=== PATIENT | female | born 2000 | race African-American/Black ===

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

== ENCOUNTER 2019-05-14 11:47 | Inpatient (IN) | payer MEDICAID ==
[2019-05-14] MEDS ORDERED: ONDANSETRON 4 MG TAB.RAPDIS PO ONE (12:46)
[2019-05-14] MEDS ORDERED: FENTANYL CITRATE INJ/PF 100 MCG/2 ML AMPUL IM ONE (12:47)
[2019-05-14] MEDS ORDERED: NORMAL SALINE 1000 ML 1,000 ML IV ONE ×2 (12:47→20:12)
--- NOTE | 2019-05-14 12:54 | ER Document Report ---
ED Medical Screen (RME) - General Chief Complaint: General Weakness Stated Complaint: WEAKNESS Time Seen by Provider: 05/14/19 12:39 Primary Care Provider: RUTH MCBRIDE MD [Primary Care Provider] - Follow up as needed Notes: Patient is a 18-year-old female who presents to the emergency department with abdominal pain. Patient is autistic and parents are at bedside to provide additional history. Parents state that she had abdominal pain starting yesterday and she had a couple of large bowel movements, but still has pain. States that she has been moaning and groaning since then. Parents state that 1 of the new caregivers was placing raw eggs in her Ramen noodles and letting them cook that way. Patient has a past medical history of an E. coli infection and was transferred to [place]. Exam: Patient holding abdomen, mildly tender mid abdomen. I have greeted and performed a rapid initial assessment of this patient. A comprehensive ED assessment and evaluation of the patient, analysis of test re sults and completion of medical decision making process will be conducted by an additional ED providers. TRAVEL OUTSIDE OF THE [place] IN LAST 30 DAYS: No - Related Data Allergies/Adverse Reactions: No Known Allergies Allergy (Verified 05/14/19 11:48) Past Medical History - Past Medical History Cardiac Medical History: Denies: Hx Congestive Heart Failure, Hx Coronary Artery Disease, Hx Hypertension, Hx Heart Murmur Renal/ Medical History: Denies: Hx Peritoneal Dialysis Past Surgical History: Reports: Hx Orthopedic Surgery - ankles and feet. Denies: Hx Cardiac Catheterization, Hx Pacemaker, Hx Valve Replacement, Hx Vascular Surgery - Immunizations Immunizations up to date: Yes Hx Diphtheria, Pertussis, Tetanus Vaccination: Yes History of Influenza Vaccine for 07/2017 - 12/2017 Season: No Physical Exam - Vital signs Vitals: Pulse Resp BP Pulse Ox 101 H 17 119/67 94 05/14/19 11:53 05/14/19 11:53 05/14/19 11:53 05/14/19 11:53 Course - Vital Signs Vital signs: Temp Pulse Resp BP Pulse Ox 101 H 17 119/67 94 05/14/19 11:53 05/14/19 11:53 05/14/19 11:53 05/14/19 11:53 Doctor's Discharge - Discharge Referrals: RUTH MCBRIDE MD [Primary Care Provider] - Follow up as needed
[2019-05-14] MEDS ORDERED: LORAZEPAM INJ 2 MG/1 ML VIAL IV ONE ×2 (14:41→16:20)
[2019-05-14] MEDS ORDERED: KETAMINE HCL INJ 500 MG/10 ML VIAL IV ONE ×2 (14:41→16:35)
--- NOTE | 2019-05-14 14:48 | ER Document Report ---
ED General - General Chief Complaint: General Weakness Stated Complaint: WEAKNESS Time Seen by Provider: 05/14/19 12:39 Primary Care Provider: RUTH MCBRIDE MD [ACTIVE STAFF] - Follow up as needed Information source: Parent Notes: 18-year-old autistic female brought in by parents for fevers over possible E. coli infection. Mother states that the patient has been having several large maliha wel movements as well as some diarrhea since last evening. Also states that the patient is having vomiting 1-2 times yesterday. Patient has been bending over complaining of abdominal pain and not sleeping since last evening. Mother checked the forehead temperature and it was normal. Mother states that the child was exposed to raw eggs when 1 of her caregivers felt her a raw egg cracked into a bowl of Ramen fresh from the microwave. Mother is very concerned because when she had similar symptoms to this last year the patient "had a E. coli and had to be life flighted and almost ." Mother states that they were never able to do any work-up without using ketamine. States that she would like the child to receive ketamine for sedation prior to doing any work-up. Has thus far refused any work-up. TRAVEL OUTSIDE OF THE [place] IN LAST 30 DAYS: No - Related Data Allergies/Adverse Reactions: No Known Allergies Allergy (Verified 05/14/19 11:48) Past Medical History - General Information source: Parent - Social History Smoking Status: Never Smoker Frequency of alcohol use: None Drug Abuse: None Family History: Reviewed & Not Pertinent Patient has suicidal ideation: No Patient has homicidal ideation: No - Past Medical History Cardiac Medical History: Denies: Hx Congestive Heart Failure, Hx Coronary Artery Disease, Hx Hypertension, Hx Heart Murmur Renal/ Medical History: Denies: Hx Peritoneal Dialysis Past Surgical History: Reports: Hx Orthopedic Surgery - ankles and feet. Denies: Hx Cardiac Catheterization, Hx Pacemaker, Hx Valve Replacement, Hx Vascular Surgery - Immunizations Immunizations up to date: Yes Hx Diphtheria, Pertussis, Tetanus Vaccination: Yes Review of Systems - Review of Systems -: Yes ROS unobtainable due to patient's medical condition - Patient is autistic and nonverbal. Physical Exam - Vital signs Vitals: Pulse Resp BP Pulse Ox 101 H 17 119/67 94 05/14/19 11:53 05/14/19 11:53 05/14/19 11:53 05/14/19 11:53 Interpretation: Tachycardic - Notes Notes: GENERAL: Laying in bed, covered by blanket, not interacting. Occasionally moans. HEAD: Normocephalic, atraumatic EYES: Eyes are closed, will not open them. ENT: Oral mucosa moist, tongue midline. NECK: Full range of motion, supple, trachea midline. LUNGS: Clear to auscultation bilaterally, no wheezes, rales or rhonchi, no respiratory distress. HEART: Regular rate and rhythm, no murmurs, gallops, rubs. ABDOMEN: Laying in her right hand side, flexed into a ball, will not roll onto her back, parents refused to help me roll onto her back. Abdomen is generally soft, some mild tenderness in the right lower quadrant, bowel sounds are present in all 4 quadrants. Abdominal exam is very difficult in her current position. EXTREMITIES: Moves all 4 extremities spontaneously, no edema, radial and dorsalis pedis pulses 2/4 bilaterally. No cyanosis. NEUROLOGICAL: Laying on the bed on her side, does not follow commands, screams when father attempts to hold her left hand so I can examine her abdomen, relativ melinda close to her baseline per mother. SKIN: Warm, Dry, normal turgor, no rashes or lesions noted. Course - Re-evaluation Re-evalutation: 05/14/19 20:10 CBC shows low platelets of 108 otherwise unremarkable, CMP shows slightly elevat ed AST at 93 otherwise unremarkable, lipase elevated 1882. Urinalysis does not show any signs of infection. CT scan of the abdomen and pelvis shows moderate inflammatory changes around the pancreas. Patient's work-up is concerning for pancreatitis. The patient did require a large amount of medication order sedate her enough to get her work-up completed. Patient was initially given 200 mg of ketamine IM with 2 mg of Ativan IM. Patient was still not able to cooperate with the blood draw, CAT scan and cath urine so we gave her another 2 mg of ketamine IM, this enabled us to get an IV and we gave her then 1 mg of Ativan through the IV and then after the mother told us that Ativan actually tends to make her more agitated rather than less agitated we stopped using Ativan and started giving ketamine through the IV. Of note I did tell the mother before we gave the Ativan that we are going to use Ativan like they did last time to sedate her and mother agreed with that plan. Did not make is aware of the fact that Ativan tends to agitate her daughter. Discussed with the parents that they would need to keep her on a clear liquid diet for the next 2 days and return if she worsens and they are very uncomfortable with this plan, patient is not neuro typical, they are concerned that they would not be able to appropriately care for her at home. I do agree with this potential concern, patient was discussed with Dr. Breaux who will admit the patient to his service for first-time pancreatitis. - Vital Signs Vital signs: Temp Pulse Resp BP Pulse Ox 99 H 15 133/91 H 98 05/14/19 19:30 05/14/19 19:30 05/14/19 19:30 05/14/19 19:30 - Laboratory Result Diagrams: 05/14/19 16:19 05/14/19 16:19 Laboratory results interpreted by me: 05/14/19 05/14/19 05/14/19 16:19 16:19 16:47 Hct 35.8 L RDW 14.1 H Plt Count 108 L Direct Bilirubin 0.6 H AST 93 H Lipase Urine Protein 100 H Urine Ketones 20 H Urine Bilirubin SMALL H Urine Urobilinogen 4.0 H 05/14/19 18:40 Hct RDW Plt Count Direct Bilirubin AST Lipase 1882.2 H Urine Protein Urine Ketones Urine Bilirubin Urine Urobilinogen Discharge - Discharge Clinical Impression: Pancreatitis, acute Condition: Stable Disposition: ADMITTED INPATIENT Admitting Provider: Saeid (Hospitalist) Unit Admitted: Medical Floor Referrals: RUTH MCBRIDE MD [ACTIVE STAFF] - Follow up as needed
[2019-05-14] MEDS ORDERED: KETAMINE HCL INJ 500 MG/10 ML VIAL IM ONE ×3 (15:01→16:04)
[2019-05-14] MEDS ORDERED: LORAZEPAM INJ 2 MG/1 ML VIAL IM ONE (15:02)
[2019-05-14] MEDS ORDERED: KETAMINE HCL INJ 500 MG/10 ML VIAL ONE (15:39)
[2019-05-14] MEDS ORDERED: LORAZEPAM INJ 2 MG/1 ML VIAL ONE (16:24)
[2019-05-14 16:39] LABS: ABSOLUTE LYMPHOCYTES (AUTO) 1.4 10^3/uL (0.5-4.7); ABSOLUTE MONOCYTES (AUTO) 0.9 10^3/uL (0.1-1.4); ABSOLUTE NEUT (AUTO) 6.4 10^3/uL (1.7-8.2); BASOPHILS % (AUTO) 0.5 % (0-2); EOSINOPHILS % (AUTO) 0.2 % (0-6); HEMATOCRIT 35.8 % (36.0-47.0); HEMOGLOBIN 12.1 g/dL (12.0-15.5); LYMPHOCYTES % (AUTO) 16.1 % (13-45); MEAN CORPUSCULAR HEMOGLOBIN 32.3 pg (27.0-33.4); MEAN CORPUSCULAR HGB CONC 33.9 g/dL (32.0-36.0); MEAN CORPUSCULAR VOLUME 95 fl (80-97); MONOCYTES % (AUTO) 10.6 % (3-13); RED BLOOD COUNT 3.75 10^6/uL (3.72-5.28); RED CELL DISTRIBUTION WIDTH 14.1 % (11.5-14.0); SEGMENTED NEUTROPHILS % (AUTO) 72.6 % (42-78); TOTAL CELLS COUNTED % (AUTO) 100 %; WHITE BLOOD COUNT 8.8 10^3/uL (4.0-10.5)
[2019-05-14 16:58] LABS: PLATELET COUNT 108 10^3/uL (150-450)
[2019-05-14 17:13] LABS: ALBUMIN 3.7 g/dL (3.7-5.6); ALKALINE PHOSPHATASE 50 U/L (50-135); ANION GAP 13 (5-19); ASPARTATE AMINO TRANSFERASE 93 U/L (5-30); BILIRUBIN,DIRECT 0.6 mg/dL (0.0-0.4); BILIRUBIN,TOTAL 0.8 mg/dL (0.2-1.3); BLOOD UREA NITROGEN 14 mg/dL (7-20); CALCIUM 8.6 mg/dL (8.4-10.2); CARBON DIOXIDE 23 mmol/L (22-30); CHLORIDE 103 mmol/L (98-107); GLUCOSE 98 mg/dL (75-110); POTASSIUM 4.4 mmol/L (3.6-5.0); TOTAL PROTEIN 7.7 g/dL (6.3-8.2)
[2019-05-14 17:18] LABS: APPEARANCE,URINE CLEAR; BILIRUBIN,URINE SMALL (NEGATIVE); COLOR,URINE AMBER; GLUCOSE, URINE NEGATIVE (NEGATIVE); KETONES,URINE 20 mg/dL (NEGATIVE); LEUKOCYTE ESTERASE,URINE NEGATIVE (NEGATIVE); NITRITE,URINE NEGATIVE (NEGATIVE); PROTEIN,URINE 100 mg/dL (NEGATIVE); URINE SPECIFIC GRAVITY 1.025
--- NOTE | 2019-05-14 18:29 | RADIOLOGY REPORT (SQ) ---
EXAM DESCRIPTION: CT ABD/PELVIS WITH IV ONLY COMPLETED DATE/TIME: 05/14/2019 5:53 pm REASON FOR STUDY: vomiting, diarrhea, abdominal pain COMPARISON: None. TECHNIQUE: CT scan of the abdomen and pelvis performed using helical scanning technique with dynamic intravenous contrast injection. No oral contrast. Images reviewed with lung, soft tissue, and bone w indows. Reconstructed coronal and sagittal MPR images reviewed. Delayed images for evaluation of the urinary system also acquired. All images stored on PACS. All CT scanners at this facility use dose modulation, iterative reconstruction, and/or weight based d osing when appropriate to reduce radiation dose to as low as reasonably achievable (ALARA). [facility]: Dose Right [facility]: CareDose [facility]: Dose Right [facility]: Teradose 4D [facility]: [place]-8 CONTRAST TYPE AND DOSE: contrast/concentration: Isovue 350.00 mg/ml; Total Contrast Delivered: 97.0 ml; Total Saline Delivered: 72.0 ml RENAL FUNCTION: None required. The patient is less than 50 years old. RADIATION DOSE: CT Rad equipment meets quality standard of care and radiation dose reduction techniq ues were employed. CTDIvol: 18.4 - 20.3 mGy. DLP: 2345 mGy-cm.. LIMITATIONS: None. FINDINGS: LOWER CHEST: Minimal subsegmental atelectasis. LIVER: Normal size. No enhancing masses. No dilated ducts. SPLEEN: Normal size. No focal lesions. PANCREAS: Moderate inflammation adjacent to the pancreas. Pancreatic duct not dilated. GALLBLADDER: No calcified stones. No inflammatory changes to suggest cholecystitis. ADRENAL GLANDS: No significant masses. RIGHT KIDNEY AND URETER: No cysts identified. No solid masses identified. No calcified stones. No hyd ronephrosis or hydroureter. LEFT KIDNEY AND URETER: No cysts identified. No solid masses identified. No calcified stones. No hydr onephrosis or hydroureter. AORTA AND VESSELS: No aneurysm. No dissection. Renal arteries, SMA, celiac without significant stenos is. RETROPERITONEUM: No bulky retroperitoneal adenopathy. BOWEL AND PERITONEAL CAVITY: No obstruction or inflammatory changes. No free fluid. APPENDIX: Normal. PELVIS: Moderate free fluid. Unremarkable bladder. ABDOMINAL WALL: No masses. No hernias. BONES: No acute findings. OTHER: No other significant finding. IMPRESSION: Moderate inflammation adjacent to the pancreas. TECHNICAL DOCUMENTATION: JOB ID: [id number] Quality ID # [id number]: Final reports with documentation of one or more dose reduction techniques (e.g., Au tomated exposure control, adjustment of the mA and/or kV according to patient size, use of iterative reconstruction technique) 2010 [employer]- All Rights Reserved Reading location - IP/workstation name: [email or web address]
[2019-05-14] MEDS ORDERED: ACETAMINOPHEN 325 MG TABLET PO PRN (20:07)
[2019-05-14] MEDS ORDERED: MAG HYDROX/AL HYDROX/SIMETH SUSP 30 ML UDCUP PO PRN (20:07)
[2019-05-14] MEDS ORDERED: LACTULOSE SYRUP 20 GM/30 ML UDCUP PO ONE (20:17)
[2019-05-14] MEDS ORDERED: ARIPIPRAZOLE 5 MG TABLET PO ONE (21:00)
[2019-05-14] MEDS ORDERED: KETOROLAC TROMETHAMINE INJ/PF 30 MG/1 ML SDV IV PRN (21:24)
[2019-05-14] MEDS: HEPARIN SOD (PORCINE) 5,000 UNIT/ML 1 ML VIAL SUBCUT SCH (21:40)
[2019-05-14] MEDS: KETOROLAC TROMETHAMINE INJ/PF 30 MG/1 ML SDV IV PRN (21:40)
--- NOTE | 2019-05-15 03:10 | PDOC H&P ---
History of Present Illness Admission Date/PCP: 05/14/19 20:24 GERBER REDDY Patient complains of: Vomiting History of Present Illness: AARTI WOODALL is a 18 year old female with a past medical history of autism, obesity and nonverbal state at baseline. She presents with 2 episodes of vomiting and constipation prompting evaluation that required Ativan and ketamine sedation she is found to have acute pancreatitis and constipation with a lipase of 1800, CT with inflammatory changes about the pancreas and moderate stool retention. She is referred to the hospitalist for admission. She is in a drowsy state and uncooperative. Patient's family at bedside denies recent change in medications. Denies previous episode. Past Medical History Cardiac Medical History: Denies: Congestive Heart Failure, Coronary Artery Disease, Hypertension, Heart Murmur Neurological Medical History: Reports: Other - Autism and nonverbal at baseline Endocrine Medical History: Reports: Obesity Psychiatric Medical History: Denies: Depression Past Surgical History Past Surgical History: Reports: Orthopedic Surgery - ankles and feet Denies: Cardiac Catheterization, Pacemaker, Valve Replacement, Vascular Surge ry Social History Information Source: Relative, [facility] Records Lives with: Family Smoking Status: Never Smoker Frequency of Alcohol Use: None Hx Recreational Drug Use: No Drugs: None Hx Prescription Drug Abuse: No - Advance Directive Resuscitation Status: Full Code Family History Family History: DM, Other - End-stage renal failure mother Parental Family History Reviewed: Yes Children Family History Reviewed: Yes Sibling(s) Family History Reviewed.: Yes Medication/Allergy Home Medications: Chlorpromazine HCl [Chlorpromazine HCL 200 mg Tablet] 200 mg PO Q12 03/14/18 Divalproex Sodium [Depakote ER 500 mg Tab.sr] 1,000 mg PO QPM 03/14/18 Divalproex Sodium [Depakote ER 500 mg Tab.sr] 500 mg PO QAM 03/14/18 Guanfacine HCl 1 mg PO QAM 03/14/18 Guanfacine HCl 2 mg PO QHS 03/14/18 Naltrexone 50 mg PO BID 03/14/18 Norethindrone-E.estradiol-Iron [Loestrin Fe 1-20 Tablet] 1 each PO DAILY 03/14/18 Propranolol HCl [Inderal 10 mg Tablet] 10 mg PO Q12 03/14/18 Quetiapine Fumarate [Seroquel] 50 mg PO QAM 03/14/18 Quetiapine Fumarate [Seroquel] 150 mg PO QHS 03/14/18 Trazodone HCl [Desyrel] 300 mg PO QHS 03/14/18 Trihexyphenidyl HCl 5 mg PO Q12 03/14/18 Allergies/Adverse Reactions: No Known Allergies Allergy (Verified 05/14/19 11:48) Review of Systems ROS unobtainable: Due to mental status Physical Exam Vital Signs: Temp Pulse Resp BP Pulse Ox 98.6 F 100 H 16 111/71 98 05/15/19 00:00 05/15/19 00:00 05/15/19 00:00 05/15/19 00:00 05/15/19 00:00 Intake & Output 05/13/19 05/14/19 05/15/19 11:59 11:59 11:59 Intake Total 1999 Balance 1999 Weight 95.1 kg 99.4 kg General appearance: PRESENT: mild distress, morbidly obese, well-developed, well-nourished. ABSENT: cooperative Head exam: PRESENT: atraumatic, normocephalic Eye exam: PRESENT: conjunctiva pink, EOMI, PERRLA. ABSENT: scleral icterus Ear exam: PRESENT: normal external ear exam Mouth exam: PRESENT: moist, tongue midline Neck exam: ABSENT: carotid bruit, JVD, lymphadenopathy, thyromegaly Respiratory exam: PRESENT: clear to auscultation marisela. ABSENT: rales, rhonchi, wheezes Cardiovascular exam: PRESENT: RRR. ABSENT: diastolic murmur, rubs, systolic murmur Pulses: PRESENT: normal dorsalis pedis pul Vascular exam: PRESENT: normal capillary refill GI/Abdominal exam: PRESENT: distended, hypoactive bowel sounds, normal bowel sounds, soft, tenderness. ABSENT: guarding, mass, organolmegaly, rebound Rectal exam: PRESENT: deferred Extremities exam: PRESENT: full ROM. ABSENT: calf tenderness, clubbing, pedal edema Neurological exam: PRESENT: alert, awake, oriented to person, oriented to place, oriented to time, oriented to situation, CN II-XII grossly intact. ABSENT: motor sensory deficit Psychiatric exam: PRESENT: appropriate affect, normal mood. ABSENT: homicidal i deation, suicidal ideation Skin exam: PRESENT: dry, intact, warm. ABSENT: cyanosis, rash Results Laboratory Results: 05/14/19 16:19 05/14/19 16:19 05/14/19 05/14/19 05/14/19 16:19 16:19 16:19 WBC 8.8 RBC 3.75 Hgb 12.1 Hct 35.8 L MCV 95 MCH 32.3 MCHC 33.9 RDW 14.1 H Plt Count 108 L Seg Neutrophils % 72.6 Lymphocytes % 16.1 Monocytes % 10.6 Eosinophils % 0.2 Basophils % 0.5 Absolute Neutrophils 6.4 Absolute Lymphocytes 1.4 Absolute Monocytes 0.9 Absolute Eosinophils 0.0 Absolute Basophils 0.0 Sodium 138.6 Potassium 4.4 Chloride 103 Carbon Dioxide 23 Anion Gap 13 BUN 14 Creatinine 0.96 Est GFR ( Amer) > 60 Est GFR (Non-Af Amer) > 60 Glucose 98 Lactic Acid 1.6 Calcium 8.6 Total Bilirubin 0.8 AST 93 H Alkaline Phosphatase 50 Ammonia Total Protein 7.7 Albumin 3.7 Lipase Urine Color Urine Appearance Urine pH Ur Specific [place] Urine Protein Urine Glucose (UA) Urine Ketones Urine Blood Urine Nitrite Ur Leukocyte Esterase Urine WBC (Auto) Urine RBC (Auto) 05/14/19 05/14/19 05/14/19 16:47 18:40 22:55 WBC RBC Hgb Hct MCV MCH MCHC RDW Plt Count Seg Neutrophils % Lymphocytes % Monocytes % Eosinophils % Basophils % Absolute Neutrophils Absolute Lymphocytes Absolute Monocytes Absolute Eosinophils Absolute Basophils Sodium Potassium Chloride Carbon Dioxide Anion Gap BUN Creatinine Est GFR ( Amer) Est GFR (Non-Af Amer) Glucose Lactic Acid Calcium Total Bilirubin AST Alkaline Phosphatase Ammonia 12.3 Total Protein Albumin Lipase 1882.2 H Urine Color SIMONA Urine Appearance CLEAR Urine pH 6.0 Ur Specific [place] 1.025 Urine Protein 100 H Urine Glucose (UA) NEGATIVE Urine Ketones 20 H Urine Blood NEGATIVE Urine Nitrite NEGATIVE Ur Leukocyte Esterase NEGATIVE Urine WBC (Auto) 6 Urine RBC (Auto) 7 Impressions: Abdomen/Pelvis CT 05/14/19 14:41 IMPRESSION: Moderate inflammation adjacent to the pancreas. Assessment and Plan - Diagnosis (1) Pancreatitis, acute Is this a current diagnosis for this admission?: Yes Plan: Bowel rest, hydration, symptomatic management, follow-up chemistry and triglycerides. Trial p.o. clear liquid diet with no longer requesting narcotic analgesia. Advance diet as tolerated. (2) Abdominal pain Is this a current diagnosis for this admission?: Yes Plan: Secondary to #1, symptom medic management avoid narcotics (3) Encephalopathy Is this a current diagnosis for this admission?: Yes Plan: Complicated by severe autism, follow-up valproic acid level, Abilify and Haldol as needed - Time Time Spent with patient: 35 or more minutes - Inpatient Certification Medical Necessity: Need Close Monitoring Due to Risk of Patient Decompensation
[2019-05-15] MEDS: HEPARIN SOD (PORCINE) 5,000 UNIT/ML 1 ML VIAL SUBCUT SCH ×3 (05:17→22:00)
[2019-05-15] MEDS: KETOROLAC TROMETHAMINE INJ/PF 30 MG/1 ML SDV IV PRN (06:24)
[2019-05-15 06:36] LABS: ABSOLUTE MONOCYTES (AUTO) 0.8 10^3/uL (0.1-1.4); ABSOLUTE NEUT (AUTO) 4.7 10^3/uL (1.7-8.2); BASOPHILS % (AUTO) 0.2 % (0-2); EOSINOPHILS % (AUTO) 0.1 % (0-6); HEMOGLOBIN 10.8 g/dL (12.0-15.5); LYMPHOCYTES % (AUTO) 26.7 % (13-45); MEAN CORPUSCULAR HEMOGLOBIN 32.7 pg (27.0-33.4); MEAN CORPUSCULAR HGB CONC 33.8 g/dL (32.0-36.0); MEAN CORPUSCULAR VOLUME 97 fl (80-97); MONOCYTES % (AUTO) 10.7 % (3-13); PLATELET COUNT 122 10^3/uL (150-450); RED BLOOD COUNT 3.31 10^6/uL (3.72-5.28); RED CELL DISTRIBUTION WIDTH 14.4 % (11.5-14.0); SEGMENTED NEUTROPHILS % (AUTO) 62.3 % (42-78); TOTAL CELLS COUNTED % (AUTO) 100 %; WHITE BLOOD COUNT 7.5 10^3/uL (4.0-10.5)
[2019-05-15 06:59] LABS: ALBUMIN 2.9 g/dL (3.7-5.6); ALKALINE PHOSPHATASE 51 U/L (50-135); ANION GAP 9 (5-19); ASPARTATE AMINO TRANSFERASE 46 U/L (5-30); BILIRUBIN,DIRECT 0.3 mg/dL (0.0-0.4); BILIRUBIN,TOTAL 0.4 mg/dL (0.2-1.3); BLOOD UREA NITROGEN 11 mg/dL (7-20); CARBON DIOXIDE 22 mmol/L (22-30); CHLORIDE 109 mmol/L (98-107); GLUCOSE 76 mg/dL (75-110); POTASSIUM 3.7 mmol/L (3.6-5.0); TOTAL PROTEIN 6.1 g/dL (6.3-8.2); TRIGLYCERIDES 75 mg/dL (<150)
[2019-05-15] MEDS ORDERED: LORAZEPAM INJ 2 MG/1 ML VIAL IV PRN (07:46)
[2019-05-15] MEDS ORDERED: MORPHINE SULFATE 10 MG/ML INJ IV PRN (07:46)
[2019-05-15] MEDS: DOCUSATE SODIUM 100 MG CAPSULE PO SCH ×2 (09:07→17:00)
[2019-05-15] MEDS ORDERED: NORMAL SALINE 1000 ML 1,000 ML IV PRN (09:38)
[2019-05-15] MEDS: LORAZEPAM INJ 2 MG/1 ML VIAL IV PRN ×4 (13:31→22:04)
[2019-05-15] MEDS: MORPHINE SULFATE 10 MG/ML INJ IV PRN ×4 (13:34→19:53)
[2019-05-15] MEDS ORDERED: NORMAL SALINE 1000 ML 1,000 ML IV ONE (14:39)
[2019-05-15] MEDS ORDERED: CHLORPROMAZINE HCL INJ 25 MG/1 ML AMPULE IV PRN (15:44)
--- NOTE | 2019-05-15 17:50 | PDOC PROGRESS REPORT ---
Subjective Progress Note for:: 05/15/19 Subjective:: AARTI WOODALL is a 18 year old female with a past medical history of autism, obesity and nonverbal state at baseline admitted 05/14/2019 for acute pancreatitis. The patient was seen on morning rounds and again this afternoon when her brother was present. During both visits, the patient was sleeping comfortably in prone position. Exam was limited secondary to positioning, and desire not to cause the patient undue anxiety/agitation. Per the patient's brother, she is nonverbal at baseline and has extreme difficulty with new situations and tasks. He advises that even during m minor doctor's visits and hospital stays she requires sedation. ROS is limited secondary to her baseline mental status and current medications on board. She does appear to be comfortable and not in any acute distress at this time. Discussed plan of care with nursing on multiple occasions today. Reason For Visit: ACUTE PANCREATITIS Physical Exam Vital Signs: Temp Pulse Resp BP Pulse Ox 98.5 F 93 H 17 128/75 H 96 05/15/19 08:00 05/15/19 16:00 05/15/19 16:00 05/15/19 08:00 05/15/19 16:00 Intake & Output 05/14/19 05/15/19 05/16/19 06:59 06:59 06:59 Intake Total 1999 1183 Balance 1999 1183 Weight 99.4 kg General appearance: PRESENT: no acute distress, morbidly obese, well-developed, well-nourished Head exam: PRESENT: atraumatic, normocephalic Eye exam: PRESENT: conjunctiva pink, EOMI, PERRLA. ABSENT: scleral icterus Mouth exam: PRESENT: moist, tongue midline Neck exam: ABSENT: carotid bruit, JVD, lymphadenopathy, thyromegaly Respiratory exam: PRESENT: clear to auscultation marisela, symmetrical, unlabored. ABSENT: rales, rhonchi, wheezes Pulses: PRESENT: normal dorsalis pedis pul Vascular exam: PRESENT: normal capillary refill GI/Abdominal exam: PRESENT: soft Rectal exam: PRESENT: deferred Extremities exam: PRESENT: full ROM. ABSENT: calf tenderness, clubbing, pedal edema Musculoskeletal exam: PRESENT: ambulatory Neurological exam: PRESENT: CN II-XII grossly intact, other - Arousable, oriented to baseline. ABSENT: motor sensory deficit Psychiatric exam: PRESENT: anxious Skin exam: PRESENT: dry, intact, warm. ABSENT: cyanosis, rash Results Laboratory Results: 05/15/19 05:40 05/15/19 05:40 05/14/19 05/14/19 05/15/19 18:40 22:55 05:40 WBC RBC Hgb Hct MCV MCH MCHC RDW Plt Count Seg Neutrophils % Lymphocytes % Monocytes % Eosinophils % Basophils % Absolute Neutrophils Absolute Lymphocytes Absolute Monocytes Absolute Eosinophils Absolute Basophils Sodium 140.1 Potassium 3.7 Chloride 109 H Carbon Dioxide 22 Anion Gap 9 BUN 11 Creatinine 0.76 Est GFR ( Amer) > 60 Est GFR (Non-Af Amer) > 60 Glucose 76 Calcium 8.0 L Total Bilirubin 0.4 AST 46 H Alkaline Phosphatase 51 Ammonia 12.3 Total Protein 6.1 L Albumin 2.9 L Triglycerides 75 Lipase 1882.2 H 05/15/19 05:40 WBC 7.5 RBC 3.31 L Hgb 10.8 L Hct 32.0 L MCV 97 MCH 32.7 MCHC 33.8 RDW 14.4 H Plt Count 122 L Seg Neutrophils % 62.3 Lymphocytes % 26.7 Monocytes % 10.7 Eosinophils % 0.1 Basophils % 0.2 Absolute Neutrophils 4.7 Absolute Lymphocytes 2.0 Absolute Monocytes 0.8 Absolute Eosinophils 0.0 Absolute Basophils 0.0 Sodium Potassium Chloride Carbon Dioxide Anion Gap BUN Creatinine Est GFR ( Amer) Est GFR (Non-Af Amer) Glucose Calcium Total Bilirubin AST Alkaline Phosphatase Ammonia Total Protein Albumin Triglycerides Lipase Impressions: Abdomen/Pelvis CT 05/14/19 14:41 IMPRESSION: Moderate inflammation adjacent to the pancreas. Assessment and Plan - Diagnosis (1) Pancreatitis, acute Is this a current diagnosis for this admission?: Yes Plan: Patient is admitted to the medical floor. Lipase is elevated to 1882. Check lipid panel with a.m. lab work. Currently in n.p.o. status. Antiemetics and analgesics as needed. Have discussed with nursing, patient to receive 1 L normal saline bolus following her next pain medication administration (administer so as continuous IV fluids have caused the patient to have severe anxiety/agitation; this way her fluid boluses will hopefully be done by the time she wakes following morphine). She did receive 2 L normal saline by the ED provider yesterday. We will need to monitor closely for evidence of dehydration while getting intermittent fluid boluses. Advance to clear liquids as tolerated. (2) Abdominal pain Is this a current diagnosis for this admission?: Yes Plan: Secondary to #1 Analgesics as needed. (3) Encephalopathy Is this a current diagnosis for this admission?: Yes Plan: Complicated by severe autism Valproic acid 67.1 Continue home medication regiment. IV Ativan as needed Spoke with mental health, recommended as needed Thorazine. (4) Autism Is this a current diagnosis for this admission?: Yes Plan: Home medication regimen is continued. Family members are encouraged to stay with patient. Sitter for safety. - Time Time Spent with patient: 35 or more minutes Medications reviewed and adjusted accordingly: Yes Anticipated discharge: Home Within: within 48 hours
[2019-05-15] MEDS ORDERED: NALTREXONE 50 MG PO SCH (18:00)
[2019-05-15] MEDS: DIVALPROEX SODIUM 500 MG TAB.SR.24H PO SCH (18:27)
[2019-05-15] MEDS ORDERED: TRAZODONE HCL 50 MG TABLET PO SCH (22:00)
[2019-05-15] MEDS ORDERED: QUETIAPINE FUMARATE 100 MG TABLET PO SCH (22:00)
[2019-05-15] MEDS ORDERED: (PENDING PHARMACY ID) (Trazodone Hcl [Desyrel] 300 MG) PO SCH (22:00)
[2019-05-15] MEDS ORDERED: QUETIAPINE FUMARATE 150 MG PO SCH (22:00)
[2019-05-15] MEDS ORDERED: ARIPIPRAZOLE 5 MG TABLET PO SCH (22:00)
[2019-05-15] MEDS ORDERED: GUANFACINE HCL 2 MG PO SCH (22:00)
[2019-05-15] MEDS ORDERED: CHLORPROMAZINE HCL PO SCH (22:00)
[2019-05-15] MEDS ORDERED: QUETIAPINE FUMARATE 25 MG TABLET PO SCH (22:00)
[2019-05-15] MEDS: PROPRANOLOL HCL 10 MG TABLET PO SCH (22:07)
[2019-05-15] MEDS: CHLORPROMAZINE HCL 50 MG TABLET PO SCH (22:08)
[2019-05-16] MEDS: MORPHINE SULFATE 10 MG/ML INJ IV PRN ×5 (03:51→12:23)
[2019-05-16] MEDS: LORAZEPAM INJ 2 MG/1 ML VIAL IV PRN ×4 (04:43→12:23)
[2019-05-16] MEDS: HEPARIN SOD (PORCINE) 5,000 UNIT/ML 1 ML VIAL SUBCUT SCH ×3 (05:12→21:22)
[2019-05-16 06:54] LABS: HEMATOCRIT 31.1 % (36.0-47.0); HEMOGLOBIN 10.5 g/dL (12.0-15.5); MEAN CORPUSCULAR HEMOGLOBIN 33.1 pg (27.0-33.4); MEAN CORPUSCULAR HGB CONC 33.7 g/dL (32.0-36.0); MEAN CORPUSCULAR VOLUME 98 fl (80-97); PLATELET COUNT 140 10^3/uL (150-450); RED BLOOD COUNT 3.17 10^6/uL (3.72-5.28); WHITE BLOOD COUNT 6.7 10^3/uL (4.0-10.5)
[2019-05-16 07:09] LABS: ALKALINE PHOSPHATASE 46 U/L (50-135); ANION GAP 10 (5-19); ASPARTATE AMINO TRANSFERASE 53 U/L (5-30); BILIRUBIN,DIRECT 0.4 mg/dL (0.0-0.4); BILIRUBIN,TOTAL 0.4 mg/dL (0.2-1.3); BLOOD UREA NITROGEN 10 mg/dL (7-20); CALCIUM 8.5 mg/dL (8.4-10.2); CARBON DIOXIDE 21 mmol/L (22-30); CHLORIDE 110 mmol/L (98-107); CHOLESTEROL 156.24 mg/dL (0-200); GLUCOSE 76 mg/dL (75-110); POTASSIUM 4.2 mmol/L (3.6-5.0); TOTAL PROTEIN 6.2 g/dL (6.3-8.2); TRIGLYCERIDES 97 mg/dL (<150)
[2019-05-16 07:20] LABS: DIRECT LDL 92 mg/dL (<100)
[2019-05-16] MEDS ORDERED: NORMAL SALINE 1000 ML 1,000 ML IV PRN (07:54)
--- NOTE | 2019-05-16 07:59 | Progress Note Acknowledgement ---
Progress Note Acknowledgement Progess Note Acknowledgement: I, the undersigned member of the medical staff with appropriate privileges and with supervisory authority over [Akash Mendoza], a dependent practice allied health professional, acknowledge that I have reviewed the progress notes entered on this patient, and in my professional judgment believe that the assessment made and/or any care evidenced was appropriate
[2019-05-16] MEDS ORDERED: QUETIAPINE FUMARATE 25 MG TABLET PO SCH (08:00)
[2019-05-16] MEDS ORDERED: (PENDING PHARMACY ID) (Guanfacine Hcl [Guanfacine Hcl] 1 MG) PO SCH (08:00)
[2019-05-16] MEDS ORDERED: (PENDING PHARMACY ID) (Quetiapine Fumarate [Seroquel] 50 MG) PO SCH (08:00)
[2019-05-16] MEDS ORDERED: DIVALPROEX SODIUM 500 MG TAB.SR.24H PO SCH (08:00)
--- NOTE | 2019-05-16 08:03 | PDOC PROGRESS REPORT ---
Subjective Progress Note for:: 05/16/19 Subjective:: May 16, 2019-unable to assess secondary to autism Reason For Visit: ACUTE PANCREATITIS Physical Exam Vital Signs: Temp Pulse Resp BP Pulse Ox 98.4 F 103 H 17 116/69 94 05/16/19 00:00 05/16/19 00:00 05/16/19 00:00 05/16/19 00:00 05/16/19 00:00 Intake & Output 05/15/19 05/16/19 05/17/19 06:59 06:59 06:59 Intake Total 1999 1183 Balance 1999 118 Weight 99.4 kg 35.4 kg General appearance: PRESENT: no acute distress, well-developed, well-nourished Neck exam: ABSENT: carotid bruit, JVD, lymphadenopathy, thyromegaly Respiratory exam: PRESENT: clear to auscultation marisela. ABSENT: rales, rhonchi, wheezes Cardiovascular exam: PRESENT: bradycardia Pulses: PRESENT: normal carotid pulses Vascular exam: PRESENT: normal capillary refill GI/Abdominal exam: PRESENT: normal bowel sounds, soft. ABSENT: distended, guarding, mass, organolmegaly, rebound, tenderness Extremities exam: PRESENT: full ROM. ABSENT: calf tenderness, clubbing, pedal edema Neurological exam: PRESENT: alert, awake, oriented to person, oriented to place, oriented to time, oriented to situation, CN II-XII grossly intact. ABSENT: tom r sensory deficit Psychiatric exam: PRESENT: other - Unable to assess secondary to autism Focused psych exam: PRESENT: other - Unable to assess secondary to autism Skin exam: PRESENT: dry, intact, warm. ABSENT: cyanosis, rash Results Laboratory Results: 05/16/19 06:25 05/16/19 06:25 05/16/19 05/16/19 06:25 06:25 WBC 6.7 RBC 3.17 L Hgb 10.5 L Hct 31.1 L MCV 98 H MCH 33.1 MCHC 33.7 RDW 14.0 Plt Count 140 L Sodium 141.1 Potassium 4.2 Chloride 110 H Carbon Dioxide 21 L Anion Gap 10 BUN 10 Creatinine 0.81 Est GFR ( Amer) > 60 Est GFR (Non-Af Amer) > 60 Glucose 76 Calcium 8.5 Total Bilirubin 0.4 AST 53 H Alkaline Phosphatase 46 L Total Protein 6.2 L Albumin 3.0 L Triglycerides 97 Cholesterol 156.24 LDL Cholesterol Direct 92 VLDL Cholesterol 19.0 HDL Cholesterol 49 Impressions: Abdomen/Pelvis CT 05/14/19 14:41 IMPRESSION: Moderate inflammation adjacent to the pancreas. Assessment and Plan - Diagnosis (1) Pancreatitis, acute Is this a current diagnosis for this admission?: Yes Plan: Patient is admitted to the medical floor. Lipase is elevated to 1882. Check lipid panel with a.m. lab work. Currently in n.p.o. status. Antiemetics and analgesics as needed. Have discussed with nursing, patient to receive 1 L normal saline bolus following her next pain medication administration (administer so as continuous IV fluids have caused the patient to have severe anxiety/agitation; this way her fluid boluses will hopefully be done by the time she wakes following morphine). She did receive 2 L normal saline by the ED provider yesterday. We will need to monitor closely for evidence of dehydration while getting intermittent fluid boluses. Advance to clear liquids as tolerated. May 16, 2019-awaiting repeat lipase. Continue n.p.o. status. Continue normal saline at 100 mL an hour. Once I have a review of her most recent lipase I will make determination on advancing diet at that time. (2) Abdominal pain Is this a current diagnosis for this admission?: Yes Plan: Secondary to #1 Analgesics as needed. May 16, 2019-continue PRN morphine. (3) Encephalopathy Is this a current diagnosis for this admission?: Yes Plan: Complicated by severe autism Valproic acid 67.1 Continue home medication regiment. IV Ativan as needed Spoke with mental health, recommended as needed Thorazine. May 16, 2019-unable to assess secondary to severe autism. Continue home medications as well as as needed Ativan for agitation. We will continue Thor azine as needed as well. (4) Autism Is this a current diagnosis for this admission?: Yes Plan: Home medication regimen is continued. Family members are encouraged to stay with patient. Sitter for safety. May 16, 2019-continue home medications, sitter at bedside. (5) UTI (urinary tract infection) Is this a current diagnosis for this admission?: Yes Plan: May 16, 2019-urine culture showing gram-negative rods. At this time we will start Rocephin 1 g IV daily await cultures returned with sensitivity. - Time Time Spent with patient: 15-24 minutes - Inpatient Certification Based on my medical assessment, after consideration of the patient's comorbidities, presenting symptoms, or acuity I expect that the services needed warrant INPATIENT care.: Yes I certify that my determination is in accordance with my understanding of Medicare's requirements for reasonable and necessary INPATIENT services [42 CFR 412.3e].: Yes Medical Necessity: Other - IV fluids, IV antibiotics, pain control.
[2019-05-16] MEDS ORDERED: CEFTRIAXONE SODIUM 1,000 MG in DEXTROSE 5%-WATER 50 ML IV SCH (10:00)
[2019-05-16] MEDS ORDERED: [UNRECOGNIZED DRUG - OTHER] PO SCH (10:00)
[2019-05-16] MEDS ORDERED: CEFTRIAXONE 1 GM/D5W RTU 1 GM/50 ML RTUPB IV SCH (10:00)
[2019-05-16] MEDS ORDERED: TRIHEXYPHENIDYL HCL 5 MG TABLET PO SCH (10:00)
[2019-05-16] MEDS: DOCUSATE SODIUM 100 MG CAPSULE PO SCH ×2 (11:52→18:00)
[2019-05-16] MEDS: CHLORPROMAZINE HCL 50 MG TABLET PO SCH (11:53)
[2019-05-16] MEDS: PROPRANOLOL HCL 10 MG TABLET PO SCH (11:53)
[2019-05-16] MEDS ORDERED: NALOXONE HCL INJ/PF 0.4 MG/1 ML SDV ONE ×2 (12:50→14:20)
[2019-05-16] MEDS ORDERED: FLUMAZENIL INJ 0.5 MG/5 ML VIAL ONE ×2 (13:02→14:20)
[2019-05-16 13:31] LABS: ARTERIAL BLOOD BASE EXCESS -6.9 mmol/L; ARTERIAL BLOOD H2CO3 1.38 mmol/L (1.05-1.35); ARTERIAL BLOOD PH 7.26 (7.35-7.45); ARTERIAL BLOOD PO2 177.8 mmHg (80-100); ARTERIAL BLOOD TOTAL CO2 21.5 mmol/L (21-25)
[2019-05-16 13:32] LABS: ARTERIAL BLOOD FIO2 100%
[2019-05-16] MEDS ORDERED: PROPOFOL 1,000 MG/100 ML INFUS..BTL IV PRN (13:33)
[2019-05-16] MEDS ORDERED: MIDAZOLAM 2 MG/2 ML INJ ONE (13:40)
[2019-05-16] MEDS: NORMAL SALINE 1000 ML 1,000 ML IV PRN ×2 (14:12→22:12)
[2019-05-16] MEDS: PROPOFOL 1,000 MG/100 ML INFUS..BTL IV PRN ×3 (14:13→22:02)
--- NOTE | 2019-05-16 14:38 | RADIOLOGY REPORT (SQ) ---
EXAM DESCRIPTION: CHEST SINGLE VIEW COMPLETED DATE/TIME: 05/16/2019 2:25 pm REASON FOR STUDY: ET TUBE PLACEMENT COMPARISON: 03/13/2018 NUMBER OF VIEWS: One view. TECHNIQUE: Single frontal radiographic view of the chest acquired. LIMITATIONS: None. FINDINGS: LUNGS AND PLEURA: Endotracheal tube is in satisfactory position. NG tube tip is well belo w the GE junction. Lung herrera are grossly clear. MEDIASTINUM AND HILAR STRUCTURES: No masses. Contour normal. HEART AND VASCULAR STRUCTURES: Heart normal in size. Normal vasculature. BONES: No acute findings. HARDWARE: None in the chest. OTHER: No other significant finding. IMPRESSION: Support lines and tubes are in satisfactory position. TECHNICAL DOCUMENTATION: JOB ID: [id number] [employer]- All Rights Reserved Reading location - IP/workstation name: [email or web address]
[2019-05-16 15:15] LABS: APPEARANCE,URINE CLOUDY; BILIRUBIN,URINE NEGATIVE (NEGATIVE); GLUCOSE, URINE NEGATIVE (NEGATIVE); KETONES,URINE 20 mg/dL (NEGATIVE); LEUKOCYTE ESTERASE,URINE LARGE (NEGATIVE); NITRITE,URINE NEGATIVE (NEGATIVE); PROTEIN,URINE 30 mg/dL (NEGATIVE); URINE SPECIFIC GRAVITY 1.013
[2019-05-16 15:17] LABS: COLOR,URINE YELLOW
[2019-05-16] MEDS ORDERED: FENTANYL CITRATE INJ/PF 100 MCG/2 ML AMPUL ONE (16:10)
[2019-05-16] MEDS: FENTANYL CITRATE INJ/PF 100 MCG/2 ML AMPUL IV PRN ×2 (16:22→20:13)
[2019-05-16] MEDS ORDERED: CEFTRIAXONE 2 GM/D5W RTU 2 GM/50 ML RTUPB IV SCH (16:30)
[2019-05-16 16:47] LABS: ARTERIAL BLOOD BASE EXCESS -4.4 mmol/L; ARTERIAL BLOOD H2CO3 0.92 mmol/L (1.05-1.35); ARTERIAL BLOOD HCO3 19.1 mmol/L (20-24); ARTERIAL BLOOD PCO2 30.7 mmHg (35-45); ARTERIAL BLOOD PH 7.41 (7.35-7.45); ARTERIAL BLOOD PO2 149.2 mmHg (80-100); ARTERIAL BLOOD TOTAL CO2 20.1 mmol/L (21-25)
[2019-05-16 16:49] LABS: ARTERIAL BLOOD FIO2 40%
--- NOTE | 2019-05-16 16:51 | Progress Note ---
Provider Note Provider Note: May 16, 2019-critical care note Called the patient room by nursing staff patient lethargic and having sonorous and guppy breathing. Upon entering room patient unable to be aroused. This need for patient as patient 18-year-old and has severe and profound autism and is typically quite livid yelling, throwing things and screaming. Sternal rub was not able to arouse patient. Upon hooking up pulse ox patient had a O2 sat of 30%. I immediately called a code. Started bagging patient with 100% O2. Gave patient Narcan 0.4 mg IV x1. Patient did perk up some from this as she was getting morphine for acute pancreatitis. Patient subsequently received 0.5 mg of Romazicon IV for reversal of IV Ativan. After this was accomplished patient became extremely irate requiring 5 people to hold her down in the bed and trying to get herself out of the bed at the same time. Patient was unmanageable and decision made after talk to patient's family to place patient in ICU, intubate patient and sedate patient so that treatment could be easier for patient. I discussed this with partners and the medical staff they agree with assessment and plan. Patient was placed in ICU and emergently intubated with a #7.5 ET tube placed 22 at the lip showed 1.5 cm across above the wilda after chest x- ray. Initial ventilator settings IMV 14 tidal volume 450 and PEEP of 5 with 40% FiO2. I am awaiting an ABG at this time. Patient is on propofol IV for sedation, she is getting PRN fentanyl 50 mics every 2 hours for pain. IV hydration with normal saline 125 mL an hour for her acute patient has a repeat lipase in the a.m. Salguero cath was placed, NG tube was placed. At this time patient is stable sedate and able to be treated appropriately for her acute pancreatitis. I spent a total of 45 minutes critical care time continue to monitor patient's heart rate, respiratory rate, O2 sats, and temperature. Time was also spent in titrating medications to appropriate effect for patient.
[2019-05-16] MEDS ORDERED: CEFTRIAXONE SODIUM 2,000 MG in DEXTROSE 5%-WATER 100 ML IV SCH (18:00)
[2019-05-16] MEDS ORDERED: PHARMACY COMMUNICATION ORDER MC NR (18:10)
[2019-05-16] MEDS ORDERED: VALPROATE SODIUM INJ/PF 500 MG/5 ML SDV IV SCH (18:45)
[2019-05-16] MEDS ORDERED: ACETAMINOPHEN 325 MG TABLET NG PRN (19:30)
[2019-05-16] MEDS ORDERED: MAG HYDROX/AL HYDROX/SIMETH SUSP 30 ML UDCUP NG PRN (19:30)
[2019-05-16] MEDS ORDERED: VALPROATE SODIUM 1,000 MG in NORMAL SALINE 100 ML IV ONE (20:00)
[2019-05-16] MEDS: DIVALPROEX SODIUM 500 MG TAB.SR.24H PO SCH (20:05)
[2019-05-16] MEDS ORDERED: ROCURONIUM BROMIDE INJ 50 MG/5 ML VIAL IV ONE (21:07)
[2019-05-16] MEDS: PANTOPRAZOLE SODIUM 40 MG VIAL IV SCH (21:22)
[2019-05-16] MEDS: ARIPIPRAZOLE 5 MG TABLET NG SCH (21:22)
[2019-05-16] MEDS: TRAZODONE HCL 50 MG TABLET NG SCH (21:23)
[2019-05-16] MEDS: PROPRANOLOL HCL 10 MG TABLET NG SCH (21:24)
[2019-05-16] MEDS: QUETIAPINE FUMARATE 100 MG TABLET NG SCH (21:24)
[2019-05-16] MEDS: QUETIAPINE FUMARATE 25 MG TABLET NG SCH (21:28)
[2019-05-16] MEDS: CHLORPROMAZINE HCL 50 MG TABLET NG SCH (22:05)
[2019-05-17] MEDS: PROPOFOL 1,000 MG/100 ML INFUS..BTL IV PRN ×6 (01:39→21:45)
[2019-05-17 03:49] LABS: HEMATOCRIT 36.1 % (36.0-47.0); HEMOGLOBIN 12.1 g/dL (12.0-15.5); MEAN CORPUSCULAR HEMOGLOBIN 31.9 pg (27.0-33.4); MEAN CORPUSCULAR HGB CONC 33.5 g/dL (32.0-36.0); MEAN CORPUSCULAR VOLUME 95 fl (80-97); PLATELET COUNT 166 10^3/uL (150-450); RED BLOOD COUNT 3.79 10^6/uL (3.72-5.28); RED CELL DISTRIBUTION WIDTH 14.4 % (11.5-14.0); WHITE BLOOD COUNT 6.7 10^3/uL (4.0-10.5)
[2019-05-17 03:57] LABS: ALBUMIN 3.3 g/dL (3.7-5.6); ALKALINE PHOSPHATASE 62 U/L (50-135); ANION GAP 11 (5-19); ASPARTATE AMINO TRANSFERASE 64 U/L (5-30); BILIRUBIN,DIRECT 0.5 mg/dL (0.0-0.4); BILIRUBIN,TOTAL 0.5 mg/dL (0.2-1.3); BLOOD UREA NITROGEN 7 mg/dL (7-20); CALCIUM 8.7 mg/dL (8.4-10.2); CARBON DIOXIDE 23 mmol/L (22-30); CHLORIDE 108 mmol/L (98-107); GLUCOSE 91 mg/dL (75-110); POTASSIUM 3.6 mmol/L (3.6-5.0); TOTAL PROTEIN 7.1 g/dL (6.3-8.2)
[2019-05-17] MEDS: NORMAL SALINE 1000 ML 1,000 ML IV PRN ×2 (05:05→15:37)
[2019-05-17] MEDS: HEPARIN SOD (PORCINE) 5,000 UNIT/ML 1 ML VIAL SUBCUT SCH ×3 (05:08→21:45)
[2019-05-17] MEDS: FENTANYL CITRATE INJ/PF 100 MCG/2 ML AMPUL IV PRN ×3 (05:08→09:48)
[2019-05-17 06:14] LABS: ARTERIAL BLOOD BASE EXCESS -2.5 mmol/L; ARTERIAL BLOOD H2CO3 0.95 mmol/L (1.05-1.35); ARTERIAL BLOOD HCO3 20.9 mmol/L (20-24); ARTERIAL BLOOD PCO2 31.5 mmHg (35-45); ARTERIAL BLOOD PH 7.44 (7.35-7.45); ARTERIAL BLOOD PO2 104.2 mmHg (80-100); ARTERIAL BLOOD TOTAL CO2 21.9 mmol/L (21-25)
[2019-05-17 06:17] LABS: ARTERIAL BLOOD FIO2 21%
[2019-05-17] MEDS: QUETIAPINE FUMARATE 25 MG TABLET NG SCH ×2 (07:40→21:47)
[2019-05-17 08:06] LABS: ARTERIAL BLOOD BASE EXCESS -2.4 mmol/L; ARTERIAL BLOOD H2CO3 1.04 mmol/L (1.05-1.35); ARTERIAL BLOOD HCO3 21.6 mmol/L (20-24); ARTERIAL BLOOD O2 SATURATION 95.1 % (94-98); ARTERIAL BLOOD PCO2 34.6 mmHg (35-45); ARTERIAL BLOOD PH 7.41 (7.35-7.45); ARTERIAL BLOOD PO2 73.5 mmHg (80-100); ARTERIAL BLOOD TOTAL CO2 22.7 mmol/L (21-25)
[2019-05-17 08:07] LABS: ARTERIAL BLOOD FIO2 ROOM AIR
[2019-05-17] MEDS ORDERED: ALBUTEROL SULFATE 0.083% NEB 2.5 MG/3 ML AMPUL NEB PRN (08:14)
--- NOTE | 2019-05-17 08:21 | RADIOLOGY REPORT (SQ) ---
EXAM DESCRIPTION: CHEST SINGLE VIEW COMPLETED DATE/TIME: 05/17/2019 8:02 am REASON FOR STUDY: resp. distress COMPARISON: 05/17/2019, 05/16/2019 EXAM PARAMETERS: NUMBER OF VIEWS: One view. TECHNIQUE: Single frontal radiographic view of the chest acquired. RADIATION DOSE: NA LIMITATIONS: None. FINDINGS: LUNGS AND PLEURA: Low lung volumes without focal consolidation, pleural effusion or pneumo thorax. MEDIASTINUM AND HILAR STRUCTURES: No masses. Contour normal. HEART AND VASCULAR STRUCTURES: Heart normal in size. Normal vasculature. BONES: No acute findings. HARDWARE: Endotracheal tube tip overlies midthoracic trachea. Enteric tube tip below diaphragm but e xcluded by collimation. OTHER: No other significant finding. IMPRESSION: Low lung volumes without evidence of new cardiopulmonary process. Satisfactory lines and tubes as above. TECHNICAL DOCUMENTATION: JOB ID: [id number] [employer]- All Rights Reserved Reading location - IP/workstation name: [email or web address]
[2019-05-17] MEDS: IPRATROPIUM/ALBUTEROL 0.5-2.5 MG/3 ML AMPUL NEB SCH ×2 (08:22→20:07)
--- NOTE | 2019-05-17 08:26 | RADIOLOGY REPORT (SQ) ---
EXAM DESCRIPTION: CHEST SINGLE VIEW COMPLETED DATE/TIME: 05/17/2019 6:21 am REASON FOR STUDY: resp failure COMPARISON: 05/16/2019 EXAM PARAMETERS: NUMBER OF VIEWS: One view. TECHNIQUE: Single frontal radiographic view of the chest acquired. RADIATION DOSE: NA LIMITATIONS: None. FINDINGS: LUNGS AND PLEURA: Low lung volumes without new airspace disease, pleural effusion or pneum othorax. MEDIASTINUM AND HILAR STRUCTURES: No masses. Contour normal. HEART AND VASCULAR STRUCTURES: Heart normal in size. Normal vasculature. BONES: No acute findings. HARDWARE: Endotracheal tube tip overlies midthoracic trachea. Enteric tube tip overlies gastric body . OTHER: No other significant finding. IMPRESSION: Low lung volumes without evidence of new cardiopulmonary process. Satisfactory lines and tubes as above. TECHNICAL DOCUMENTATION: JOB ID: [id number] [employer]- All Rights Reserved Reading location - IP/workstation name: [email or web address]
[2019-05-17] MEDS ORDERED: VANCOMYCIN HCL 0 MG in DEXTROSE 5%-WATER 250 ML IV NR (09:30)
--- NOTE | 2019-05-17 09:54 | RADIOLOGY REPORT (SQ) ---
EXAM DESCRIPTION: CT CHEST WITH; CT ABD/PELVIS WITH IV ONLY COMPLETED DATE/TIME: 05/17/2019 9:35 am REASON FOR STUDY: ARDS; [place] Pancreatitis/ABdominal pain COMPARISON: CT abdomen pelvis, 05/14/2019, chest radiographs, 05/17/2019 CONTRAST TYPE AND DOSE: contrast/concentration: Isovue 350.00 mg/ml; Total Contrast Delivered: 100.0 ml; Total Saline Delivered: 45.0 ml RENAL FUNCTION: GFR > 60. TECHNIQUE: CT scan of the chest performed using helical scanning technique with dynamic intravenous contrast injection. Images reviewed with lung, soft tissue and bone windows. Reconstructed coronal a nd sagittal MPR images reviewed. All images stored on PACS. CT scan of the abdomen and pelvis performed with intravenous and without oral contrastusing helical s loreta technique with dynamic intravenous contrast injection. Images reviewed with lung, soft tissu e and bone windows. Reconstructed coronal and sagittal MPR images reviewed. Delayed images for eval uation of the urinary system also acquired and evaluated. All images stored on PACS. All CT scanners at this facility use dose modulation, iterative reconstruction, and/or weight based d osing when appropriate to reduce radiation dose to as low as reasonably achievable (ALARA). [facility]: Dose Right [facility]: CareDose [facility]: Dose Right [facility]: Teradose 4D [facility]: [employer] Technologies RADIATION DOSE: CT Rad equipment meets quality standard of care and radiation dose reduction techniq ues were employed. CTDIvol: 13.6 - 14.2 mGy. DLP: 2205 mGy-cm. . LIMITATIONS: None. FINDINGS: CHEST: LUNGS AND PLEURA: There is dense bibasilar consolidation and/or atelectasis of the bilateral lower lo bes, with scattered clustered pulmonary nodules elsewhere, for example the lingula. HILAR AND MEDIASTINAL STRUCTURES: No identified masses or abnormal nodes. HEART AND VASCULAR STRUCTURES: No aneurysm or dissection. No central pulmonary emboli. No pericardi al effusion. HARDWARE: None. THYROID AND OTHER SOFT TISSUES: No masses. No adenopathy. BONES: No significant finding. OTHER: Endotracheal tube is present with tip within the mid esophagus. ABDOMEN AND PELVIS: LIVER: Normal size. No masses. No dilated ducts. SPLEEN: Normal size. No focal lesions. PANCREAS: There is redemonstrated inflammatory fat stranding about the pancreas, not significantly ch anged compared to prior examination dated 05/14/2019 GALLBLADDER: No identified stones by CT criteria. No inflammatory changes to suggest cholecystitis. ADRENAL GLANDS: No significant masses or asymmetry. RIGHT KIDNEY AND URETER: No solid masses. No significant calcification. No hydronephrosis or hydroure ter. LEFT KIDNEY AND URETER: No solid masses. No significant calcification. No hydronephrosis or hydrouret er. AORTA AND VESSELS: No aneurysm. No dissection. Renal arteries, SMA, celiac without stenosis. RETROPERITONEUM: No retroperitoneal adenopathy, hemorrhage or masses. BOWEL AND PERITONEAL CAVITY: No masses or inflammatory changes. Minimal peritoneal free fluid. APPENDIX: Normal. ABDOMINAL WALL: No masses. No hernias. PELVIS: Small volume free fluid in the low pelvis. The bladder is decompressed by a Salguero catheter. BONES: No significant or acute findings. OTHER: No other significant finding. IMPRESSION: 1. There is dense bibasilar consolidation and/or atelectasis of the bilateral lower lob es, with scattered clustered pulmonary nodules elsewhere, for example in the lingula. Findings are m ost consistent with multifocal infection or aspiration, however there is no appearance characteristic for ARDS, particularly no evidence of pulmonary edema or alveolar pattern airspace disease. 2. Redemonstrated inflammatory fat stranding about the pancreas, not significant change compared to prior examination. Findings are again consistent with pancreatitis and there is no evidence of focal fluid collection or other complication. 3. Small volume fluid in the abdomen and pelvis, likely reactive. TECHNICAL DOCUMENTATION: JOB ID: [id number] Quality ID # [id number]: Final reports with documentation of one or more dose reduction techniques (e.g., Au tomated exposure control, adjustment of the mA and/or kV according to patient size, use of iterative reconstruction technique) 2010 [employer]- All Rights Reserved Reading location - IP/workstation name: [email or web address]
[2019-05-17] MEDS ORDERED: VALPROATE SODIUM INJ/PF 500 MG/5 ML SDV IV SCH (10:00)
[2019-05-17] MEDS ORDERED: ROCURONIUM BROMIDE INJ 50 MG/5 ML VIAL IV ONE (10:05)
[2019-05-17] MEDS: PANTOPRAZOLE SODIUM 40 MG VIAL IV SCH ×2 (10:29→21:46)
[2019-05-17] MEDS: DOCUSATE SODIUM 100 MG/10 ML UDC NG SCH ×2 (10:29→17:18)
[2019-05-17] MEDS: PROPRANOLOL HCL 10 MG TABLET NG SCH ×2 (10:30→21:47)
[2019-05-17] MEDS: CHLORPROMAZINE HCL 50 MG TABLET NG SCH ×2 (10:30→21:48)
[2019-05-17] MEDS: TRIHEXYPHENIDYL HCL 5 MG TABLET NG SCH (10:30)
[2019-05-17] MEDS: MIDAZOLAM HCL 50 MG/100 ML RTUINJ IV PRN ×3 (10:30→20:05)
[2019-05-17] MEDS: VALPROATE SODIUM 500 MG in NORMAL SALINE 100 ML IV SCH (10:31)
[2019-05-17] MEDS ORDERED: HYDRALAZINE HCL INJ/PF 20 MG/1 ML SDV ONE (10:53)
[2019-05-17 11:16] LABS: ARTERIAL BLOOD BASE EXCESS -2.3 mmol/L; ARTERIAL BLOOD H2CO3 0.62 mmol/L (1.05-1.35); ARTERIAL BLOOD O2 SATURATION 98.5 % (94-98); ARTERIAL BLOOD PH 7.56 (7.35-7.45); ARTERIAL BLOOD PO2 104.9 mmHg (80-100); ARTERIAL BLOOD TOTAL CO2 18.6 mmol/L (21-25)
[2019-05-17 11:19] LABS: ARTERIAL BLOOD FIO2 45%
[2019-05-17 11:20] LABS: ARTERIAL BLOOD PCO2 20.7 mmHg (35-45)
[2019-05-17] MEDS: PIPERACILLIN SODIUM/TAZOBACTAM 3.375 GM in NORMAL SALINE 100 ML IV SCH ×2 (11:42→17:18)
[2019-05-17] MEDS: VANCOMYCIN HCL 1,500 MG in DEXTROSE 5%-WATER 250 ML IV SCH ×2 (12:14→18:00)
[2019-05-17 14:21] LABS: ARTERIAL BLOOD BASE EXCESS -4.1 mmol/L; ARTERIAL BLOOD FIO2 45%; ARTERIAL BLOOD H2CO3 0.82 mmol/L (1.05-1.35); ARTERIAL BLOOD HCO3 18.8 mmol/L (20-24); ARTERIAL BLOOD O2 SATURATION 99.1 % (94-98); ARTERIAL BLOOD PCO2 27.3 mmHg (35-45); ARTERIAL BLOOD PH 7.46 (7.35-7.45); ARTERIAL BLOOD PO2 149.6 mmHg (80-100); ARTERIAL BLOOD TOTAL CO2 19.6 mmol/L (21-25)
--- NOTE | 2019-05-17 15:15 | PDOC PROGRESS REPORT ---
Subjective Progress Note for:: 05/17/19 - Critical care note Subjective:: May 16, 2019-unable to assess secondary to autism May 17, 2019-intubated sedated Reason For Visit: ACUTE PANCREATITIS Physical Exam Vital Signs: Temp Pulse Resp BP Pulse Ox 95.7 F L 95 H 16 120/73 98 05/17/19 14:00 05/17/19 14:00 05/17/19 14:00 05/17/19 14:00 05/17/19 14:00 Intake & Output 05/16/19 05/17/19 05/18/19 06:59 06:59 06:59 Intake Total 1183 2507 280 Output Total 985 925 Balance 1183 1522 -645 Weight 35.4 kg 99.1 kg 99.1 kg General appearance: PRESENT: no acute distress, well-developed, well-nourished Head exam: PRESENT: atraumatic, normocephalic Eye exam: PRESENT: conjunctiva pink, EOMI, PERRLA. ABSENT: scleral icterus Neck exam: ABSENT: carotid bruit, JVD, lymphadenopathy, thyromegaly Respiratory exam: PRESENT: clear to auscultation marisela, other - On ventilator. ABSENT: rales, rhonchi, wheezes Cardiovascular exam: PRESENT: RRR. ABSENT: diastolic murmur, rubs, systolic murmur Pulses: PRESENT: normal dorsalis pedis pul Vascular exam: PRESENT: normal capillary refill GI/Abdominal exam: PRESENT: normal bowel sounds, soft. ABSENT: distended, guarding, mass, organolmegaly, rebound, tenderness Extremities exam: PRESENT: full ROM. ABSENT: calf tenderness, clubbing, pedal edema Neurological exam: PRESENT: other - Unable to assess secondary to sedated and intubated Psychiatric exam: PRESENT: other - Unable to assess secondary to sedated and intubated Skin exam: PRESENT: dry, intact, warm. ABSENT: cyanosis, rash Results Laboratory Results: 05/17/19 03:35 05/17/19 03:35 05/16/19 05/16/19 05/17/19 14:45 16:32 03:35 WBC 6.7 RBC 3.79 Hgb 12.1 Hct 36.1 MCV 95 MCH 31.9 MCHC 33.5 RDW 14.4 H Plt Count 166 Carbonic Acid 0.92 L HCO3/H2CO3 Ratio 20:1 ABG pH 7.41 ABG pCO2 30.7 L ABG pO2 149.2 H ABG HCO3 19.1 L ABG O2 Saturation 99.0 H ABG Base Excess -4.4 FiO2 40% Sodium Potassium Chloride Carbon Dioxide Anion Gap BUN Creatinine Est GFR ( Amer) Est GFR (Non-Af Amer) Glucose Calcium Magnesium Total Bilirubin AST Alkaline Phosphatase Total Protein Albumin Lipase Urine Color YELLOW Urine Appearance CLOUDY Urine pH 5.0 Ur Specific [place] 1.013 Urine Protein 30 H Urine Glucose (UA) NEGATIVE Urine Ketones 20 H Urine Blood SMALL H Urine Nitrite NEGATIVE Ur Leukocyte Esterase LARGE H Urine WBC (Auto) >182 Urine RBC (Auto) 6 05/17/19 05/17/19 05/17/19 03:35 06:07 07:45 WBC RBC Hgb Hct MCV MCH MCHC RDW Plt Count Carbonic Acid 0.95 L 1.04 L HCO3/H2CO3 Ratio 22:1 20:1 ABG pH 7.44 7.41 ABG pCO2 31.5 L 34.6 L ABG pO2 104.2 H 73.5 L ABG HCO3 20.9 21.6 ABG O2 Saturation 98.0 95.1 ABG Base Excess -2.5 -2.4 FiO2 21% ROOM AIR Sodium 142.2 Potassium 3.6 Chloride 108 H Carbon Dioxide 23 Anion Gap 11 BUN 7 Creatinine 0.70 Est GFR ( Amer) > 60 Est GFR (Non-Af Amer) > 60 Glucose 91 Calcium 8.7 Magnesium 1.9 Total Bilirubin 0.5 AST 64 H Alkaline Phosphatase 62 Total Protein 7.1 Albumin 3.3 L Lipase 908.7 H Urine Color Urine Appearance Urine pH Ur Specific [place] Urine Protein Urine Glucose (UA) Urine Ketones Urine Blood Urine Nitrite Ur Leukocyte Esterase Urine WBC (Auto) Urine RBC (Auto) 05/17/19 05/17/19 05/17/19 11:07 13:28 13:41 WBC RBC Hgb Hct MCV MCH MCHC RDW Plt Count Carbonic Acid 0.62 L Cancelled 0.82 L HCO3/H2CO3 Ratio 29:1 Cancelled 22:1 ABG pH 7.56 H Cancelled 7.46 H ABG pCO2 20.7 L* Cancelled 27.3 L ABG pO2 104.9 H Cancelled 149.6 H ABG HCO3 18.0 L Cancelled 18.8 L ABG O2 Saturation 98.5 H Cancelled 99.1 H ABG Base Excess -2.3 Cancelled -4.1 FiO2 45% Cancelled 45% Sodium Potassium Chloride Carbon Dioxide Anion Gap BUN Creatinine Est GFR ( Amer) Est GFR (Non-Af Amer) Glucose Calcium Magnesium Total Bilirubin AST Alkaline Phosphatase Total Protein Albumin Lipase Urine Color Urine Appearance Urine pH Ur Specific [place] Urine Protein Urine Glucose (UA) Urine Ketones Urine Blood Urine Nitrite Ur Leukocyte Esterase Urine WBC (Auto) Urine RBC (Auto) Impressions: Abdomen/Pelvis CT 05/17/19 00:00 IMPRESSION: 1. There is dense bibasilar consolidation and/or atelectasis of t he bilateral lower lobes, with scattered clustered pulmonary nodules elsewhere, for example in the lingula. Findings are most consistent with multifocal infection or aspiration, however there is no appearance characteristic for ARDS, particularly no evidence of pulmonary edema or alveolar pattern airspace disease. 2. Redemonstrated inflammatory fat stranding about the pancreas, not significant change compared to prior examination. Findings are again consistent with pancreatitis and there is no evidence of focal fluid collection or other complication. 3. Small volume fluid in the abdomen and pelvis, likely reactive. Chest CT 05/17/19 00:00 IMPRESSION: 1. There is dense bibasilar consolidation and/or atelectasis of the bilateral lower lobes, with scattered clustered pulmonary nodules elsewhere, for example in the lingula. Findings are most consistent with multifocal infection or aspiration, however there is no appearance characteristic for ARDS, particularly no evidence of pulmonary edema or alveolar pattern airspace disease. 2. Redemonstrated inflammatory fat stranding about the pancreas, not significant change compared to prior examination. Findings are again consistent with pancreatitis and there is no evidence of focal fluid collection or other complication. 3. Small volume fluid in the abdomen and pelvis, likely reactive. Chest X-Ray 05/17/19 07:43 IMPRESSION: Low lung volumes without evidence of new cardiopulmonary process. Satisfactory lines and tubes as above. Assessment and Plan - Diagnosis (1) Pancreatitis, acute Is this a current diagnosis for this admission?: Yes Plan: Patient is admitted to the medical floor. Lipase is elevated to 1882. Check lipid panel with a.m. lab work. Currently in n.p.o. status. Antiemetics and analgesics as needed. Have discussed with nursing, patient to receive 1 L normal saline bolus following her next pain medication administration (administer so as continuous IV fluids have caused the patient to have severe anxiety/agitation; this way her fluid boluses will hopefully be done by the time she wakes following morphine). She did receive 2 L normal saline by the ED provider yesterday. We will need to monitor closely for evidence of dehydration while getting intermittent fluid boluses. Advance to clear liquids as tolerated. May 16, 2019-awaiting repeat lipase. Continue n.p.o. status. Continue normal saline at 100 mL an hour. Once I have a review of her most recent lipase I will make determination on advancing diet at that time. May 17, 2019-repeat lipase done at 900 today. Continue n.p.o. status continue IV hydration. Patient remains on fentanyl 50 mcg every 2 hours as needed pain. (2) Abdominal pain Is this a current diagnosis for this admission?: Yes Plan: Secondary to #1 Analgesics as needed. May 16, 2019-continue PRN morphine. May 17, 2019-morphine was DC'd. Patient placed on fentanyl 50 mcg every 2 hours as needed continue to give as needed (3) Encephalopathy Is this a current diagnosis for this admission?: Yes Plan: Complicated by severe autism Valproic acid 67.1 Continue home medication regiment. IV Ativan as needed Spoke with mental health, recommended as needed Thorazine. May 16, 2019-unable to assess secondary to severe autism. Continue home medications as well as as needed Ativan for agitation. We will continue Thorazine as needed as well. May 17, 2019-unable to assess as patient remains intubated and sedated (4) Autism Is this a current diagnosis for this admission?: Yes Plan: Home medication regimen is continued. Family members are encouraged to stay with patient. Sitter for safety. May 16, 2019-continue home medications, sitter at bedside. May 17, 2019-continue home meds once patient is extubated. At this time will continue Depakote but change to IV form for behavior for when patient is extubated. (5) UTI (urinary tract infection) Is this a current diagnosis for this admission?: Yes Plan: May 16, 2019-urine culture showing gram-negative rods. At this time we will start Rocephin 1 g IV daily await cultures returned with sensitivity. May 17, 2019-Rocephin was DC'd when patient removed ICU I placed her on Zosyn per pharmacy dosing await cultures for offending organism. (6) Acute respiratory failure Qualifiers: Respiratory failure complication: hypoxia and hypercapnia Qualified Code(s): J96.01 - Acute respiratory failure with hypoxia; J96.02 - Acute respiratory failure with hypercapnia Is this a current diagnosis for this admission?: Yes Plan: May 17, 2019-patient moved emergently to the ICU yesterday after experiencing respiratory failure secondary to narcotics and benzodiazepines for her acute pancreatitis. Patient was given Narcan and flumazenil on the floor which caused her to wake and upset her autism. Patient became very violent and uncontrollable at that time. Was taking 5 staff members to keep patient in bed and from crawling over the rails of the bed. Patient was moved to ICU and placed on the ventilator. She was stabilized yesterday. This morning when walking into the ICU patient was found to be showing desaturation on current ventilator settings with SIMV of 14, tidal volume 400, FiO2 21% and 5 of PEEP. Stat portable chest was obtained showed no acute findings although did look suspicious for an aspiration, stat ABG showed that patient was having hypoxia with a low PCO2, and patient continued to be agitated thrashing about in the bed. At that time I gave patient 100 mg of rocuronium to increase compliance with ventilator. This did not help initially we had to make various adjustments to ventilator. Overall patient required pressor rate of 24, tidal volume of 450, PEEP of 12, FiO2 100% and finally showed the ability to hold her saturation of 96-97%. Patient was also started on Versed drip to help with sedation. Patient remains on dipper Van at this time but was maxed out at 50 m[address] per [address]. Stat CT of the chest, abdomen and pelvis was obtained. CT showed aspiration possible bilateral infiltrate suggestive of pneumonia no new findings on abdomen pelvis other than continued inflammation of the pancreas. Patient was placed on IV vancomycin for this aspiration pneumonia as well as Zosyn. Patient much more couple this time we have been titrating down her FiO2, rate and PEEP support and have it almost to baseline at this point. I spent a total of 1 hour today in critical care time initially monitoring may change plan of care. On monitor heart rate, blood pressure, respiratory rate, laboratory database, chest x-ray, CT of abdomen pelvis. - Time Time Spent with patient: 35 or more minutes Total Critical Time (Minutes): 60 - Inpatient Certification Based on my medical assessment, after consideration of the patient's comorbidities, presenting symptoms, or acuity I expect that the services needed warrant INPATIENT care.: Yes I certify that my determination is in accordance with my understanding of Medicare's requirements for reasonable and necessary INPATIENT services [42 CFR 412.3e].: Yes Medical Necessity: Other - On ventilator, IV sedation, IV fluids, IV antibiotics
[2019-05-17] MEDS: NORETHINDRONE E ESTRADIOL IRON PO SCH (17:13)
[2019-05-17] MEDS: HYDRALAZINE HCL INJ/PF 20 MG/1 ML SDV IV PRN (19:06)
[2019-05-17] MEDS: TRAZODONE HCL 50 MG TABLET NG SCH (21:46)
[2019-05-17] MEDS: QUETIAPINE FUMARATE 100 MG TABLET NG SCH (21:46)
[2019-05-17] MEDS: ARIPIPRAZOLE 5 MG TABLET NG SCH (21:46)
[2019-05-18] MEDS: PIPERACILLIN SODIUM/TAZOBACTAM 3.375 GM in NORMAL SALINE 100 ML IV SCH ×4 (01:00→17:38)
[2019-05-18] MEDS: NORMAL SALINE 1000 ML 1,000 ML IV PRN (01:00)
[2019-05-18] MEDS: PROPOFOL 1,000 MG/100 ML INFUS..BTL IV PRN ×4 (01:01→11:15)
[2019-05-18] MEDS: MIDAZOLAM HCL 50 MG/100 ML RTUINJ IV PRN ×4 (01:02→18:51)
[2019-05-18] MEDS: VANCOMYCIN HCL 1,500 MG in DEXTROSE 5%-WATER 250 ML IV SCH ×2 (03:08→12:15)
[2019-05-18 04:29] LABS: HEMATOCRIT 30.8 % (36.0-47.0); HEMOGLOBIN 10.5 g/dL (12.0-15.5); MEAN CORPUSCULAR HEMOGLOBIN 32.5 pg (27.0-33.4); MEAN CORPUSCULAR VOLUME 96 fl (80-97); PLATELET COUNT 153 10^3/uL (150-450); RED BLOOD COUNT 3.23 10^6/uL (3.72-5.28); RED CELL DISTRIBUTION WIDTH 14.9 % (11.5-14.0); WHITE BLOOD COUNT 11.1 10^3/uL (4.0-10.5)
[2019-05-18 04:43] LABS: ALBUMIN 2.5 g/dL (3.7-5.6); ALKALINE PHOSPHATASE 50 U/L (50-135); ANION GAP 10 (5-19); ASPARTATE AMINO TRANSFERASE 24 U/L (5-30); BILIRUBIN,DIRECT 0.5 mg/dL (0.0-0.4); BILIRUBIN,TOTAL 0.6 mg/dL (0.2-1.3); BLOOD UREA NITROGEN 4 mg/dL (7-20); CALCIUM 7.5 mg/dL (8.4-10.2); CARBON DIOXIDE 19 mmol/L (22-30); CHLORIDE 109 mmol/L (98-107); GLUCOSE 139 mg/dL (75-110); PHOSPHORUS 5.4 mg/dL (2.5-4.5); POTASSIUM 3.7 mmol/L (3.6-5.0); TOTAL PROTEIN 5.7 g/dL (6.3-8.2)
[2019-05-18 06:13] LABS: ARTERIAL BLOOD BASE EXCESS -2.6 mmol/L; ARTERIAL BLOOD FIO2 35%; ARTERIAL BLOOD H2CO3 0.98 mmol/L (1.05-1.35); ARTERIAL BLOOD HCO3 21.1 mmol/L (20-24); ARTERIAL BLOOD PCO2 32.4 mmHg (35-45); ARTERIAL BLOOD PH 7.43 (7.35-7.45); ARTERIAL BLOOD PO2 150.9 mmHg (80-100); ARTERIAL BLOOD TOTAL CO2 22.1 mmol/L (21-25)
[2019-05-18] MEDS: HEPARIN SOD (PORCINE) 5,000 UNIT/ML 1 ML VIAL SUBCUT SCH ×3 (06:30→21:46)
[2019-05-18] MEDS: IPRATROPIUM/ALBUTEROL 0.5-2.5 MG/3 ML AMPUL NEB SCH ×2 (07:48→19:42)
[2019-05-18] MEDS ORDERED: DEXTROSE 50%-WATER 25 GM/50 ML DISP.SYRIN IV PRN ×2 (07:48)
[2019-05-18] MEDS ORDERED: DEXTROSE 40% GEL 15 GM TUBE PO PRN ×2 (07:48)
[2019-05-18] MEDS ORDERED: GLUCAGON,HUMAN RECOMB 1 MG INJ IM PRN (07:48)
[2019-05-18] MEDS ORDERED: NORMAL SALINE 1000 ML 1,000 ML IV PRN (07:49)
[2019-05-18] MEDS: QUETIAPINE FUMARATE 25 MG TABLET NG SCH ×2 (08:14→22:14)
[2019-05-18] MEDS ORDERED: NORMAL SALINE 1000 ML 1,000 ML IV ONE (08:30)
--- NOTE | 2019-05-18 08:54 | RADIOLOGY REPORT (SQ) ---
EXAM DESCRIPTION: CHEST SINGLE VIEW COMPLETED DATE/TIME: 05/18/2019 6:34 am REASON FOR STUDY: intubation COMPARISON: Chest films 05/16/2019, 05/17/2019, 05/18/2019 CT chest 05/17/2019 EXAM PARAMETERS: NUMBER OF VIEWS: One view. TECHNIQUE: Single frontal radiographic view of the chest acquired. RADIATION DOSE: NA LIMITATIONS: None. FINDINGS: LUNGS AND PLEURA: Persistent patchy consolidation in the medial right and left lung bases, atelectasis versus pneumonia. No pleural effusions. No pneumothorax. MEDIASTINUM AND HILAR STRUCTURES: No masses. Contour normal. HEART AND VASCULAR STRUCTURES: Heart normal in size. Normal vasculature. BONES: No acute findings. HARDWARE: Endotracheal tube tip 4 cm above the wilda. Nasogastric tube tip and side port in the sto mach OTHER: No other significant finding. IMPRESSION: Endotracheal and nasogastric tubes in good positioning. Patchy consolidation persists in the medial right and left lung bases. TECHNICAL DOCUMENTATION: JOB ID: [id number] [employer]- All Rights Reserved Reading location - IP/workstation name: [email or web address]
[2019-05-18] MEDS: INSULIN REG, HUMAN 100 UNIT/ML 3 ML VIAL (PYX) SUBCUT SCH ×3 (09:10→17:29)
[2019-05-18] MEDS: TRIHEXYPHENIDYL HCL 5 MG TABLET NG SCH (10:06)
[2019-05-18] MEDS: DOCUSATE SODIUM 100 MG/10 ML UDC NG SCH ×2 (10:06→17:36)
[2019-05-18] MEDS: CHLORPROMAZINE HCL 50 MG TABLET NG SCH ×2 (10:07→21:45)
[2019-05-18] MEDS: NORETHINDRONE E ESTRADIOL IRON PO SCH (10:07)
[2019-05-18] MEDS: PROPRANOLOL HCL 10 MG TABLET NG SCH ×2 (10:07→21:47)
[2019-05-18] MEDS: VALPROATE SODIUM 500 MG in NORMAL SALINE 100 ML IV SCH (11:08)
[2019-05-18] MEDS: PANTOPRAZOLE SODIUM 40 MG VIAL IV SCH ×2 (11:13→21:46)
[2019-05-18 12:10] LABS: VANCOMYCIN,TROUGH 41.6 ug/mL (5.0-20.0)
[2019-05-18] MEDS: HYDRALAZINE HCL INJ/PF 20 MG/1 ML SDV IV PRN ×2 (12:21→17:37)
--- NOTE | 2019-05-18 15:27 | RADIOLOGY REPORT (SQ) ---
EXAM DESCRIPTION: INTRO/GI TUBE W/FLUORO; INTRO LONG GI TUBE (MILLAB) COMPLETED DATE/TIME: 05/18/2019 2:43 pm REASON FOR STUDY: tube feeding, DOBHOFF INSERTION; DOBHOFF INSERTION FOR TUBE FEEDINGS COMPARISON: AP chest 05/18/2019 TECHNIQUE: Live fluoroscopic guidance. RADIATION DOSE: 35 seconds Two images saved to PACS. LIMITATIONS: None. FINDINGS: Study was performed portably in the ICU with C-arm. A NJ-tube was advanced through the left nostril through the stomach and ending in the 3rd portion of the duodenum. Approximately 12 mL of non ionic contrast was injected through the catheter to confirm placement. A fluoroscopic spot film was saved to PACs demonstrating catheter tip within the 3rd to 4 th portion of the duodenum. Tube was taped to the patient's left nostril. IMPRESSION: Successful fluoroscopic guided placement of a NJ tube. COMMENT: Quality ID 145: Final reports for procedures using fluoroscopy that document radiation exp osure indices, or exposure time and number of fluorographic images (if radiation exposure indices are not available) TECHNICAL DOCUMENTATION: JOBD ID: [id number] [employer]- All Rights Reserved Reading location - IP/workstation name: [email or web address]
--- NOTE | 2019-05-18 15:27 | RADIOLOGY REPORT (SQ) ---
EXAM DESCRIPTION: INTRO/GI TUBE W/FLUORO; INTRO LONG GI TUBE (MILLAB) COMPLETED DATE/TIME: 05/18/2019 2:43 pm REASON FOR STUDY: tube feeding, DOBHOFF INSERTION; DOBHOFF INSERTION FOR TUBE FEEDINGS COMPARISON: AP chest 05/18/2019 TECHNIQUE: Live fluoroscopic guidance. RADIATION DOSE: 35 seconds Two images saved to PACS. LIMITATIONS: None. FINDINGS: Study was performed portably in the ICU with C-arm. A NJ-tube was advanced through the left nostril through the stomach and ending in the 3rd portion of the duodenum. Approximately 12 mL of non ionic contrast was injected through the catheter to confirm placement. A fluoroscopic spot film was saved to PACs demonstrating catheter tip within the 3rd to 4 th portion of the duodenum. Tube was taped to the patient's left nostril. IMPRESSION: Successful fluoroscopic guided placement of a NJ tube. COMMENT: Quality ID 145: Final reports for procedures using fluoroscopy that document radiation exp osure indices, or exposure time and number of fluorographic images (if radiation exposure indices are not available) TECHNICAL DOCUMENTATION: JOBD ID: [id number] [employer] All Rights Reserved Reading location - IP/workstation name: [email or web address]
[2019-05-18] MEDS: POLYMYXIN B SULFATE/TMP OPH SOLN 10 ML OD SCH ×3 (16:59→21:46)
[2019-05-18] MEDS: FENTANYL CITRATE INJ/PF 100 MCG/2 ML AMPUL IV PRN (17:37)
[2019-05-18] MEDS: TRAZODONE HCL 50 MG TABLET NG SCH (21:46)
[2019-05-18] MEDS: ARIPIPRAZOLE 5 MG TABLET NG SCH (21:47)
[2019-05-18] MEDS: QUETIAPINE FUMARATE 100 MG TABLET NG SCH (21:47)
[2019-05-19] MEDS: PIPERACILLIN SODIUM/TAZOBACTAM 3.375 GM in NORMAL SALINE 100 ML IV SCH ×2 (00:13→05:25)
[2019-05-19] MEDS: POLYMYXIN B SULFATE/TMP OPH SOLN 10 ML OD SCH ×8 (00:13→21:24)
[2019-05-19] MEDS: INSULIN REG, HUMAN 100 UNIT/ML 3 ML VIAL (PYX) SUBCUT SCH ×4 (00:14→17:12)
[2019-05-19] MEDS ORDERED: LEVALBUTEROL HCL NEB 0.63 MG/3 ML AMPUL NEB PRN (04:50)
[2019-05-19] MEDS ORDERED: PROPRANOLOL HCL INJ/PF 1 MG/1 ML SDV IV ONE (05:00)
[2019-05-19] MEDS: HEPARIN SOD (PORCINE) 5,000 UNIT/ML 1 ML VIAL SUBCUT SCH ×3 (05:27→21:23)
[2019-05-19] MEDS: MIDAZOLAM HCL 50 MG/100 ML RTUINJ IV PRN ×4 (05:27→21:25)
[2019-05-19 05:40] LABS: HEMATOCRIT 31.5 % (36.0-47.0); HEMOGLOBIN 10.7 g/dL (12.0-15.5); MEAN CORPUSCULAR HEMOGLOBIN 32.6 pg (27.0-33.4); MEAN CORPUSCULAR HGB CONC 33.8 g/dL (32.0-36.0); MEAN CORPUSCULAR VOLUME 97 fl (80-97); PLATELET COUNT 165 10^3/uL (150-450); RED BLOOD COUNT 3.27 10^6/uL (3.72-5.28); RED CELL DISTRIBUTION WIDTH 15.3 % (11.5-14.0); WHITE BLOOD COUNT 10.8 10^3/uL (4.0-10.5)
[2019-05-19 05:50] LABS: ANION GAP 9 (5-19); BLOOD UREA NITROGEN 10 mg/dL (7-20); CALCIUM 7.6 mg/dL (8.4-10.2); CARBON DIOXIDE 19 mmol/L (22-30); CHLORIDE 115 mmol/L (98-107); GLUCOSE 133 mg/dL (75-110)
[2019-05-19 06:30] LABS: ARTERIAL BLOOD BASE EXCESS -5.3 mmol/L; ARTERIAL BLOOD FIO2 25%; ARTERIAL BLOOD H2CO3 1.09 mmol/L (1.05-1.35); ARTERIAL BLOOD HCO3 19.7 mmol/L (20-24); ARTERIAL BLOOD O2 SATURATION 97.9 % (94-98); ARTERIAL BLOOD PCO2 36.3 mmHg (35-45); ARTERIAL BLOOD PH 7.35 (7.35-7.45); ARTERIAL BLOOD PO2 110.7 mmHg (80-100); ARTERIAL BLOOD TOTAL CO2 20.8 mmol/L (21-25)
[2019-05-19] MEDS ORDERED: PROPRANOLOL HCL 40 MG TABLET PO ONE (06:45)
[2019-05-19] MEDS ORDERED: METOPROLOL TARTRATE PF/INJ 5 MG/5 ML SDV IV PRN (06:49)
[2019-05-19 06:51] LABS: ABSOLUTE LYMPHOCYTES# (MANUAL) 2.4 10^3/uL (0.5-4.7); ABSOLUTE MONOCYTES # (MANUAL) 0.4 10^3/uL (0.1-1.4); ANISOCYTOSIS SLIGHT; BAND NEUTROPHILS % (MANUAL) 7 % (3-5); BASOPHILS % (MANUAL) 0 % (0-2); EOSINOPHILS % (MANUAL) 0 % (0-6); LYMPHOCYTES % (MANUAL) 22 % (13-45); MONOCYTES % (MANUAL) 4 % (3-13); SEGMENTED NEUTROPHILS % (MAN) 67 % (42-78); TOTAL CELLS COUNTED 100
[2019-05-19 06:52] LABS: PLATELET COMMENT ADEQUATE
[2019-05-19 08:10] LABS: ALBUMIN 2.5 g/dL (3.7-5.6); ALKALINE PHOSPHATASE 68 U/L (50-135); ASPARTATE AMINO TRANSFERASE 24 U/L (5-30); BILIRUBIN,DIRECT 0.6 mg/dL (0.0-0.4); BILIRUBIN,TOTAL 0.6 mg/dL (0.2-1.3); TOTAL PROTEIN 5.6 g/dL (6.3-8.2)
--- NOTE | 2019-05-19 08:17 | RADIOLOGY REPORT (SQ) ---
EXAM DESCRIPTION: CHEST SINGLE VIEW COMPLETED DATE/TIME: 05/19/2019 7:18 am REASON FOR STUDY: intubation COMPARISON: 05/18/2019 EXAM PARAMETERS: NUMBER OF VIEWS: One view. TECHNIQUE: Single frontal radiographic view of the chest acquired. RADIATION DOSE: NA LIMITATIONS: None. FINDINGS: LUNGS AND PLEURA: Low lung volumes with mild patchy opacities in the perihilar and left ba silar region, stable. No pneumothorax. Possible small right effusion. MEDIASTINUM AND HILAR STRUCTURES: No masses. Contour normal. HEART AND VASCULAR STRUCTURES: Heart normal in size. Normal vasculature. BONES: No acute findings. HARDWARE: Endotracheal tube tip overlies midthoracic trachea. Enteric tube tip below diaphragm but e xcluded by collimation. OTHER: No other significant finding. IMPRESSION: Low lung volumes with patchy opacities in the perihilar and left basilar region. Trace right effusion. Satisfactory position of the lines and tubes as above. TECHNICAL DOCUMENTATION: JOB ID: [id number] [employer]- All Rights Reserved Reading location - IP/workstation name: [email or web address]
--- NOTE | 2019-05-19 08:18 | RADIOLOGY REPORT (SQ) ---
EXAM DESCRIPTION: KUB/ABDOMEN (SINGLE VIEW) COMPLETED DATE/TIME: 05/19/2019 7:18 am REASON FOR STUDY: [place]hoff verification COMPARISON: None. NUMBER OF VIEWS: One view. TECHNIQUE: Supine radiographic image of the abdomen acquired. LIMITATIONS: None. FINDINGS: BOWEL GAS PATTERN: Normal bowel gas pattern. No dilated loops. Residual contrast througho ut the colon. CALCIFICATIONS: No suspicious calcifications. SOFT TISSUES: No gross mass or suggestion of organomegaly. HARDWARE: Weighted tip enteric tube distal tip overlies left abdomen, likely proximal jejunum BONES: No acute fracture. No worrisome bone lesions. OTHER: No other significant finding. IMPRESSION: Enteric tube tip overlies left abdomen, likely proximal jejunum. TECHNICAL DOCUMENTATION: JOB ID: [id number] [employer]- All Rights Reserved Reading location - IP/workstation name: [email or web address]
[2019-05-19] MEDS: LEVALBUTEROL HCL NEB 1.25 MG/3 ML AMPUL NEB SCH ×3 (08:40→23:52)
[2019-05-19] MEDS: IPRATROPIUM BROMIDE 0.02% NEB 0.5 MG/2.5 ML AMPUL NEB SCH ×3 (08:40→23:52)
[2019-05-19] MEDS: MAGNESIUM SULFATE/D5W 1 GM/100 ML RTUPB IV SCH ×2 (08:57→10:15)
[2019-05-19] MEDS: ALBUMIN HUMAN 12.5 GM/50 ML RTUINJ IV SCH ×2 (08:58→17:08)
[2019-05-19] MEDS: NORMAL SALINE 1000 ML 1,000 ML IV PRN ×3 (09:01→21:25)
[2019-05-19] MEDS: PANTOPRAZOLE SODIUM 40 MG VIAL IV SCH ×2 (09:01→21:23)
[2019-05-19] MEDS: DOCUSATE SODIUM 100 MG/10 ML UDC NG SCH ×2 (09:01→17:08)
[2019-05-19 09:05] LABS: URINE CREATININE 41.5 mg/dL (16-327)
[2019-05-19] MEDS ORDERED: FENTANYL CITRATE INJ/PF 250 MCG/5 ML AMPULE IV ONE (09:53)
[2019-05-19] MEDS: NORETHINDRONE E ESTRADIOL IRON PO SCH (10:15)
[2019-05-19] MEDS: METOPROLOL TARTRATE 25 MG TABLET GT SCH ×2 (10:32→21:23)
--- NOTE | 2019-05-19 10:47 | PDOC PROGRESS REPORT ---
Subjective Progress Note for:: 05/18/19 Subjective:: May 16, 2019-unable to assess secondary to autism May 17, 2019-intubated sedated May 18, 2019-remains intubated sedated Reason For Visit: ACUTE PANCREATITIS Physical Exam Vital Signs: Temp Pulse Resp BP Pulse Ox 98.1 F 109 H 8 L 148/101 H 99 05/19/19 07:59 05/19/19 08:41 05/19/19 10:12 05/19/19 10:12 05/19/19 10:12 Intake & Output 05/18/19 05/19/19 05/20/19 06:59 06:59 06:59 Intake Total 402 2582 901 Output Total 2009 2049 350 Balance 2015 412 551 Weight 102.8 kg 105.7 kg Results Laboratory Results: 05/19/19 05:20 05/19/19 05:20 05/19/19 05/19/19 05/19/19 05:20 05:20 05:20 WBC 10.8 H RBC 3.27 L Hgb 10.7 L Hct 31.5 L MCV 97 MCH 32.6 MCHC 33.8 RDW 15.3 H Plt Count 165 Seg Neutrophils % Not Reportable Lymphocytes % Not Reportable Monocytes % Not Reportable Eosinophils % Not Reportable Basophils % Not Reportable Absolute Neutrophils Not Reportable Absolute Lymphocytes Not Reportable Absolute Monocytes Not Reportable Absolute Eosinophils Not Reportable Absolute Basophils Not Reportable Carbonic Acid HCO3/H2CO3 Ratio ABG pH ABG pCO2 ABG pO2 ABG HCO3 ABG O2 Saturation ABG Base Excess FiO2 Sodium 143.0 Potassium 4.0 Chloride 115 H Carbon Dioxide 19 L Anion Gap 9 BUN 10 Creatinine 2.65 H Est GFR ( Amer) 28 L Est GFR (Non-Af Amer) 23 L Glucose 133 H Calcium 7.6 L Magnesium 1.5 L Total Bilirubin AST Alkaline Phosphatase Total Protein Albumin Amylase 79 Lipase 1071.0 H 05/19/19 05/19/19 05/19/19 05:20 05:20 06:20 WBC RBC Hgb Hct MCV MCH MCHC RDW Plt Count Seg Neutrophils % Lymphocytes % Monocytes % Eosinophils % Basophils % Absolute Neutrophils Absolute Lymphocytes Absolute Monocytes Absolute Eosinophils Absolute Basophils Carbonic Acid Cancelled 1.09 HCO3/H2CO3 Ratio Cancelled 18:1 ABG pH Cancelled 7.35 ABG pCO2 Cancelled 36.3 ABG pO2 Cancelled 110.7 H ABG HCO3 Cancelled 19.7 L ABG O2 Saturation Cancelled 97.9 ABG Base Excess Cancelled -5.3 FiO2 Cancelled 25% Sodium Potassium Chloride Carbon Dioxide Anion Gap BUN Creatinine Est GFR ( Amer) Est GFR (Non-Af Amer) Glucose Calcium Magnesium Total Bilirubin 0.6 AST 24 Alkaline Phosphatase 68 Total Protein 5.6 L Albumin 2.5 L Amylase Lipase 05/16/19 14:45 Catheterized Urine Urine Culture - Final Escherichia Coli 05/19/19 09:07 Troponin I < 0.012 Impressions: Abdomen/Pelvis CT 05/17/19 00:00 IMPRESSION: 1. There is dense bibasilar consolidation and/or atelectasis of the bilateral lower lobes, with scattered clustered pulmonary nodules elsewhere, for example in the lingula. Findings are most consistent with multifocal infection or aspiration, however there is no appearance characteristic for ARDS, particularly no evidence of pulmonary edema or alveolar pattern airspace disease. 2. Redemonstrated inflammatory fat stranding about the pancreas, not significant change compared to prior examination. Findings are again consistent with pancreatitis and there is no evidence of focal fluid collection or other complication. 3. Small volume fluid in the abdomen and pelvis, likely reactive. Chest CT 05/17/19 00:00 IMPRESSION: 1. There is dense bibasilar consolidation and/or atelectasis of the bilateral lower lobes, with scattered clustered pulmonary nodules elsewhere, for example in the lingula. Findings are most consistent with multifocal infection or aspiration, however there is no appearance characteristic for ARDS, particularly no evidence of pulmonary edema or alveolar pattern airspace disease. 2. Redemonstrated inflammatory fat stranding about the pancreas, not significant change compared to prior examination. Findings are again consistent with pancreatitis and there is no evidence of focal fluid collection or other complication. 3. Small volume fluid in the abdomen and pelvis, likely reactive. Gastrostomy Tube Placement 05/18/19 00:00 IMPRESSION: Successful fluoroscopic guided placement of a NJ tube. Guidance Fluoroscopy 05/18/19 00:00 IMPRESSION: Successful fluoroscopic guided placement of a NJ tube. Chest X-Ray 05/19/19 06:00 IMPRESSION: Low lung volumes with patchy opacities in the perihilar and left basilar region. Trace right effusion. Satisfactory position of the lines and tubes as above. KUB X-Ray 05/19/19 06:00 IMPRESSION: Enteric tube tip overlies left abdomen, likely proximal jejunum. Assessment and Plan - Diagnosis (1) Pancreatitis, acute Is this a current diagnosis for this admission?: Yes Plan: Patient is admitted to the medical floor. Lipase is elevated to 1882. Check lipid panel with a.m. lab work. Currently in n.p.o. status. Antiemetics and analgesics as needed. Have discussed with nursing, patient to receive 1 L normal saline bolus following her next pain medication administration (administer so as continuous IV fluids have caused the patient to have severe anxiety/agitation; this way her fluid boluses will hopefully be done by the time she wakes following morphine). She did receive 2 L normal saline by the ED provider yesterday. We will need to monitor closely for evidence of dehydration while getting intermittent fluid boluses. Advance to clear liquids as tolerated. May 16, 2019-awaiting repeat lipase. Continue n.p.o. status. Continue normal saline at 100 mL an hour. Once I have a review of her most recent lipase I will make determination on advancing diet at that time. May 17, 2019-repeat lipase done at 900 today. Continue n.p.o. status continue IV hydration. Patient remains on fentanyl 50 mcg every 2 hours as needed pain. May 18, 2019-slight elevation in lipase today. Keep patient completely n.p.o. Will have Dobbhoff placed postpyloric for tube feeds. (2) Abdominal pain Is this a current diagnosis for this admission?: Yes Plan: Secondary to #1 Analgesics as needed. May 16, 2019-continue PRN morphine. May 17, 2019-morphine was DC'd. Patient placed on fentanyl 50 mcg every 2 hours as needed continue to give as needed May 18, 2019-continue fentanyl. Unable to gauge patient's pain secondary sedation (3) Encephalopathy Is this a current diagnosis for this admission?: Yes (4) Autism Is this a current diagnosis for this admission?: Yes (5) UTI (urinary tract infection) Is this a current diagnosis for this admission?: Yes Plan: May 16, 2019-urine culture showing gram-negative rods. At this time we will start Rocephin 1 g IV daily await cultures returned with sensitivity. May 17, 2019-Rocephin was DC'd when patient removed ICU I placed her on Zosyn per pharmacy dosing await cultures for offending organism. May 18, 2019-patient continues on Zosyn per pharmacy dosing. Cultures retu rned showing UTI is E. coli with sensitivity to Zosyn. (6) Acute respiratory failure Qualifiers: Respiratory failure complication: hypoxia and hypercapnia Qualified Code(s): J96.01 - Acute respiratory failure with hypoxia; J96.02 - Acute respiratory failure with hypercapnia Is this a current diagnosis for this admission?: Yes Plan: May 17, 2019-patient moved emergently to the ICU yesterday after experiencing respiratory failure secondary to narcotics and benzodiazepines for her acute pancreatitis. Patient was given Narcan and flumazenil on the floor which caused her to wake and upset her autism. Patient became very violent and uncontrollable at that time. Was taking 5 staff members to keep patient in bed and from crawling over the rails of the bed. Patient was moved to ICU and placed on the ventilator. She was stabilized yesterday. This morning when wa lking into the ICU patient was found to be showing desaturation on current ventilator settings with SIMV of 14, tidal volume 400, FiO2 21% and 5 of PEEP. Stat portable chest was obtained showed no acute findings although did look suspicious for an aspiration, stat ABG showed that patient was having hypoxia with a low PCO2, and patient continued to be agitated thrashing about in the bed. At that time I gave patient 100 mg of rocuronium to increase compliance with ventilator. This did not help initially we had to make various adjustments to ventilator. Overall patient required pressor rate of 24, tidal volume of 450, PEEP of 12, FiO2 100% and finally showed the ability to hold her saturation of 96-97%. Patient was also started on Versed drip to help with sedation. Patient remains on dipper Van at this time but was maxed out at 50 mics per minute. Stat CT of the chest, abdomen and pelvis was obtained. CT showed aspiration possible bilateral infiltrate suggestive of pneumonia no new findings on abdomen pelvis other than continued inflammation of the pancreas. Patient was placed on IV vancomycin for this aspiration pneumonia as well as Zosyn. Patient much more couple this time we have been titrating down her FiO2, rate and PEEP support and have it almost to baseline at this point. I spent a total of 1 hour today in critical care time initially monitoring may change plan of care. On monitor heart rate, blood pressure, respiratory rate, laboratory database, chest x-ray, CT of abdomen pelvis. May 18, 2019-patient remains intubated and sedated. Ventilator stable at this time SIMV 16, tidal volume 400, PEEP of 5 and 25% FiO2. (7) LAISHA (acute kidney injury) Is this a current diagnosis for this admission?: Yes Plan: May 18, 2019-patient's creatinine up to 1.26 today. I will continue hydration repeat BMP in a.m. - Time Time Spent with patient: 25-34 minutes - Inpatient Certification Based on my medical assessment, after consideration of the patient's comorbidities, presenting symptoms, or acuity I expect that the services needed warrant INPATIENT care.: Yes I certify that my determination is in accordance with my understanding of Medicare's requirements for reasonable and necessary INPATIENT services [42 CFR 412.3e].: Yes Medical Necessity: Other - Intubated, sedated, IV fluids, IV antibiotics
[2019-05-19] MEDS ORDERED: FENTANYL CITRATE INJ/PF 100 MCG/2 ML AMPUL IV ONE (11:00)
[2019-05-19] MEDS: FENTANYL CITRATE/PF 600 MCG/60 ML BAG IV PRN ×2 (11:06→18:23)
--- NOTE | 2019-05-19 11:12 | PDOC PROGRESS REPORT ---
Subjective Progress Note for:: 05/19/19 Subjective:: May 16, 2019-unable to assess secondary to autism May 17, 2019-intubated sedated May 18, 2019-remains intubated sedated May 19, 2019- intubated and sedated. Reason For Visit: ACUTE PANCREATITIS Physical Exam Vital Signs: Temp Pulse Resp BP Pulse Ox 98.1 F 109 H 8 L 148/101 H 99 05/19/19 07:59 05/19/19 08:41 05/19/19 10:12 05/19/19 10:12 05/19/19 10:12 Intake & Output 05/18/19 05/19/19 05/20/19 06:59 06:59 06:59 Intake Total 402 2432 901 Output Total 2009 2049 350 Balance 2015 412 551 Weight 102.8 kg 105.7 kg General appearance: PRESENT: no acute distress, well-developed, well-nourished Neck exam: ABSENT: carotid bruit, JVD, lymphadenopathy, thyromegaly Respiratory exam: PRESENT: decreased breath sounds, other Cardiovascular exam: PRESENT: RRR. ABSENT: diastolic murmur, rubs, systolic murmur Pulses: PRESENT: normal dorsalis pedis pul Vascular exam: PRESENT: normal capillary refill GI/Abdominal exam: PRESENT: normal bowel sounds, soft. ABSENT: distended, guarding, mass, organolmegaly, rebound, tenderness Extremities exam: PRESENT: full ROM. ABSENT: calf tenderness, clubbing, pedal edema Neurological exam: PRESENT: alert, awake, oriented to person, oriented to place, oriented to time, oriented to situation, CN II-XII grossly intact. ABSENT: motor sensory deficit Psychiatric exam: PRESENT: appropriate affect, normal mood. ABSENT: homicidal ideation, suicidal ideation Skin exam: PRESENT: dry, intact, warm. ABSENT: cyanosis, rash Results Laboratory Results: 05/19/19 05:20 05/19/19 05:20 05/19/19 05/19/19 05/19/19 05:20 05:20 05:20 WBC 10.8 H RBC 3.27 L Hgb 10.7 L Hct 31.5 L MCV 97 MCH 32.6 MCHC 33.8 RDW 15.3 H Plt Count 165 Seg Neutrophils % Not Reportable Lymphocytes % Not Reportable Monocytes % Not Reportable Eosinophils % Not Reportable Basophils % Not Reportable Absolute Neutrophils Not Reportable Absolute Lymphocytes Not Reportable Absolute Monocytes Not Reportable Absolute Eosinophils Not Reportable Absolute Basophils Not Reportable Carbonic Acid HCO3/H2CO3 Ratio ABG pH ABG pCO2 ABG pO2 ABG HCO3 ABG O2 Saturation ABG Base Excess FiO2 Sodium 143.0 Potassium 4.0 Chloride 115 H Carbon Dioxide 19 L Anion Gap 9 BUN 10 Creatinine 2.65 H Est GFR ( Amer) 28 L Est GFR (Non-Af Amer) 23 L Glucose 133 H Calcium 7.6 L Magnesium 1.5 L Total Bilirubin AST Alkaline Phosphatase Total Protein Albumin Amylase 79 Lipase 1071.0 H 05/19/19 05/19/19 05/19/19 05:20 05:20 06:20 WBC RBC Hgb Hct MCV MCH MCHC RDW Plt Count Seg Neutrophils % Lymphocytes % Monocytes % Eosinophils % Basophils % Absolute Neutrophils Absolute Lymphocytes Absolute Monocytes Absolute Eosinophils Absolute Basophils Carbonic Acid Cancelled 1.09 HCO3/H2CO3 Ratio Cancelled 18:1 ABG pH Cancelled 7.35 ABG pCO2 Cancelled 36.3 ABG pO2 Cancelled 110.7 H ABG HCO3 Cancelled 19.7 L ABG O2 Saturation Cancelled 97.9 ABG Base Excess Cancelled -5.3 FiO2 Cancelled 25% Sodium Potassium Chloride Carbon Dioxide Anion Gap BUN Creatinine Est GFR ( Amer) Est GFR (Non-Af Amer) Glucose Calcium Magnesium Total Bilirubin 0.6 AST 24 Alkaline Phosphatase 68 Total Protein 5.6 L Albumin 2.5 L Amylase Lipase 05/16/19 14:45 Catheterized Urine Urine Culture - Final Escherichia Coli 05/19/19 09:07 Troponin I < 0.012 Impressions: Abdomen/Pelvis CT 05/17/19 00:00 IMPRESSION: 1. There is dense bibasilar consolidation and/or atelectasis of the bilateral lower lobes, with scattered clustered pulmonary nodules elsewhere, for example in the lingula. Findings are most consistent with multifocal infection or aspiration, however there is no appearance characteristic for ARDS, particularly no evidence of pulmonary edema or alveolar pattern airspace disease. 2. Redemonstrated inflammatory fat stranding about the pancreas, not significant change compared to prior examination. Findings are again consistent with pancreatitis and there is no evidence of focal fluid collection or other complication. 3. Small volume fluid in the abdomen and pelvis, likely reactive. Chest CT 05/17/19 00:00 IMPRESSION: 1. There is dense bibasilar consolidation and/or atelectasis of the bilateral lower lobes, with scattered clustered pulmonary nodules elsewhere, for example in the lingula. Findings are most consistent with multifocal infection or aspiration, however there is no appearance characteristic for ARDS, particularly no evidence of pulmonary edema or alveolar pattern airspace disease. 2. Redemonstrated inflammatory fat stranding about the pancreas, not significant change compared to prior examination. Findings are again consistent with pancreatitis and there is no evidence of focal fluid collection or other complication. 3. Small volume fluid in the abdomen and pelvis, likely reactive. Gastrostomy Tube Placement 05/18/19 00:00 IMPRESSION: Successful fluoroscopic guided placement of a NJ tube. Guidance Fluoroscopy 05/18/19 00:00 IMPRESSION: Successful fluoroscopic guided placement of a NJ tube. Chest X-Ray 05/19/19 06:00 IMPRESSION: Low lung volumes with patchy opacities in the perihilar and left basilar region. Trace right effusion. Satisfactory position of the lines and tubes as above. KUB X-Ray 05/19/19 06:00 IMPRESSION: Enteric tube tip overlies left abdomen, likely proximal jejunum. Assessment and Plan - Diagnosis (1) Pancreatitis, acute Is this a current diagnosis for this admission?: Yes Plan: Patient is admitted to the medical floor. Lipase is elevated to 1882. Check lipid panel with a.m. lab work. Currently in n.p.o. status. Antiemetics and analgesics as needed. Have discussed with nursing, patient to receive 1 L normal saline bolus following her next pain medication administration (administer so as continuous IV fluids have caused the patient to have severe anxiety/agitation; this way her fluid boluses will hopefully be done by the time she wakes following morphine). She did receive 2 L normal saline by the ED provider yesterday. We will need to monitor closely for evidence of dehydration while getting inter mittent fluid boluses. Advance to clear liquids as tolerated. May 16, 2019-awaiting repeat lipase. Continue n.p.o. status. Continue normal saline at 100 mL an hour. Once I have a review of her most recent lipase I will make determination on advancing diet at that time. May 17, 2019-repeat lipase done at 900 today. Continue n.p.o. status continue IV hydration. Patient remains on fentanyl 50 mcg every 2 hours as needed pain. May 18, 2019-slight elevation in lipase today. Keep patient completely n.p.o. Will have Dobbhoff placed postpyloric for tube feeds. May 19, 2019-lipase remains elevated at this time. Keep patient currently n.p.o. at this time. Continue to increase to Dobbhoff place all oral medications through Dobbhoff as well. Continue IV hydration normal saline 100 mL an hour. Will give patient albumin as well 12.5 g IV every 8 as patient's showing third spacing as well as low albumin at this time. (2) Abdominal pain Is this a current diagnosis for this admission?: Yes Plan: Secondary to #1 Analgesics as needed. May 16, 2019-continue PRN morphine. May 17, 2019-morphine was DC'd. Patient placed on fentanyl 50 mcg every 2 hours as needed continue to give as needed May 18, 2019-continue fentanyl. Unable to gauge patient's pain secondary sedation May 19, 2019-Place patient on fentanyl drip at this time 75 mcg/min (3) Encephalopathy Is this a current diagnosis for this admission?: Yes (4) Autism Is this a current diagnosis for this admission?: Yes (5) UTI (urinary tract infection) Is this a current diagnosis for this admission?: Yes Plan: May 16, 2019-urine culture showing gram-negative rods. At this time we will start Rocephin 1 g IV daily await cultures returned with sensitivity. May 17, 2019-Rocephin was DC'd when patient removed ICU I placed her on Zosyn per pharmacy dosing await cultures for offending organism. May 18, 2019-patient continues on Zosyn per pharmacy dosing. Cultures returned showing UTI is E. coli with sensitivity to Zosyn. May 19, 2019-continue Zosyn (6) Acute respiratory failure Qualifiers: Respiratory failure complication: hypoxia and hypercapnia Qualified Code(s): J96.01 - Acute respiratory failure with hypoxia; J96.02 - Acute respiratory failure with hypercapnia Is this a current diagnosis for this admission?: Yes Plan: May 17, 2019-patient moved emergently to the ICU yesterday after experiencing respiratory failure secondary to narcotics and benzodiazepines for her acute pancreatitis. Patient was given Narcan and flumazenil on the floor which caused her to wake and upset her autism. Patient became very violent and uncontrollab le at that time. Was taking 5 staff members to keep patient in bed and from crawling over the rails of the bed. Patient was moved to ICU and placed on the ventilator. She was stabilized yesterday. This morning when walking into the ICU patient was found to be showing desaturation on current ventilator settings with SIMV of 14, tidal volume 400, FiO2 21% and 5 of PEEP. Stat portable chest was obtained showed no acute findings although did look suspicious for an aspiration, stat ABG showed that patient was having hypoxia with a low PCO2, and patient continued to be agitated thrashing about in the bed. At that time I gave patient 100 mg of rocuronium to increase compliance with ventilator. This did not help initially we had to make various adjustments to ventilator. Overall patient required pressor rate of 24, tidal volume of 450, PEEP of 12, FiO2 100% and finally showed the ability to hold her saturation of 96-97%. Patient was also started on Versed drip to help with sedation. Patient remains on dipper Van at this time but was maxed out at 50 m[address] per minute. Stat CT of the chest, abdomen and pelvis was obtained. CT showed aspiration possible bilateral infiltrate suggestive of pneumonia no new findings on abdomen pelvis other than continued inflammation of the pancreas. Patient was placed on IV vancomycin for this aspiration pneumonia as well as Zosyn. Patient much more couple this time we have been titrating down her FiO2, rate and PEEP support and have it almost to baseline at this point. I spent a total of 1 hour today in critical care time initially monitoring may change plan of care. On monitor heart rate, blood pressure, respiratory rate, laboratory database, chest x-ray, CT of abdomen pelvis. May 18, 2019-patient remains intubated and sedated. Ventilator stable at this time SIMV 16, tidal volume 400, PEEP of 5 and 25% FiO2. May 19, 2019-patient remains intubated sedated. Patient was intubated for medical management of her medical conditions not for her rest yusra failure per se. Patient with severe autism unable to communicate and extremely livid when not sedated. Patient remains on ventilator at current settings. (7) LAISHA (acute kidney injury) Is this a current diagnosis for this admission?: Yes Plan: May 18, 2019-patient's creatinine up to 1.26 today. I will continue hydration repeat BMP in a.m. May 19, 2019-creatinine bumped up to over 2.[address] Abernathy was consulted. I did a fractional secretion sodium showed a 4.26 which shows a postobstructive uropathy. I discussed this with Dr. Abernathy she thinks it may be a contrast associated uropathy as patient did get contrast 2 days ago. Patient remains on normal saline 150 mL an hour she is making good urine per Salguero. I did have nurses do a bladder scan which showed 130 cc. At that time F bebetoy was flushed at 188 cc returned. Will await further recognitions per nephrology - Time Time Spent with patient: 25-34 minutes - Inpatient Certification Based on my medical assessment, after consideration of the patient's comorbi dities, presenting symptoms, or acuity I expect that the services needed warrant INPATIENT care.: Yes I certify that my determination is in accordance with my understanding of Medicare's requirements for reasonable and necessary INPATIENT services [42 CFR 412.3e].: Yes Medical Necessity: Other - IV fluids, IV antibiotics, ventilator
[2019-05-19] MEDS ORDERED: PROPRANOLOL HCL 40 MG TABLET PO SCH (12:00)
[2019-05-19] MEDS: PIPERACILLIN SODIUM/TAZOBACTAM 2.25 GM in NORMAL SALINE 50 ML IV SCH ×2 (12:19→17:07)
--- NOTE | 2019-05-19 12:39 | PDOC CONSULTATION ---
Consultation Consult Date: 05/19/19 Provider Consulted: KYARA SOSA History of Present Illness Admission Date/PCP: 05/14/19 20:24 [address] History of Present Illness: AARTI WOODALL is a 18 year old female with history of autism, nonverbal, and obesity who was admitted on 05/14/2019 because of vomiting and was found to have acute pancreatitis with inflamed pancreas and CT of the abdomen. She is being treated for acute pancreatitis with IV fluids and pain medications. From records it appears that patient could be agitated at times prior to her being intubated. About 3 days ago on May 16 the patient was found to be unresponsive after receiving morphine doses for pain plus Ativan and she required IV Narcan and IV flumazenil. When she woke up she became very agitated and difficult to manage requiring at least 5 people to hold her down so decision was made to intubate her for better management. Currently she is now here in ICU on mechanical ventilator and being sedated. She also has urinary tract infection secondary to E. coli. In May [address] showed new dense bibasilar consolidation and bilateral lower lobes suggestive of possible aspiration. Patient was then started on IV antibiotics including vancomycin. The patient's kidney function was within acceptable limits on admission with admission BUN of 14 and creatinine of 0.96. On May 17 she had a BUN of 7, and creatinine of 0.7. Starting yesterday her creatinine started to go up. Yesterday she had a BUN of 4 with creatinine of 1.26 and today she had a BUN of 10 with creatinine of 2.65. Patient is nonoliguric and is making at least 2 L of urine for the last few days. Her intake and output balance is at least +7 L since admission. On May 17 the patient had a second CT scan of the chest with IV contrast. She also received IV contrast on admission on 05/14/[address] scan of the abdomen. Yesterday she had a vancomycin trough level of 41.6 which is in the toxic range. She had received 1 dose of Toradol on May 15. Past Medical History Neurological Medical History: Reports: Other - Autism and nonverbal at baseline Endocrine Medical History: Reports: Obesity Psychiatric Medical History: Denies: Depression Past Surgical History Past Surgical History: Reports: Orthopedic Surgery - ankles and feet Social History Information Source: [facility] Records Lives with: Family Smoking Status: Never Smoker Frequency of Alcohol Use: None Hx Recreational Drug Use: No Drugs: None Hx Prescription Drug Abuse: No - Advance Directive Resuscitation Status: Full Code Family History Family History: DM, End Stage Renal Disease - Mother Parental Family History Reviewed: Yes Children Family History Reviewed: NA Sibling(s) Family History Reviewed.: Yes Medication/Allergy Home Medications: Chlorpromazine HCl [Chlorpromazine HCL 200 mg Tablet] 1 tab PO Q12 05/15/19 Divalproex Sodium [Depakote ER 500 mg Tab.sr] 1,000 mg PO QPM 05/15/19 Divalproex Sodium [Depakote ER 500 mg Tab.sr] 500 mg PO QAM 05/15/19 Guanfacine HCl 1 mg PO QAM 05/15/19 Guanfacine HCl 2 mg PO QHS 05/15/19 Natrexone 50 mg PO BID 05/15/19 Norethindrone-E.estradiol-Iron [Wwgojjus-Vvzngn-Waoe 1-0.02 mg] 1 each PO DAILY 05/15/19 Propranolol HCl [Inderal 10 mg Tablet] 10 mg PO Q12 05/15/19 Quetiapine Fumarate [Seroquel] 50 mg PO QAM 05/15/19 Quetiapine Fumarate [Seroquel] 150 mg PO QHS 05/15/19 Trazodone HCl [Desyrel] 300 mg PO QHS 05/15/19 Trihexyphenidyl HCl [Artane 5 mg Tablet] 5 mg PO DAILY 05/15/19 Allergies/Adverse Reactions: No Known Allergies Allergy (Verified 05/14/19 11:48) Review of Systems ROS unobtainable: Due to endotracheal tube, Due to mental status Physical Exam Vital Signs: Temp Pulse Resp BP Pulse Ox 96.8 F L 105 H 16 148/101 H 98 05/19/19 10:00 05/19/19 10:00 05/19/19 12:06 05/19/19 10:12 05/19/19 12:06 Intake & Output 05/18/19 05/19/19 05/20/19 06:59 06:59 06:59 Intake Total 7451 9360 906 Output Total 2009 2049 892 Balance 2015 412 271 Weight 102.8 kg 105.7 kg Exam: General appearance: Patient is intubated and sedated Head exam: PRESENT: atraumatic, normocephalic Eye exam: PRESENT: Eyes are closed Mouth exam: PRESENT: moist, neck supple, tongue midline Neck exam: PRESENT: full ROM. ABSENT: carotid bruit, JVD, lymphadenopathy, thyromegaly Respiratory exam: PRESENT: Slightly diminished to auscultation bilaterally. ABSENT: rales, rhonchi, stridor, wheezes Cardiovascular exam: PRESENT: RRR, +S1, +S2. ABSENT: systolic murmur Pulses: PRESENT: normal radial pulses, normal dorsalis pedis pulses GI/Abdominal exam: PRESENT: normal bowel sounds, soft. ABSENT: guarding, mass, tenderness Rectal exam: Deferred Extremities exam: PRESENT: full ROM. She has mild bilateral upper extremity edema and grade 1 bilateral lower extremity edema ABSENT: calf tenderness Musculoskeletal: PRESENT: full ROM. ABSENT: deformity Neurological exam: PRESENT: Patient is sedated Psychiatric exam: Cannot be assessed while on sedation Skin exam: PRESENT: intact, dry, warm. ABSENT: rash Results Laboratory Results: 05/19/19 05:20 05/19/19 05:20 05/19/19 05/19/19 05/19/19 05:20 05:20 05:20 WBC 10.8 H RBC 3.27 L Hgb 10.7 L Hct 31.5 L MCV 97 MCH 32.6 MCHC 33.8 RDW 15.3 H Plt Count 165 Seg Neutrophils % Not Reportable Lymphocytes % Not Reportable Monocytes % Not Reportable Eosinophils % Not Reportable Basophils % Not Reportable Absolute Neutrophils Not Reportable Absolute Lymphocytes Not Reportable Absolute Monocytes Not Reportable Absolute Eosinophils Not Reportable Absolute Basophils Not Reportable Carbonic Acid HCO3/H2CO3 Ratio ABG pH ABG pCO2 ABG pO2 ABG HCO3 ABG O2 Saturation ABG Base Excess FiO2 Sodium 143.0 Potassium 4.0 Chloride 115 H Carbon Dioxide 19 L Anion Gap 9 BUN 10 Creatinine 2.65 H Est GFR ( Amer) 28 L Est GFR (Non-Af Amer) 23 L Glucose 133 H Calcium 7.6 L Magnesium 1.5 L Total Bilirubin AST Alkaline Phosphatase Total Protein Albumin Amylase 79 Lipase 1071.0 H 05/19/19 05/19/19 05/19/19 05:20 05:20 06:20 WBC RBC Hgb Hct MCV MCH MCHC RDW Plt Count Seg Neutrophils % Lymphocytes % Monocytes % Eosinophils % Basophils % Absolute Neutrophils Absolute Lymphocytes Absolute Monocytes Absolute Eosinophils Absolute Basophils Carbonic Acid Cancelled 1.09 HCO3/H2CO3 Ratio Cancelled 18:1 ABG pH Cancelled 7.35 ABG pCO2 Cancelled 36.3 ABG pO2 Cancelled 110.7 H ABG HCO3 Cancelled 19.7 L ABG O2 Saturation Cancelled 97.9 ABG Base Excess Cancelled -5.3 FiO2 Cancelled 25% Sodium Potassium Chloride Carbon Dioxide Anion Gap BUN Creatinine Est GFR ( Amer) Est GFR (Non-Af Amer) Glucose Calcium Magnesium Total Bilirubin 0.6 AST 24 Alkaline Phosphatase 68 Total Protein 5.6 L Albumin 2.5 L Amylase Lipase 05/17/19 13:30 Tracheal Aspirate Sputum Culture - Final Staphylococcus Aureus Normal Viri Absent 05/19/19 09:07 Troponin I < 0.012 Impressions: Abdomen/Pelvis CT 05/17/19 00:00 IMPRESSION: 1. There is dense bibasilar consolidation and/or atelectasis of the bilateral lower lobes, with scattered clustered pulmonary nodules elsewhere, for example in the lingula. Findings are most consistent with multifocal infection or aspiration, however there is no appearance characteristic for ARDS, particularly no evidence of pulmonary edema or alveolar pattern airspace disease. 2. Redemonstrated inflammatory fat stranding about the pancreas, not significant change compared to prior examination. Findings are again consistent with pancreatitis and there is no evidence of focal fluid collection or other complication. 3. Small volume fluid in the abdomen and pelvis, likely reactive. Chest CT 05/17/19 00:00 IMPRESSION: 1. There is dense bibasilar consolidation and/or atelectasis of the bilateral lower lobes, with scattered clustered pulmonary nodules elsewhere, for example in the lingula. Findings are most consistent with multifocal infection or aspiration, however there is no appearance characteristic for ARDS, particularly no evidence of pulmonary edema or alveolar pattern airspace disease. 2. Redemonstrated inflammatory fat stranding about the pancreas, not significant change compared to prior examination. Findings are again consistent with pancreatitis and there is no evidence of focal fluid collection or other complication. 3. Small volume fluid in the abdomen and pelvis, likely reactive. Gastrostomy Tube Placement 05/18/19 00:00 IMPRESSION: Successful fluoroscopic guided placement of a NJ tube. Guidance Fluoroscopy 05/18/19 00:00 IMPRESSION: Successful fluoroscopic guided placement of a NJ tube. Chest X-Ray 05/19/19 06:00 IMPRESSION: Low lung volumes with patchy opacities in the perihilar and left basilar region. Trace right effusion. Satisfactory position of the lines and tubes as above. KUB X-Ray 05/19/19 06:00 IMPRESSION: Enteric tube tip overlies left abdomen, likely proximal jejunum. Assessment & Plan - Diagnosis (1) LAISHA (acute kidney injury) Is this a current diagnosis for this admission?: Yes Plan: Patient is currently nonoliguric. This is most likely secondary to acute tubular necrosis secondary to multifactorial causes including administration of contrast and vancomycin toxicity which were both administered starting 05/17. Agree with discontinuation of vancomycin. I would also discontinue Toradol and avoid any other NSAIDs. I would not give this patient any more contrast as she had 2 doses of contrast during this admission already. Maintain euvolemia. The patient does not need any renal replacement therapy at this time. Continue to monitor kidney function and electrolytes. Avoid further nephrotoxic medications. Adjust doses of antibiotics according to kidney function. Ideally we do not allow the patient to have any PICC line due to her kidney function. However because of her history of autism and severe agitation while awake the surgeon is concerned that if she has a central line she will be prone to bleeding and exsanguination so they declined to put a central line. I discussed this with Akash Mendoza, FRANCHESKA. So considering the risks and benefits I will allow a PICC line for now. (2) Pancreatitis, acute Is this a current diagnosis for this admission?: Yes Plan: Managed by hospitalist service. (3) UTI (urinary tract infection) Is this a current diagnosis for this admission?: Yes Plan: Due to E. coli. Continue IV antibiotics. (4) Metabolic acidosis Is this a current diagnosis for this admission?: Yes Plan: Mild due to LAISHA. (5) Aspiration pneumonia Is this a current diagnosis for this admission?: Yes Plan: On IV Zosyn. (6) Hypoalbuminemia Is this a current diagnosis for this admission?: Yes (7) Hypomagnesemia Is this a current diagnosis for this admission?: Yes Plan: Replace as necessary. (8) Acute respiratory failure Qualifiers: Respiratory failure complication: hypoxia and hypercapnia Qualified Code(s): J96.01 - Acute respiratory failure with hypoxia; J96.02 - Acute respiratory failure with hypercapnia Is this a current diagnosis for this admission?: Yes (9) Autism Is this a current diagnosis for this admission?: Yes (10) Agitation Is this a current diagnosis for this admission?: Yes - Notes Notes: Thank you very much for this consultation. Discussed the case with Akash Mendoza NP. - Time Time Spent: Greater than 70 Minutes
[2019-05-19 15:21] LABS: ANION GAP 7 (5-19); BLOOD UREA NITROGEN 13 mg/dL (7-20); CALCIUM 7.4 mg/dL (8.4-10.2); CARBON DIOXIDE 21 mmol/L (22-30); CHLORIDE 115 mmol/L (98-107); GLUCOSE 127 mg/dL (75-110); POTASSIUM 3.8 mmol/L (3.6-5.0)
[2019-05-19] MEDS ORDERED: NORMAL SALINE 10 ML SDV (AFTER EACH USE) IV PRN (15:30)
--- NOTE | 2019-05-19 15:34 | RADIOLOGY REPORT (SQ) ---
EXAM DESCRIPTION: PICC INSERTION; U/S GUIDE FOR VASCULAR ACCESS COMPLETED DATE/TIME: 05/19/2019 2:59 pm REASON FOR STUDY: poor venous access; IV ACCESS COMPARISON: None. FLUOROSCOPY TIME: 2 images saved to PACS. TECHNIQUE: Fluoroscopic and ultrasound guided PICC placement. LIMITATIONS: None. PROCEDURE: After written consent and assessment were obtained, the portal x-ray machine was take the patient bedside. Ultrasound evaluation of potential access sites were performed. After successfully identifying a patent right basilic vein, the right arm was prepped and draped in a sterile fashion al dontae with the ultrasound probe. The entry site was anesthetized with 1% lidocaine. A 21 gauge 7 cm nee dle was advanced through the skin and into the basilic vein under live ultrasound guidance. A .018 g uide wire was then inserted through the needle and into the venous system. The needle was then remove d and an 11 blade scalpel was used to make a 1cm skin incision. A 5 fr peel-away sheath was advanced over the wire and into the venous system. A measurement was then made using the existing wire utiliz ing x-ray guidance. The wire was then removed and trimmed. The PICC was advanced through the peel-eduar y sheath and into the venous system. The peel-away sheath was removed and the catheter was adhered to the patients arm with a stat lock. The catheter was then aspirated and flushed and a sterile bandage was placed over the access site. A completion radiograph was saved to PACS confirming the catheter tip within the cavoatrial junction. IMPRESSION: SUCCESSFUL PLACEMENT OF A 5 FR DUAL LUMEN 39 CM PICC IN THE RIGHT BASILIC VEIN. COMMENT: Patient medication list reviewed: Yes- Quality ID# 130:Eligible professional attests to doc umenting in the medical record they obtained, updated, or reviewed the patient's current medications. . Quality ID 145: Final reports for procedures using fluoroscopy that document radiation exposure trixie sb, or exposure time and number of fluorographic images (if radiation exposure indices are not avail able) Quality ID #76: The patient was prepped and draped using maximum sterile barrier technique including cap, mask, sterile gown, sterile gloves, a large sterile sheet, hand hygiene, and 2% Chlorhexidine fo r cutaneous antisepsis. When ultrasound is used, sterile ultrasound techniques are followed requiring sterile gel and sterile probes. TECHNICAL DOCUMENTATION: JOB ID: [id number] [employer]- All Rights Reserved rev-02/25 Reading location - IP/workstation name: [email or web address]
--- NOTE | 2019-05-19 16:35 | RADIOLOGY REPORT (SQ) ---
EXAM DESCRIPTION: U/S RETROPERITON (RENAL/AORTA) COMPLETED DATE/TIME: 05/19/2019 4:20 pm REASON FOR STUDY: LAISHA COMPARISON: None. TECHNIQUE: Dynamic and static grayscale images acquired of the kidneys and bladder and recorded on P ACS. Additional selected color Doppler and spectral images recorded. LIMITATIONS: None. FINDINGS: RIGHT KIDNEY: The right kidney measures 10.8 x 5.1 x 4.9 cm, normal size. Normal echogeni city. No solid or suspicious masses. No hydronephrosis. No calcifications. LEFT KIDNEY: Left kidney measures 9.0 x 4.8 x 5.7 cm, normal size. Normal echogenicity. No solid or suspicious masses. No hydronephrosis. No calcifications. BLADDER: The patient has a Salguero catheter. OTHER FINDINGS: Incidentally, gallstones. IMPRESSION: 1. NORMAL RENAL ULTRASOUND. 2. The patient has a Salguero catheter. 3. Incidentally, gallstones. TECHNICAL DOCUMENTATION: JOB ID: [id number] [employer]- All Rights Reserved Reading location - IP/workstation name: [email or web address]
[2019-05-19] MEDS: NORMAL SALINE 10 ML SDV (SCHEDULED) IV SCH (21:24)
[2019-05-19] MEDS ORDERED: VANCOMYCIN HCL 1,250 MG in DEXTROSE 5%-WATER 250 ML IV SCH (22:00)
[2019-05-20] MEDS: PIPERACILLIN SODIUM/TAZOBACTAM 2.25 GM in NORMAL SALINE 50 ML IV SCH ×4 (00:19→17:07)
[2019-05-20] MEDS: INSULIN REG, HUMAN 100 UNIT/ML 3 ML VIAL (PYX) SUBCUT SCH ×4 (00:19→17:08)
[2019-05-20] MEDS: POLYMYXIN B SULFATE/TMP OPH SOLN 10 ML OD SCH ×8 (00:20→21:13)
[2019-05-20] MEDS: FENTANYL CITRATE/PF 600 MCG/60 ML BAG IV PRN ×2 (02:28→10:43)
[2019-05-20] MEDS: ALBUMIN HUMAN 12.5 GM/50 ML RTUINJ IV SCH ×3 (03:05→17:07)
[2019-05-20 03:43] LABS: HEMATOCRIT 28.1 % (36.0-47.0); HEMOGLOBIN 9.4 g/dL (12.0-15.5); MEAN CORPUSCULAR HEMOGLOBIN 32.5 pg (27.0-33.4); MEAN CORPUSCULAR HGB CONC 33.5 g/dL (32.0-36.0); MEAN CORPUSCULAR VOLUME 97 fl (80-97); PLATELET COUNT 152 10^3/uL (150-450); RED CELL DISTRIBUTION WIDTH 15.6 % (11.5-14.0); WHITE BLOOD COUNT 9.3 10^3/uL (4.0-10.5)
[2019-05-20 04:12] LABS: ALBUMIN 2.6 g/dL (3.7-5.6); ALKALINE PHOSPHATASE 53 U/L (50-135); ANION GAP 10 (5-19); ASPARTATE AMINO TRANSFERASE 19 U/L (5-30); BILIRUBIN,DIRECT 0.5 mg/dL (0.0-0.4); BILIRUBIN,TOTAL 0.5 mg/dL (0.2-1.3); BLOOD UREA NITROGEN 15 mg/dL (7-20); CARBON DIOXIDE 18 mmol/L (22-30); CHLORIDE 118 mmol/L (98-107); GLUCOSE 89 mg/dL (75-110); POTASSIUM 3.8 mmol/L (3.6-5.0); TOTAL PROTEIN 5.7 g/dL (6.3-8.2)
[2019-05-20] MEDS: NORMAL SALINE 1000 ML 1,000 ML IV PRN ×3 (04:30→19:00)
[2019-05-20 04:48] LABS: ARTERIAL BLOOD BASE EXCESS -6.5 mmol/L; ARTERIAL BLOOD H2CO3 1.11 mmol/L (1.05-1.35); ARTERIAL BLOOD HCO3 18.9 mmol/L (20-24); ARTERIAL BLOOD O2 SATURATION 97.9 % (94-98); ARTERIAL BLOOD PH 7.33 (7.35-7.45); ARTERIAL BLOOD PO2 114.4 mmHg (80-100)
[2019-05-20 04:49] LABS: ARTERIAL BLOOD FIO2 28%
[2019-05-20] MEDS: HEPARIN SOD (PORCINE) 5,000 UNIT/ML 1 ML VIAL SUBCUT SCH ×3 (06:46→21:15)
[2019-05-20] MEDS: LEVALBUTEROL HCL NEB 1.25 MG/3 ML AMPUL NEB SCH ×2 (08:39→16:19)
[2019-05-20] MEDS: IPRATROPIUM BROMIDE 0.02% NEB 0.5 MG/2.5 ML AMPUL NEB SCH ×2 (08:39→16:19)
--- NOTE | 2019-05-20 08:54 | RADIOLOGY REPORT (SQ) ---
EXAM DESCRIPTION: CHEST SINGLE VIEW COMPLETED DATE/TIME: 05/20/2019 6:16 am REASON FOR STUDY: intubation COMPARISON: 05/19/2019 TECHNIQUE: Single frontal radiographic view of the chest acquired. NUMBER OF VIEWS: One view. LIMITATIONS: None. FINDINGS: LUNGS AND PLEURA: No pneumothorax. There are small bibasilar airspace opacities, likely u nchanged given differences in technique. No significant pleural effusion. MEDIASTINUM AND HILAR STRUCTURES: Stable. HEART AND VASCULAR STRUCTURES: Stable. BONES: No acute findings. HARDWARE: Endotracheal tube tip overlies the lower 3rd of the trachea, stable. Right-sided PICC line catheter tip overlies the RA -SVC junction, stable. Orogastric catheter tip is beyond the inferior margin the image overlying the body of the stomach. OTHER: No other significant finding. IMPRESSION: There are small bibasilar airspace opacities, likely unchanged given differences in tech nique. No significant pleural effusion. Tubes and lines stable. TECHNICAL DOCUMENTATION: JOB ID: [id number] 2010 [employer]- All Rights Reserved Reading location - IP/workstation name: [email or web address]
[2019-05-20] MEDS: MIDAZOLAM HCL 50 MG/100 ML RTUINJ IV PRN (10:42)
[2019-05-20] MEDS: PANTOPRAZOLE SODIUM 40 MG VIAL IV SCH ×2 (10:43→21:14)
[2019-05-20] MEDS: DOCUSATE SODIUM 100 MG/10 ML UDC NG SCH ×2 (10:44→17:08)
[2019-05-20] MEDS: NORMAL SALINE 10 ML SDV (SCHEDULED) IV SCH ×2 (10:45→21:15)
[2019-05-20] MEDS: NORETHINDRONE E ESTRADIOL IRON PO SCH (10:46)
[2019-05-20] MEDS: METOPROLOL TARTRATE 25 MG TABLET GT SCH ×2 (10:46→21:15)
[2019-05-20] MEDS: DEXMEDETOMIDINE IN NS 400 MCG/100 ML RTUPB IV PRN ×2 (15:30→22:51)
[2019-05-20] MEDS ORDERED: ZIPRASIDONE MESYLATE INJ/PF 20 MG SDV IM ONE (15:30)
--- NOTE | 2019-05-20 18:25 | PDOC PROGRESS REPORT ---
Subjective Progress Note for:: 05/20/19 Subjective:: May 16, 2019-unable to assess secondary to autism May 17, 2019-intubated sedated May 18, 2019-remains intubated sedated May 19, 2019- intubated and sedated. Reason For Visit: ACUTE PANCREATITIS Physical Exam Vital Signs: Temp Pulse Resp BP Pulse Ox 98.1 F 93 H 26 H 127/88 H 92 05/20/19 16:00 05/20/19 16:19 05/20/19 18:00 05/20/19 17:48 05/20/19 18:00 Intake & Output 05/19/19 05/20/19 05/21/19 06:59 06:59 06:59 Intake Total 2562 5165 1485 Output Total 2050 2115 1050 Balance 512 3050 435 Weight 105.7 kg 107.8 kg General appearance: PRESENT: no acute distress, well-developed, well-nourished Head exam: PRESENT: atraumatic, normocephalic Neck exam: ABSENT: carotid bruit, JVD, lymphadenopathy, thyromegaly Adult Head Front/Back Image: 1 - ET tube 2 - Dobbhoff tube Respiratory exam: PRESENT: clear to auscultation marisela, other - On ventilator. ABSENT: rales, rhonchi, wheezes Cardiovascular exam: PRESENT: RRR. ABSENT: diastolic murmur, rubs, systolic murmur Pulses: PRESENT: normal dorsalis pedis pul Vascular exam: PRESENT: normal capillary refill GI/Abdominal exam: PRESENT: normal bowel sounds, soft, tenderness - Patient remains intubated cannot determine her level of pain. ABSENT: distended, guarding, mass, organolmegaly, rebound Extremities exam: PRESENT: full ROM. ABSENT: calf tenderness, clubbing, pedal edema Neurological exam: PRESENT: other - Intubated and sedated Psychiatric exam: PRESENT: other - Intubated and sedated Skin exam: PRESENT: dry, intact, warm. ABSENT: cyanosis, rash Results Laboratory Results: 05/20/19 03:28 05/20/19 03:28 05/20/19 05/20/19 05/20/19 03:28 03:28 03:28 WBC 9.3 RBC 2.90 L Hgb 9.4 L Hct 28.1 L MCV 97 MCH 32.5 MCHC 33.5 RDW 15.6 H Plt Count 152 Carbonic Acid HCO3/H2CO3 Ratio ABG pH ABG pCO2 ABG pO2 ABG HCO3 ABG O2 Saturation ABG Base Excess FiO2 Sodium 146.2 H Potassium 3.8 Chloride 118 H Carbon Dioxide 18 L Anion Gap 10 BUN 15 Creatinine 3.09 H Est GFR ( Amer) 24 L Est GFR (Non-Af Amer) 19 L Glucose 89 Calcium 8.0 L Magnesium 2.2 Total Bilirubin 0.5 AST 19 Alkaline Phosphatase 53 Total Protein 5.7 L Albumin 2.6 L Lipase 992.5 H 05/20/19 04:40 WBC RBC Hgb Hct MCV MCH MCHC RDW Plt Count Carbonic Acid 1.11 HCO3/H2CO3 Ratio 17:1 ABG pH 7.33 L ABG pCO2 37.0 ABG pO2 114.4 H ABG HCO3 18.9 L ABG O2 Saturation 97.9 ABG Base Excess -6.5 FiO2 28% Sodium Potassium Chloride Carbon Dioxide Anion Gap BUN Creatinine Est GFR ( Amer) Est GFR (Non-Af Amer) Glucose Calcium Magnesium Total Bilirubin AST Alkaline Phosphatase Total Protein Albumin Lipase 05/14/19 18:40 Blood Blood Culture - Final NO GROWTH IN 5 DAYS 05/14/19 16:19 Blood Blood Culture - Final NO GROWTH IN 5 DAYS 05/19/19 09:07 Troponin I < 0.012 Impressions: Abdomen/Pelvis CT 05/17/19 00:00 IMPRESSION: 1. There is dense bibasilar consolidation and/or atelectasis of the bilateral lower lobes, with scattered clustered pulmonary nodules elsewhere, for example in the lingula. Findings are most consistent with multifocal infection or aspiration, however there is no appearance characteristic for ARDS, particularly no evidence of pulmonary edema or alveolar pattern airspace disease. 2. Redemonstrated inflammatory fat stranding about the pancreas, not significan t change compared to prior examination. Findings are again consistent with pancreatitis and there is no evidence of focal fluid collection or other complication. 3. Small volume fluid in the abdomen and pelvis, likely reactive. Chest CT 05/17/19 00:00 IMPRESSION: 1. There is dense bibasilar consolidation and/or atelectasis of the bilateral lower lobes, with scattered clustered pulmonary nodules elsewhere, for example in the lingula. Findings are most consistent with multifocal infection or aspiration, however there is no appearance characteristic for ARDS, particularly no evidence of pulmonary edema or alveolar pattern airspace disease. 2. Redemonstrated inflammatory fat stranding about the pancreas, not significant change compared to prior examination. Findings are again consistent with pancreatitis and there is no evidence of focal fluid collection or other complication. 3. Small volume fluid in the abdomen and pelvis, likely reactive. Gastrostomy Tube Placement 05/18/19 00:00 IMPRESSION: Successful fluoroscopic guided placement of a NJ tube. Guidance Fluoroscopy 05/18/19 00:00 IMPRESSION: Successful fluoroscopic guided placement of a NJ tube. Interventional Vascular Procedure 05/19/19 00:00 IMPRESSION: SUCCESSFUL PLACEMENT OF A 5 FR DUAL LUMEN 39 CM PICC IN THE RIGHT BASILIC VEIN. PICC Line Insertion 05/19/19 00:00 IMPRESSION: SUCCESSFUL PLACEMENT OF A 5 FR DUAL LUMEN 39 CM PICC IN THE RIGHT BASILIC VEIN. Renal Ultrasound 05/19/19 00:00 IMPRESSION: 1. NORMAL RENAL ULTRASOUND. 2. The patient has a Salguero catheter. 3. Incidentally, gallstones. KUB X-Ray 05/19/19 06:00 IMPRESSION: Enteric tube tip overlies left abdomen, likely proximal jejunum. Chest X-Ray 05/20/19 06:00 IMPRESSION: There are small bibasilar airspace opacities, likely unchanged given differences in technique. No significant pleural effusion. Tubes and lines stable. Assessment and Plan - Diagnosis (1) Pancreatitis, acute Is this a current diagnosis for this admission?: Yes Plan: Patient is admitted to the medical floor. Lipase is elevated to 1882. Check lipid panel with a.m. lab work. Currently in n.p.o. status. Antiemetics and analgesics as needed. Have discussed with nursing, patient to receive 1 L normal saline bolus fol lowing her next pain medication administration (administer so as continuous IV fluids have caused the patient to have severe anxiety/agitation; this way her fluid boluses will hopefully be done by the time she wakes following morphine). She did receive 2 L normal saline by the ED provider yesterday. We will need to monitor closely for evidence of dehydration while getting intermittent fluid boluses. Advance to clear liquids as tolerated. May 16, 2019-awaiting repeat lipase. Continue n.p.o. status. Continue normal saline at 100 mL an hour. Once I have a review of her most recent lipase I will make determination on advancing diet at that time. May 17, 2019-repeat lipase done at 900 today. Continue n.p.o. status continue IV hydration. Patient remains on fentanyl 50 mcg every 2 hours as needed pain. May 18, 2019-slight elevation in lipase today. Keep patient completely n.p.o. Will have Dobbhoff placed postpyloric for tube feeds. May 19, 2019-lipase remains elevated at this time. Keep patient currently n.p.o. at this time. Continue to increase to Dobbhoff place all oral medications through Dobbhoff as well. Continue IV hydration normal saline 100 mL an hour. Will give patient albumin as well 12.5 g IV every 8 as patient's showing third spacing as well as low albumin at this time. May 20, 2019-slightly improved this morning. Keep patient n.p.o. Continue feeding through Dobbhoff at this time. Hydration continues as I turned up her normal saline 125 Reagan's hour yesterday given her albumin 12.5 g IV every 8 hours. (2) Abdominal pain Is this a current diagnosis for this admission?: Yes Plan: Secondary to #1 Analgesics as needed. May 16, 2019-continue PRN morphine. May 17, 2019-morphine was DC'd. Patient placed on fentanyl 50 mcg every 2 hours as needed continue to give as needed May 18, 2019-continue fentanyl. Unable to gauge patient's pain secondary sedation May 19, 2019-Place patient on fentanyl drip at this time 75 mcg/hr May 20, 2019-patient remains on fentanyl drip decreased to 25 MCG/hr as were trying to extubate patient (3) Encephalopathy Is this a current diagnosis for this admission?: Yes (4) Autism Is this a current diagnosis for this admission?: Yes (5) UTI (urinary tract infection) Is this a current diagnosis for this admission?: Yes Plan: May 16, 2019-urine culture showing gram-negative rods. At this time we will start Rocephin 1 g IV daily await cultures returned with sensitivity. May 17, 2019-Rocephin was DC'd when patient removed ICU I placed her on Zosyn per pharmacy dosing await cultures for offending organism. May 18, 2019-patient continues on Zosyn per pharmacy dosing. Cultures returned showing UTI is E. coli with sensitivity to Zosyn. May 19, 2019-continue Zosyn May 20, 2019-patient remains on Zosyn at this time. (6) Acute respiratory failure Qualifiers: Respiratory failure complication: hypoxia and hypercapnia Qualified Code(s): J96.01 - Acute respiratory failure with hypoxia; J96.02 - Acute respiratory failure with hypercapnia Is this a current diagnosis for this admission?: Yes Plan: May 17, 2019-patient moved emergently to the ICU yesterday after experiencing respiratory failure secondary to narcotics and benzodiazepines for her acute pancreatitis. Patient was given Narcan and flumazenil on the floor which caused her to wake and upset her autism. Patient became very violent and uncontrollable at that time. Was taking 5 staff members to keep patient in bed and from crawling over the rails of the bed. Patient was moved to ICU and placed on the ventilator. She was stabilized yesterday. This morning when walking into the ICU patient was found to be showing desaturation on current ventilator settings with SIMV of 14, tidal volume 400, FiO2 21% and 5 of PEEP. Stat portable chest was obtained showed no acute findings although did look suspicious for an aspiration, stat ABG showed that patient was having hypoxia with a low PCO2, and patient continued to be agitated thrashing about in the bed. At that time I gave patient 100 mg of rocuronium to increase compliance with ventilator. This did not help initially we had to make various adjustments to ventilator. Overall patient required pressor rate of 24, tidal volume of 450, PEEP of 12, FiO2 100% and finally showed the ability to hold her saturation of 96-97%. Patient was also started on Versed drip to help with sedation. Patient remains on dipper Van at this time but was maxed out at 50 mics per minute. Stat CT of the chest, abdomen and pelvis was obtained. CT showed aspiration possible bilateral infiltrate suggestive of pneumonia no new findings on abdomen pelvis other than continued inflammation of the pancreas. Patient wa s placed on IV vancomycin for this aspiration pneumonia as well as Zosyn. Patient much more couple this time we have been titrating down her FiO2, rate and PEEP support and have it almost to baseline at this point. I spent a total of 1 hour today in critical care time initially monitoring may change plan of care. On monitor heart rate, blood pressure, respiratory rate, laboratory database, chest x-ray, CT of abdomen pelvis. May 18, 2019-patient remains intubated and sedated. Ventilator stable at this time SIMV 16, tidal volume 400, PEEP of 5 and 25% FiO2. May 19, 2019-patient remains intubated sedated. Patient was intubated for medical management of her medical conditions not for her rest yusra failure per se. Patient with severe autism unable to communicate and extremely livid when not sedated. Patient remains on ventilator at current settings. May 20, 2019-patient remains intubated and sedated at this time. I got her ventilator settings as SIMV of 4 she is overbreathing to 24. I decreased her PEEP to 0 and she has no need for PEEP at this time as her blood gas remained stable. Patient was placed on Precedex in order to keep her calm so that we could easily extubate her by Wednesday. (7) LAISHA (acute kidney injury) Is this a current diagnosis for this admission?: Yes Plan: May 18, 2019-patient's creatinine up to 1.26 today. I will continue hydration repeat BMP in a.m. May 19, 2019-creatinine bumped up to over 2.[address] Abernathy was consulted. I did a fractional secretion sodium showed a 4.26 which shows a postobstructive uropathy. I discussed this with Dr. Abernathy she thinks it may be a contrast associated uropathy as patient did get contrast 2 days ago. Patient remains on normal saline 150 mL an hour she is making good urine per Salguero. I did have nurses do a bladder scan which showed 130 cc. At that time Salguero was flushed at 188 cc returned. Will await further recognitions per nephrology May 20, 2019-creatinine at 3.06 this a.m. I suspect that this to be plat eauing at this time. Patient will remain hydrated with normal saline at 175 an hour. Patient making good urine at this time. Patient was followed by Dr. Abernathy nephrology and she concurs with current assessment. (8) Nutrition impaired due to imbalance of nutrients Is this a current diagnosis for this admission?: Yes Plan: May 20, 2019-patient remains with Dobbhoff in place. Patient remains on vital 1.5 at 30 mL an hour. Tolerating well - Time Time Spent with patient: 25-34 minutes - Inpatient Certification Based on my medical assessment, after consideration of the patient's comorbidities, presenting symptoms, or acuity I expect that the services needed warrant INPATIENT care.: Yes I certify that my determination is in accordance with my understanding of Medicare's requirements for reasonable and necessary INPATIENT services [42 CFR 412.3e].: Yes Medical Necessity: Other - Intubated, IV antibiotics, IV fluids, IV pain management and sedation.
--- NOTE | 2019-05-20 18:33 | ADVANCED CARE ---
- Diagnosis (1) Pancreatitis, acute Diagnosis Current: Yes (2) Abdominal pain Diagnosis Current: Yes (3) Encephalopathy Diagnosis Current: Yes (4) Autism Diagnosis Current: Yes (5) UTI (urinary tract infection) Diagnosis Current: Yes (6) Acute respiratory failure Diagnosis Current: Yes (7) LAISHA (acute kidney injury) Diagnosis Current: Yes (8) Nutrition impaired due to imbalance of nutrients Diagnosis Current: Yes Attendance: Myself patient and her mother and father Resuscitation Status: Full Code Discussion: Long discussion about plan of care for patient. At this time we DC Versed drip will place patient on Precedex to make her easier to extubate. I will leave fentanyl drip at 25 mics. I have DC'd her vent to SIMV of 4 she is overbreathing to 24 at this time I told nurses to watch that if she started having fatigue to turn her back on a rate of 14. I did decrease her PEEP to 0 and she does not need this PEEP at this time she was not intubated for any respiratory issues. We will shoot for extubation on Wednesday earlier if possible. Patient continues with a lipase of 900 this morning continue n.p.o. continue IV hydration continue tube feedings. Patient's family in agreement with plan of care Care Planning Goals: 1-DC Versed drip 2-Precedex drip for sedation 3-decrease fentanyl drip to 25 mcg/h 4-continue tube feeds 5-continue hydration normal saline at 175 mL an hour 6-continue weaning trials keep ventilator set at 4 SIMV with patient overbreathing if she fatigues place her on a rate of 14 0 PEEP Time Spent: 35 minutes
[2019-05-20] MEDS: HYDRALAZINE HCL INJ/PF 20 MG/1 ML SDV IV PRN (21:14)
[2019-05-21] MEDS: IPRATROPIUM BROMIDE 0.02% NEB 0.5 MG/2.5 ML AMPUL NEB SCH ×4 (00:36→16:15)
[2019-05-21] MEDS: LEVALBUTEROL HCL NEB 1.25 MG/3 ML AMPUL NEB SCH ×3 (00:36→16:15)
[2019-05-21] MEDS: MIDAZOLAM HCL 50 MG/100 ML RTUINJ IV PRN (00:37)
[2019-05-21] MEDS: PIPERACILLIN SODIUM/TAZOBACTAM 2.25 GM in NORMAL SALINE 50 ML IV SCH ×4 (00:43→17:40)
[2019-05-21] MEDS: POLYMYXIN B SULFATE/TMP OPH SOLN 10 ML OD SCH ×8 (00:44→20:47)
[2019-05-21] MEDS: INSULIN REG, HUMAN 100 UNIT/ML 3 ML VIAL (PYX) SUBCUT SCH ×4 (00:46→18:06)
[2019-05-21] MEDS ORDERED: FENTANYL CITRATE INJ/PF 100 MCG/2 ML AMPUL ONE (00:49)
[2019-05-21] MEDS: ALBUMIN HUMAN 12.5 GM/50 ML RTUINJ IV SCH ×3 (02:31→17:40)
[2019-05-21] MEDS ORDERED: FENTANYL CITRATE INJ/PF 250 MCG/5 ML AMPULE IV ONE (02:45)
[2019-05-21 04:06] LABS: ARTERIAL BLOOD BASE EXCESS -7.2 mmol/L; ARTERIAL BLOOD FIO2 28%; ARTERIAL BLOOD H2CO3 0.94 mmol/L (1.05-1.35); ARTERIAL BLOOD HCO3 17.3 mmol/L (20-24); ARTERIAL BLOOD O2 SATURATION 98.2 % (94-98); ARTERIAL BLOOD PCO2 31.2 mmHg (35-45); ARTERIAL BLOOD PH 7.36 (7.35-7.45); ARTERIAL BLOOD PO2 116.3 mmHg (80-100); ARTERIAL BLOOD TOTAL CO2 18.3 mmol/L (21-25)
[2019-05-21 04:20] LABS: HEMATOCRIT 26.9 % (36.0-47.0); HEMOGLOBIN 8.9 g/dL (12.0-15.5); MEAN CORPUSCULAR HEMOGLOBIN 32.3 pg (27.0-33.4); MEAN CORPUSCULAR VOLUME 98 fl (80-97); PLATELET COUNT 151 10^3/uL (150-450); RED BLOOD COUNT 2.75 10^6/uL (3.72-5.28); RED CELL DISTRIBUTION WIDTH 15.7 % (11.5-14.0); WHITE BLOOD COUNT 7.1 10^3/uL (4.0-10.5)
[2019-05-21 04:27] LABS: ALBUMIN 2.6 g/dL (3.7-5.6); ALKALINE PHOSPHATASE 61 U/L (50-135); ANION GAP 6 (5-19); ASPARTATE AMINO TRANSFERASE 21 U/L (5-30); BILIRUBIN,DIRECT 0.5 mg/dL (0.0-0.4); BILIRUBIN,TOTAL 0.5 mg/dL (0.2-1.3); BLOOD UREA NITROGEN 20 mg/dL (7-20); CALCIUM 8.1 mg/dL (8.4-10.2); CARBON DIOXIDE 20 mmol/L (22-30); CHLORIDE 120 mmol/L (98-107); GLUCOSE 97 mg/dL (75-110); POTASSIUM 4.3 mmol/L (3.6-5.0); TOTAL PROTEIN 5.4 g/dL (6.3-8.2)
[2019-05-21] MEDS: HYDRALAZINE HCL INJ/PF 20 MG/1 ML SDV IV PRN ×4 (04:35→21:05)
[2019-05-21] MEDS: DEXMEDETOMIDINE IN NS 400 MCG/100 ML RTUPB IV PRN ×5 (04:45→21:41)
[2019-05-21 04:57] LABS: ABSOLUTE LYMPHOCYTES# (MANUAL) 1.1 10^3/uL (0.5-4.7); ABSOLUTE MONOCYTES # (MANUAL) 0.6 10^3/uL (0.1-1.4); ANISOCYTOSIS 1+; BASOPHILS % (MANUAL) 0 % (0-2); EOSINOPHILS % (MANUAL) 0 % (0-6); HYPOCHROMASIA 1+; LYMPHOCYTES % (MANUAL) 16 % (13-45); MONOCYTES % (MANUAL) 8 % (3-13); ROULEAUX SLIGHT; SEGMENTED NEUTROPHILS % (MAN) 76 % (42-78); TOTAL CELLS COUNTED 100
[2019-05-21 04:58] LABS: PLATELET COMMENT ADEQUATE
[2019-05-21] MEDS: NORMAL SALINE 1000 ML 1,000 ML IV PRN (05:11)
[2019-05-21] MEDS: HEPARIN SOD (PORCINE) 5,000 UNIT/ML 1 ML VIAL SUBCUT SCH ×3 (05:17→21:05)
[2019-05-21] MEDS ORDERED: FUROSEMIDE INJ/PF 40 MG/4 ML SDV IV STA (07:46)
--- NOTE | 2019-05-21 09:03 | RADIOLOGY REPORT (SQ) ---
EXAM DESCRIPTION: CHEST SINGLE VIEW COMPLETED DATE/TIME: 05/21/2019 6:40 am REASON FOR STUDY: respiratory failure COMPARISON: 05/20/2019 EXAM PARAMETERS: NUMBER OF VIEWS: One view TECHNIQUE: Single frontal radiograph of the chest. RADIATION DOSE: N/A LIMITATIONS: None. FINDINGS: TEMPORARY SUPPORT DEVICES:ETT in expected location. NG tube courses below the miri-diaphr agm in to the stomach. PICC catheter from right peripheral approach is in expected location. LUNGS AND PLEURA: Low lung volumes. Increasing basilar opacities. No effusions. No masses. No pneum othorax. MEDIASTINUM AND HILAR STRUCTURES: No masses. Contour normal. HEART AND VASCULAR STRUCTURES: Heart normal in size. normal vascularity. Aorta normal for age. BONES: No acute findings. OTHER: No other significant finding. IMPRESSION: Low lung volumes with increasing basilar opacities. SUPPORT DEVICE(S) IN EXPECTED LOCATIONS. TECHNICAL DOCUMENTATION: JOB ID: [id number] [employer]- All Rights Reserved Reading location - IP/workstation name: [email or web address]
[2019-05-21] MEDS: NORETHINDRONE E ESTRADIOL IRON PO SCH (10:02)
[2019-05-21] MEDS: METOPROLOL TARTRATE 25 MG TABLET GT SCH ×2 (10:03→21:06)
[2019-05-21] MEDS: PANTOPRAZOLE SODIUM 40 MG VIAL IV SCH ×2 (10:03→21:05)
[2019-05-21] MEDS: DOCUSATE SODIUM 100 MG/10 ML UDC NG SCH ×2 (10:04→17:40)
[2019-05-21] MEDS: NORMAL SALINE 10 ML SDV (SCHEDULED) IV SCH ×2 (10:05→21:08)
[2019-05-21] MEDS ORDERED: FUROSEMIDE INJ/PF 40 MG/4 ML SDV IV SCH (14:00)
[2019-05-21 16:02] LABS: ANION GAP 10 (5-19); BLOOD UREA NITROGEN 23 mg/dL (7-20); CALCIUM 8.8 mg/dL (8.4-10.2); CARBON DIOXIDE 20 mmol/L (22-30); CHLORIDE 116 mmol/L (98-107); GLUCOSE 123 mg/dL (75-110); POTASSIUM 3.8 mmol/L (3.6-5.0)
[2019-05-21] MEDS: FENTANYL CITRATE/PF 600 MCG/60 ML BAG IV PRN (16:37)
--- NOTE | 2019-05-21 17:08 | PDOC PROGRESS REPORT ---
Subjective Progress Note for:: 05/21/19 Subjective:: May 16, 2019-unable to assess secondary to autism May 17, 2019-intubated sedated May 18, 2019-remains intubated sedated May 19, 2019- intubated and sedated. May 21, 2019-remains intubated and sedated Reason For Visit: ACUTE PANCREATITIS Physical Exam Vital Signs: Temp Pulse Resp BP Pulse Ox 96.8 F L 94 H 22 133/80 H 94 05/21/19 16:00 05/21/19 16:15 05/21/19 16:15 05/21/19 16:00 05/21/19 16:15 Intake & Output 05/20/19 05/21/19 05/22/19 06:59 06:59 06:59 Intake Total 5165 4650 876 Output Total 2115 3080 5160 Balance 3050 1570 -4284 Weight 107.8 kg 110.2 kg General appearance: PRESENT: no acute distress, well-developed, well-nourished Neck exam: ABSENT: carotid bruit, JVD, lymphadenopathy, thyromegaly Respiratory exam: PRESENT: decreased breath sounds, symmetrical, tachypnea, unlabored Cardiovascular exam: PRESENT: RRR. ABSENT: diastolic murmur, rubs, systolic murmur Pulses: PRESENT: normal dorsalis pedis pul Vascular exam: PRESENT: normal capillary refill GI/Abdominal exam: PRESENT: normal bowel sounds, soft. ABSENT: distended, guarding, mass, organolmegaly, rebound, tenderness Extremities exam: PRESENT: calf tenderness Neurological exam: PRESENT: other - Sedated intubated Psychiatric exam: PRESENT: other - Sedated and intubated Skin exam: PRESENT: dry, intact, warm. ABSENT: cyanosis, rash Results Laboratory Results: 05/21/19 03:45 05/21/19 15:12 05/21/19 05/21/19 05/21/19 03:45 03:45 03:45 WBC 7.1 RBC 2.75 L Hgb 8.9 L Hct 26.9 L MCV 98 H MCH 32.3 MCHC 33.0 RDW 15.7 H Plt Count 151 Seg Neutrophils % Not Reportable Lymphocytes % Not Reportable Monocytes % Not Reportable Eosinophils % Not Reportable Basophils % Not Reportable Absolute Neutrophils Not Reportable Absolute Lymphocytes Not Reportable Absolute Monocytes Not Reportable Absolute Eosinophils Not Reportable Absolute Basophils Not Reportable Carbonic Acid HCO3/H2CO3 Ratio ABG pH ABG pCO2 ABG pO2 ABG HCO3 ABG O2 Saturation ABG Base Excess FiO2 Sodium 146.1 H Potassium 4.3 Chloride 120 H Carbon Dioxide 20 L Anion Gap 6 BUN 20 Creatinine 3.03 H Est GFR ( Amer) 24 L Est GFR (Non-Af Amer) 20 L Glucose 97 Calcium 8.1 L Magnesium 2.0 Total Bilirubin 0.5 AST 21 Alkaline Phosphatase 61 Total Protein 5.4 L Albumin 2.6 L Lipase 1058.9 H 05/21/19 05/21/19 03:50 15:12 WBC RBC Hgb Hct MCV MCH MCHC RDW Plt Count Seg Neutrophils % Lymphocytes % Monocytes % Eosinophils % Basophils % Absolute Neutrophils Absolute Lymphocytes Absolute Monocytes Absolute Eosinophils Absolute Basophils Carbonic Acid 0.94 L HCO3/H2CO3 Ratio 18:1 ABG pH 7.36 ABG pCO2 31.2 L ABG pO2 116.3 H ABG HCO3 17.3 L ABG O2 Saturation 98.2 H ABG Base Excess -7.2 FiO2 28% Sodium 146.3 H Potassium 3.8 Chloride 116 H Carbon Dioxide 20 L Anion Gap 10 BUN 23 H Creatinine 2.95 H Est GFR ( Amer) 25 L Est GFR (Non-Af Amer) 20 L Glucose 123 H Calcium 8.8 Magnesium Total Bilirubin AST Alkaline Phosphatase Total Protein Albumin Lipase 05/17/19 11:06 Blood Blood Culture - Final Staphylococcus Epidermidis 05/19/19 09:07 Troponin I < 0.012 Impressions: Abdomen/Pelvis CT 05/17/19 00:00 IMPRESSION: 1. There is dense bibasilar consolidation and/or atelectasis of the bilateral lower lobes, with scattered clustered pulmonary nodules elsewhere, for example in the lingula. Findings are most consistent with multifocal infection or aspiration, however there is no appearance characteristic for ARDS, particularly no evidence of pulmonary edema or alveolar pattern airspace disease. 2. Redemonstrated inflammatory fat stranding about the pancreas, not significant change compared to prior examination. Findings are again consistent with pancreatitis and there is no evidence of focal fluid collection or other complication. 3. Small volume fluid in the abdomen and pelvis, likely reactive. Chest CT 05/17/19 00:00 IMPRESSION: 1. There is dense bibasilar consolidation and/or atelectasis of the bilateral lower lobes, with scattered clustered pulmonary nodules elsewhere, for example in the lingula. Findings are most consistent with multifocal infection or aspiration, however there is no appearance characteristic for ARDS, particularly no evidence of pulmonary edema or alveolar pattern airspace disease. 2. Redemonstrated inflammatory fat stranding about the pancreas, not significant change compared to prior examination. Findings are again consistent with pancreatitis and there is no evidence of focal fluid collection or other complication. 3. Small volume fluid in the abdomen and pelvis, likely reactive. Gastrostomy Tube Placement 05/18/19 00:00 IMPRESSION: Successful fluoroscopic guided placement of a NJ tube. Guidance Fluoroscopy 05/18/19 00:00 IMPRESSION: Successful fluoroscopic guided placement of a NJ tube. Interventional Vascular Procedure 05/19/19 00:00 IMPRESSION: SUCCESSFUL PLACEMENT OF A 5 FR DUAL LUMEN 39 CM PICC IN THE RIGHT BASILIC VEIN. PICC Line Insertion 05/19/19 00:00 IMPRESSION: SUCCESSFUL PLACEMENT OF A 5 FR DUAL LUMEN 39 CM PICC IN THE RIGHT BASILIC VEIN. Renal Ultrasound 05/19/19 00:00 IMPRESSION: 1. NORMAL RENAL ULTRASOUND. 2. The patient has a Salguero catheter. 3. Incidentally, gallstones. KUB X-Ray 05/19/19 06:00 IMPRESSION: Enteric tube tip overlies left abdomen, likely proximal jejunum. Chest X-Ray 05/21/19 06:00 IMPRESSION: Low lung volumes with increasing basilar opacities. SUPPORT DEVICE(S) IN EXPECTED LOCATIONS. Assessment and Plan - Diagnosis (1) Pancreatitis, acute Is this a current diagnosis for this admission?: Yes Plan: Patient is admitted to the medical floor. Lipase is elevated to 1882. Check lipid panel with a.m. lab work. Currently in n.p.o. status. Antiemetics and analgesics as needed. Have discussed with nursing, patient to receive 1 L normal saline bolus following her next pain medication administration (administer so as continuous IV fluids have caused the patient to have severe anxiety/agitation; this way her fluid boluses will hopefully be done by the time she wakes following morphine). She did receive 2 L normal saline by the ED provider yesterday. We will need to monitor closely for evidence of dehydration while getting intermittent fluid boluses. Advance to clear liquids as tolerated. May 16, 2019-awaiting repeat lipase. Continue n.p.o. status. Continue normal saline at 100 mL an hour. Once I have a review of her most recent lipase I will make determination on advancing diet at that time. May 17, 2019-repeat lipase done at 900 today. Continue n.p.o. status continue IV hydration. Patient remains on fentanyl 50 mcg every 2 hours as needed pain. May 18, 2019-slight elevation in lipase today. Keep patient completely n.p.o. Will have Dobbhoff placed postpyloric for tube feeds. May 19, 2019-lipase remains elevated at this time. Keep patient currently n.p.o. at this time. Continue to increase to Dobbhoff place all oral medic ations through Dobbhoff as well. Continue IV hydration normal saline 100 mL an hour. Will give patient albumin as well 12.5 g IV every 8 as patient's showing third spacing as well as low albumin at this time. May 20, 2019-slightly improved this morning. Keep patient n.p.o. Continue feeding through Dobbhoff at this time. Hydration continues as I turned up her normal saline 125 Reagan's hour yesterday given her albumin 12.5 g IV every 8 hours. May 21, 2019. Patient's lipase remains at 1000 today unsure why this is not improving. Patient remains n.p.o. getting feeding through a Dobbhoff. Hydration was stopped this morning as patient is started to get fluid overloaded. Patient was started on Lasix given initial bolus of 80 mg followed by 40 mg 3 times daily plan to extubate patient in the a.m. This pancreas may be chronic in nature want to continue to follow make changes plan of care as appropriate (2) Abdominal pain Is this a current diagnosis for this admission?: Yes Plan: Secondary to #1 Analgesics as needed. May 16, 2019-continue PRN morphine. May 17, 2019-morphine was DC'd. Patient placed on fentanyl 50 mcg every 2 hours as needed continue to give as needed May 18, 2019-continue fentanyl. Unable to gauge patient's pain secondary sedation May 19, 2019-Place patient on fentanyl drip at this time 75 mcg/hr May 20, 2019-patient remains on fentanyl drip decreased to 25 MCG/hr as were trying to extubate patient May 21, 2019-patient remains on for drip at 25 mcg/h (3) Encephalopathy Is this a current diagnosis for this admission?: Yes Plan: Complicated by severe autism Valproic acid 67.1 Continue home medication regiment. IV Ativan as needed Spoke with mental health, recommended as needed Thorazine. May 16, 2019-unable to assess secondary to severe autism. Continue home medications as well as as needed Ativan for agitation. We will continue Thorazine as needed as well. May 17, 2019-unable to assess as patient remains intubated and sedated May 21, 2019-remains intubated and sedated (4) Autism Is this a current diagnosis for this admission?: Yes Plan: Home medication regimen is continued. Family members are encouraged to stay with patient. Sitter for safety. May 16, 2019-continue home medications, sitter at bedside. May 17, 2019-continue home meds once patient is extubated. At this time will continue Depakote but change to IV form for behavior for when patient is extubated. May 21, 2019-remains intubated and sedated for some reason Depakote IV got DC'd we will reinitiate at this time. (5) UTI (urinary tract infection) Is this a current diagnosis for this admission?: Yes Plan: May 16, 2019-urine culture showing gram-negative rods. At this time we will start Rocephin 1 g IV daily await cultures returned with sensitivity. May 17, 2019-Rocephin was DC'd when patient removed ICU I placed her on Zosyn per pharmacy dosing await cultures for offending organism. May 18, 2019-patient continues on Zosyn per pharmacy dosing. Cultures returned showing UTI is E. coli with sensitivity to Zosyn. May 19, 2019-continue Zosyn May 20, 2019-patient remains on Zosyn at this time. May 21, 2019-patient remains on Zosyn (6) Acute respiratory failure Qualifiers: Respiratory failure complication: hypoxia and hypercapnia Qualified Code(s): J96.01 - Acute respiratory failure with hypoxia; J96.02 - Acute respiratory failure with hypercapnia Is this a current diagnosis for this admission?: Yes Plan: May 17, 2019-patient moved emergently to the ICU yesterday after experiencing respiratory failure secondary to narcotics and benzodiazepines for her acute pancreatitis. Patient was given Narcan and flumazenil on the floor which caused her to wake and upset her autism. Patient became very violent and uncontrollable at that time. Was taking 5 staff members to keep patient in bed and from crawling over the rails of the bed. Patient was moved to ICU and placed on the ventilator. She was stabilized yesterday. This morning when walking into the ICU patient was found to be showing desaturation on current ventilator settings with SIMV of 14, tidal volume 400, FiO2 21% and 5 of PEEP. Stat portable chest was obtained showed no acute findings although did look suspicious for an aspiration, stat ABG showed that patient was having hypoxia with a low PCO2, and patient continued to be agitated thrashing about in the bed. At that time I gave patient 100 mg of rocuronium to increase compliance with ventilator. This did not help initially we had to make various adjustments to ventilator. Overall patient required pressor rate of 24, tidal volume of 450, PEEP of 12, FiO2 100% and finally showed the ability to hold her saturation of 96-97%. Patient was also started on Versed drip to help with sedation. Patient remains on dipper Van at this time but was maxed out at 50 mics per minute. Stat CT of the chest, abdomen and pelvis was obtained. CT showed aspiration possible bilateral infiltrate suggestive of pneumonia no new findings on abdomen pelvis other than continued inflammation of the pancreas. Patient was placed on IV vancomycin for this aspiration pneumonia as well as Zosyn. Patient much more couple this time we have been titrating down her FiO2, rate and PEEP support and have it almost to baseline at this point. I spent a total of 1 hour today in critical care time initially monitoring may change plan of care. On monitor heart rate, blood pressure, respiratory rate, laboratory database, chest x-ray, CT of abdomen pelvis. May 18, 2019-patient remains intubated and sedated. Ventilator stable at this time SIMV 16, tidal volume 400, PEEP of 5 and 25% FiO2. May 19, 2019-patient remains intubated sedated. Patient was intubated for medical management of her medical conditions not for her rest yusra failure per se. Patient with severe autism unable to communicate and extremely livid when not sedated. Patient remains on ventilator at current settings. May 20, 2019-patient remains intubated and sedated at this time. I got her ventilator settings as SIMV of 4 she is overbreathing to 24. I decreased her PEEP to 0 and she has no need for PEEP at this time as her blood gas remained stable. Patient was placed on Precedex in order to keep her calm so that we could easily extubate her by Wednesday. May 21, 2019-patient remains intubated. Sedated with Precedex and 25 mcg/h of fentanyl. Plan is to extubate in the a.m. Right now patient is on SIMV of 14 tidal volume 421% and 5 of PEEP. Patient chest x-ray this a.m. showed gross overload secondary to massive amounts of fluid she was getting for her pancreatitis. IV fluids been held at this time started patient on Lasix this morning 80 mg initially followed by 40 mg IV 3 times daily. Will repeat chest x-ray in a.m. and continue to follow patient. (7) LAISHA (acute kidney injury) Is this a current diagnosis for this admission?: Yes Plan: May 18, 2019-patient's creatinine up to 1.26 today. I will continue hydration repeat BMP in a.m. May 19, 2019-creatinine bumped up to over 2.[address] Abernathy was consulted. I did a fractional secretion sodium showed a 4.26 which shows a postobstructive uropathy. I discussed this with Dr. Abernathy she thinks it may be a contrast associated uropathy as patient did get contrast 2 days ago. Patient remains on normal saline 150 mL an hour she is making good urine per Salguero. I did have nurses do a bladder scan which showed 130 cc. At that time Salguero was flushed at 188 cc returned. Will await further recognitions per nephrology May 20, 2019-creatinine at 3.06 this a.m. I suspect that this to be plateauing at this time. Patient will remain hydrated with normal saline at 175 an hour. Patient making good urine at this time. Patient was followed by Dr. Abernathy nephrology and she concurs with current assessment. May 21, 2019-improving. Continue to follow daily BMPs (8) Nutrition impaired due to imbalance of nutrients Is this a current diagnosis for this admission?: Yes Plan: May 20, 2019-patient remains with Dobbhoff in place. Patient remains on vital 1.5 at 30 mL an hour. Tolerating well May 21, 2019-continue vital 1.5 at 30 mL/h. - Time Time Spent with patient: 25-34 minutes - Inpatient Certification Based on my medical assessment, after consideration of the patient's comorbidities, presenting symptoms, or acuity I expect that the services needed warrant INPATIENT care.: Yes I certify that my determination is in accordance with my understanding of [facility]'s requirements for reasonable and necessary INPATIENT services [42 CFR 412.3e].: Yes Medical Necessity: Other - Intubated and sedated IV antibiotics
[2019-05-21 18:00] LABS: ARTERIAL BLOOD BASE EXCESS -2.4 mmol/L; ARTERIAL BLOOD FIO2 21%; ARTERIAL BLOOD H2CO3 1.03 mmol/L (1.05-1.35); ARTERIAL BLOOD HCO3 21.6 mmol/L (20-24); ARTERIAL BLOOD O2 SATURATION 96.2 % (94-98); ARTERIAL BLOOD PCO2 34.2 mmHg (35-45); ARTERIAL BLOOD PH 7.42 (7.35-7.45); ARTERIAL BLOOD PO2 80.7 mmHg (80-100); ARTERIAL BLOOD TOTAL CO2 22.7 mmol/L (21-25)
[2019-05-21] MEDS ORDERED: VALPROATE SODIUM INJ/PF 500 MG/5 ML SDV IV SCH (18:00)
[2019-05-21] MEDS ORDERED: BUMETANIDE INJ/PF 1 MG/4 ML SDV IV ONE (20:15)
[2019-05-21] MEDS: LORAZEPAM INJ 2 MG/1 ML VIAL IV PRN (20:45)
[2019-05-21] MEDS: PROPRANOLOL HCL 10 MG TABLET NG SCH (21:13)
[2019-05-21] MEDS ORDERED: CHLORPROMAZINE HCL 50 MG TABLET ONE (21:15)
[2019-05-21] MEDS ORDERED: VALPROATE SODIUM SYRUP 250 MG/5 ML UDCUP ONE (21:17)
[2019-05-21] MEDS ORDERED: QUETIAPINE FUMARATE 25 MG TABLET ONE (21:17)
[2019-05-21] MEDS: VALPROATE SODIUM SYRUP 250 MG/5 ML UDCUP NG SCH (21:22)
[2019-05-21] MEDS: QUETIAPINE FUMARATE 25 MG TABLET NG SCH (21:24)
[2019-05-21] MEDS: CHLORPROMAZINE HCL 50 MG TABLET NG SCH (21:25)
[2019-05-21] MEDS ORDERED: TRAZODONE HCL 50 MG TABLET NG SCH (22:00)
[2019-05-22] MEDS: LORAZEPAM INJ 2 MG/1 ML VIAL IV PRN ×2 (00:07→03:56)
[2019-05-22] MEDS: POLYMYXIN B SULFATE/TMP OPH SOLN 10 ML OD SCH ×6 (00:08→14:31)
[2019-05-22] MEDS: INSULIN REG, HUMAN 100 UNIT/ML 3 ML VIAL (PYX) SUBCUT SCH ×3 (00:08→11:19)
[2019-05-22] MEDS: PIPERACILLIN SODIUM/TAZOBACTAM 2.25 GM in NORMAL SALINE 50 ML IV SCH ×3 (00:09→11:19)
[2019-05-22] MEDS: LEVALBUTEROL HCL NEB 1.25 MG/3 ML AMPUL NEB SCH ×3 (00:19→16:05)
[2019-05-22] MEDS: IPRATROPIUM BROMIDE 0.02% NEB 0.5 MG/2.5 ML AMPUL NEB SCH ×3 (00:19→16:05)
[2019-05-22] MEDS: ALBUMIN HUMAN 12.5 GM/50 ML RTUINJ IV SCH ×2 (02:07→09:35)
[2019-05-22] MEDS: DEXMEDETOMIDINE IN NS 400 MCG/100 ML RTUPB IV PRN ×5 (03:57→15:51)
[2019-05-22 04:16] LABS: HEMATOCRIT 26.1 % (36.0-47.0); HEMOGLOBIN 8.8 g/dL (12.0-15.5); MEAN CORPUSCULAR HEMOGLOBIN 32.7 pg (27.0-33.4); MEAN CORPUSCULAR HGB CONC 33.9 g/dL (32.0-36.0); MEAN CORPUSCULAR VOLUME 97 fl (80-97); PLATELET COUNT 166 10^3/uL (150-450); RED CELL DISTRIBUTION WIDTH 15.4 % (11.5-14.0); WHITE BLOOD COUNT 7.1 10^3/uL (4.0-10.5)
[2019-05-22 04:17] LABS: ARTERIAL BLOOD BASE EXCESS -1.8 mmol/L; ARTERIAL BLOOD HCO3 22.5 mmol/L (20-24); ARTERIAL BLOOD O2 SATURATION 90.2 % (94-98); ARTERIAL BLOOD PCO2 36.5 mmHg (35-45); ARTERIAL BLOOD PH 7.41 (7.35-7.45); ARTERIAL BLOOD PO2 57.3 mmHg (80-100); ARTERIAL BLOOD TOTAL CO2 23.6 mmol/L (21-25)
[2019-05-22 04:40] LABS: ALBUMIN 3.5 g/dL (3.7-5.6); ALKALINE PHOSPHATASE 67 U/L (50-135); ANION GAP 10 (5-19); ASPARTATE AMINO TRANSFERASE 19 U/L (5-30); BILIRUBIN,DIRECT 0.5 mg/dL (0.0-0.4); BILIRUBIN,TOTAL 0.6 mg/dL (0.2-1.3); BLOOD UREA NITROGEN 26 mg/dL (7-20); CARBON DIOXIDE 25 mmol/L (22-30); CHLORIDE 114 mmol/L (98-107); GLUCOSE 117 mg/dL (75-110); POTASSIUM 3.8 mmol/L (3.6-5.0); TOTAL PROTEIN 6.4 g/dL (6.3-8.2)
[2019-05-22 04:48] LABS: ARTERIAL BLOOD FIO2 21%
[2019-05-22] MEDS ORDERED: FENTANYL CITRATE INJ/PF 100 MCG/2 ML AMPUL ONE ×2 (05:37→10:29)
[2019-05-22] MEDS ORDERED: FENTANYL CITRATE INJ/PF 100 MCG/2 ML AMPUL IV ONE ×2 (06:00→10:13)
[2019-05-22] MEDS: VALPROATE SODIUM SYRUP 250 MG/5 ML UDCUP NG SCH ×2 (06:16→14:29)
[2019-05-22] MEDS: HEPARIN SOD (PORCINE) 5,000 UNIT/ML 1 ML VIAL SUBCUT SCH ×2 (06:16→14:30)
[2019-05-22] MEDS: CHLORPROMAZINE HCL 50 MG TABLET NG SCH ×2 (06:17→14:31)
[2019-05-22] MEDS: QUETIAPINE FUMARATE 25 MG TABLET NG SCH ×2 (06:17→14:31)
[2019-05-22] MEDS: PROPRANOLOL HCL 10 MG TABLET NG SCH ×2 (06:17→14:30)
[2019-05-22] MEDS: HYDRALAZINE HCL INJ/PF 20 MG/1 ML SDV IV PRN ×2 (06:18→12:16)
[2019-05-22] MEDS: BUMETANIDE INJ/PF 1 MG/4 ML SDV IV SCH ×2 (06:29→14:29)
[2019-05-22] MEDS ORDERED: VALPROATE SODIUM INJ/PF 500 MG/5 ML SDV IV SCH (08:00)
--- NOTE | 2019-05-22 08:59 | RADIOLOGY REPORT (SQ) ---
EXAM DESCRIPTION: CHEST SINGLE VIEW COMPLETED DATE/TIME: 05/22/2019 6:34 am REASON FOR STUDY: on ventilator COMPARISON: 05/21/2019. EXAM PARAMETERS: NUMBER OF VIEWS: One view. TECHNIQUE: Single frontal radiographic view of the chest acquired. RADIATION DOSE: NA LIMITATIONS: None. FINDINGS: LUNGS AND PLEURA: Low lung volumes. Bilateral airspace disease. MEDIASTINUM AND HILAR STRUCTURES: No masses. Contour normal. HEART AND VASCULAR STRUCTURES: Heart normal in size. Normal vasculature. BONES: No acute findings. HARDWARE: Stable endotracheal tube and PICC line. Feeding tube with the distal end not visualized bu t located in the abdomen. OTHER: No other significant finding. IMPRESSION: NO CHANGE IN APPEARANCE OF THE CHEST. TECHNICAL DOCUMENTATION: JOB ID: [id number] [employer]- All Rights Reserved Reading location - IP/workstation name: [email or web address]
[2019-05-22] MEDS: DOCUSATE SODIUM 100 MG/10 ML UDC NG SCH (09:32)
[2019-05-22] MEDS: METOPROLOL TARTRATE 25 MG TABLET GT SCH (09:32)
[2019-05-22] MEDS: NORETHINDRONE E ESTRADIOL IRON PO SCH (09:34)
[2019-05-22] MEDS: NORMAL SALINE 10 ML SDV (SCHEDULED) IV SCH (09:35)
[2019-05-22] MEDS: PANTOPRAZOLE SODIUM 40 MG VIAL IV SCH (09:35)
[2019-05-22] MEDS ORDERED: CLINDAMYCIN 600 MG/D5W RTU 600 MG/50 ML RTUPB IV SCH (10:00)
[2019-05-22] MEDS ORDERED: TRIHEXYPHENIDYL HCL 5 MG TABLET NG SCH (11:30)
--- NOTE | 2019-05-22 12:10 | RADIOLOGY REPORT (SQ) ---
EXAM DESCRIPTION: CT CHEST WITHOUT COMPLETED DATE/TIME: 05/22/2019 11:47 am REASON FOR STUDY: resp failure COMPARISON: 05/17/2019. TECHNIQUE: CT scan performed of the chest without intravenous contrast. Images reviewed with lung, soft tissue and bone windows. Reconstructed coronal and sagittal MPR images reviewed. All images st ored on PACS. All CT scanners at this facility use dose modulation, iterative reconstruction, and/or weight based d osing when appropriate to reduce radiation dose to as low as reasonably achievable (ALARA). [facility]: Dose Right [facility]: CareDose [facility]: Dose Right [facility]: Teradose 4D [facility]: SimGym RADIATION DOSE: CT Rad equipment meets quality standard of care and radiation dose reduction techniq ues were employed. CTDIvol: 16.4 mGy. DLP: 491 mGy-cm. mGy. LIMITATIONS: No technical limitations. FINDINGS: LUNGS AND PLEURA: Bilateral lower lobe consolidations with air bronchograms. A few faint patchy densities in the upper lobes and in the lingula. Small pleural effusions. HILAR AND MEDIASTINAL STRUCTURES: No identified masses or abnormal nodes. No obvious aneurysm. HEART AND VASCULAR STRUCTURES: No aneurysm. No pericardial effusion. UPPER ABDOMEN: No significant findings. Limited exam. THYROID AND OTHER SOFT TISSUES: No masses. No adenopathy. BONES: No significant finding. HARDWARE: Endotracheal tube, PICC line, nasogastric tube. All appear to be in satisfactory location. OTHER: No other significant findings. IMPRESSION: BILATERAL LOWER LOBE CONSOLIDATIONS WITH AIR BRONCHOGRAMS. SLIGHTLY WORSE COMPARED TO T HE PRIOR CT. SMALL PLEURAL EFFUSIONS. TECHNICAL DOCUMENTATION: JOB ID: [id number] Quality ID # [id number]: Final reports with documentation of one or more dose reduction techniques (e.g., Au tomated exposure control, adjustment of the mA and/or kV according to patient size, use of iterative reconstruction technique) 2010 [email or web address]- All Rights Reserved Reading location - IP/workstation name: [email or web address]
--- NOTE | 2019-05-22 13:12 | PDOC TRANSFER SUMMARY ---
General Admission Date/PCP: 05/14/19 20:24 MERRICK ALONSO, [employer]-C Resuscitation Status: Full Code - Transfer Diagnosis (1) Acute respiratory failure Is this a current diagnosis for this admission?: Yes Diagnosis Summary: May 17, 2019-patient moved emergently to the ICU yesterday after experiencing respiratory failure secondary to narcotics and benzodiazepines for her acute pancreatitis. Patient was given Narcan and flumazenil on the floor which caused her to wake and upset her autism. Patient became very violent and uncontrollable at that time. Was taking 5 staff members to keep patient in bed and from crawling over the rails of the bed. Patient was moved to ICU and placed on the ventilator. She was stabilized yesterday. This morning when walking into the ICU patient was found to be showing desaturation on current ventilator settings with SIMV of 14, tidal volume 400, FiO2 21% and 5 of PEEP. Stat portable chest was obtained showed no acute findings although did look suspicious for an aspiration, stat ABG showed that patient was having hypoxia with a low PCO2, and patient continued to be agitated thrashing about in the bed. At that time I gave patient 100 mg of rocuronium to increase compliance with ventilator. This did not help initially we had to make various adjustments to ventilator. Overall patient required pressor rate of 24, tidal volume of 450, PEEP of 12, FiO2 100% and finally showed the ability to hold her saturation of 96-97%. Patient was also started on Versed drip to help with sedation. Patient remains on dipper Van at this time but was maxed out at 50 mics per minute. Stat CT of the chest, abdomen and pelvis was obtained. CT showed aspiration possible bilateral infiltrate suggestive of pneumonia no new findings on abdomen pelvis other than continued inflammation of the pancreas. Patient was placed on IV vancomycin for this aspiration pneumonia as well as Zosyn. Patient much more couple this time we have been titrating down her FiO2, rate and PEEP support and have it almost to baseline at this point. I spent a total of 1 hour today in critical care time initially monitoring may change plan of care. On monitor heart rate, blood pressure, respiratory rate, laboratory database, chest x-ray, CT of abdomen pelvis. May 18, 2019-patient remains intubated and sedated. Ventilator stable at this time SIMV 16, tidal volume 400, PEEP of 5 and 25% FiO2. May 19, 2019-patient remains intubated sedated. Patient was intubated for medical management of her medical conditions not for her rest yusra failure per se. Patient with severe autism unable to communicate and extremely livid when not sedated. Patient remains on ventilator at current settings. May 20, 2019-patient remains intubated and sedated at this time. I got her ventilator settings as SIMV of 4 she is overbreathing to 24. I decreased her PEEP to 0 and she has no need for PEEP at this time as her blood gas remained stable. Patient was placed on Precedex in order to keep her calm so that we could easily extubate her by Wednesday. May 21, 2019-patient remains intubated. Sedated with Precedex and 25 mcg/h of fentanyl. Plan is to extubate in the a.m. Right now patient is on SIMV of 14 tidal volume 421% and 5 of PEEP. Patient chest x-ray this a.m. showed gross overload secondary to massive amounts of fluid she was getting for her pancreatitis. IV fluids been held at this time started patient on Lasix this morning 80 mg initially followed by 40 mg IV 3 times daily. Will repeat chest x-ray in a.m. and continue to follow patient. 05/22/2019-patient's remain intubated she is on Precedex and fentanyl. ABG this morning shows pH of 7.41/PCO2 36 PO2 57 pulse ox is 90%. CT scan done today shows bilateral consolidations those are persisting with bronchus grams and slightly worsening pleural effusions. Sputum cultures came back positive for staph aureus. Urine culture is positive for E. coli patient is presently on Zosyn and clindamycin vancomycin was discontinued 2 days ago because of the ATN. (2) LAISHA (acute kidney injury) Is this a current diagnosis for this admission?: Yes Diagnosis Summary: May 18, 2019-patient's creatinine up to 1.26 today. I will continue hydration repeat BMP in a.m. May 19, 2019-creatinine bumped up to over 2.[address] Abernathy was consulted. I did a fractional secretion sodium showed a 4.26 which shows a postobstructive uropathy. I discussed this with Dr. Abernathy she thinks it may be a contrast associated uropathy as patient did get contrast 2 days ago. Patient remains on normal saline 150 mL an hour she is making good urine per Salguero. I did have nurses do a bladder scan which showed 130 cc. At that time Salguero was flushed at 188 cc returned. Will await further recognitions per nephrology May 20, 2019-creatinine at 3.06 this a.m. I suspect that this to be plateauing at this time. Patient will remain hydrated with normal saline at 175 an hour. Patient making good urine at this time. Patient was followed by Dr. Abernathy nephrology and she concurs with current assessment. May 21, 2019-improving. Continue to follow daily BMPs 05/22/2019-creatinine went back up to 3.24 today. Yesterday's creatinine is 2.95. Baseline creatinine is around 0.7. Ultrasound is negative for hydronephrosis. (3) Pancreatitis, acute Is this a current diagnosis for this admission?: Yes Diagnosis Summary: Patient is admitted to the medical floor. Lipase is elevated to 1882. Check lipid panel with a.m. lab work. Currently in n.p.o. status. Antiemetics and analgesics as needed. Have discussed with nursing, patient to receive 1 L normal saline bolus following her next pain medication administration (administer so as continuous IV fluids have caused the patient to have severe anxiety/agitation; this way her fluid boluses will hopefully be done by the time she wakes following morphine). She did receive 2 L normal saline by the ED provider yesterday. We will need to monitor closely for evidence of dehydration while getting intermittent fluid boluses. Advance to clear liquids as tolerated. May 16, 2019-awaiting repeat lipase. Continue n.p.o. status. Continue normal saline at 100 mL an hour. Once I have a review of her most recent lipase I will make determination on advancing diet at that time. May 17, 2019-repeat lipase done at 900 today. Continue n.p.o. status continue IV hydration. Patient remains on fentanyl 50 mcg every 2 hours as needed pain. May 18, 2019-slight elevation in lipase today. Keep patient completely n.p.o. Will have Dobbhoff placed postpyloric for tube feeds. May 19, 2019-lipase remains elevated at this time. Keep patient currently n.p.o. at this time. Continue to increase to Dobbhoff place all oral medica tions through Dobbhoff as well. Continue IV hydration normal saline 100 mL an hour. Will give patient albumin as well 12.5 g IV every 8 as patient's showing third spacing as well as low albumin at this time. May 20, 2019-slightly improved this morning. Keep patient n.p.o. Continue feeding through Dobbhoff at this time. Hydration continues as I turned up her normal saline 125 Reagan's hour yesterday given her albumin 12.5 g IV every 8 hours. May 21, 2019. Patient's lipase remains at 1000 today unsure why this is not improving. Patient remains n.p.o. getting feeding through a Dobbhoff. Hydration was stopped this morning as patient is started to get fluid overloaded. Patient was started on Lasix given initial bolus of 80 mg followed by 40 mg 3 times daily plan to extubate patient in the a.m. This pancreas may be chronic in nature want to continue to follow make changes plan of care as appropriate 05/22/2019-lipase today is 1195. Trending back up. Patient is on Dobbhoff feedings. Patient might need a ERCP. Patient is in valproic acid not sure whether it is a contributing factor for elevated lipase. Valproic acid is on hold for now. (4) Encephalopathy Is this a current diagnosis for this admission?: Yes Diagnosis Summary: Complicated by severe autism Valproic acid 67.1 Continue home medication regiment. IV Ativan as needed Spoke with mental health, recommended as needed Thorazine. May 16, 2019-unable to assess secondary to severe autism. Continue home medications as well as as needed Ativan for agitation. We will continue Thorazine as needed as well. May 17, 2019-unable to assess as patient remains intubated and sedated May 21, 2019-remains intubated and sedated 05/22/2019-patient has history of autism. It complicated the management of the pain during the hospital stay. (5) Abdominal pain Is this a current diagnosis for this admission?: Yes Diagnosis Summary: Secondary to #1 Analgesics as needed. May 16, 2019-continue PRN morphine. May 17, 2019-morphine was DC'd. Patient placed on fentanyl 50 mcg every 2 hours as needed continue to give as needed May 18, 2019-continue fentanyl. Unable to gauge patient's pain secondary sedation May 19, 2019-Place patient on fentanyl drip at this time 75 mcg/hr May 20, 2019-patient remains on fentanyl drip decreased to 25 MCG/hr as were trying to extubate patient May 21, 2019-patient remains on for drip at 25 mcg/h 05/22/2019-patient is admitted with abdominal pain initially she was treated with as needed morphine. Presently she is intubated receiving fentanyl and Precedex. (6) UTI (urinary tract infection) Is this a current diagnosis for this admission?: Yes Diagnosis Summary: May 16, 2019-urine culture showing gram-negative rods. At this time we will start Rocephin 1 g IV daily await cultures returned with sensitivity. May 17, 2019-Rocephin was DC'd when patient removed ICU I placed her on Zosyn per pharmacy dosing await cultures for offending organism. May 18, 2019-patient continues on Zosyn per pharmacy dosing. Cultures returned showing UTI is E. coli with sensitivity to Zosyn. May 19, 2019-continue Zosyn May 20, 2019-patient remains on Zosyn at this time. May 21, 2019-patient remains on Zosyn 05/22/2019-patient is presently on Zosyn this morning IV clindamycin was added. (7) Aspiration pneumonia Is this a current diagnosis for this admission?: Yes Diagnosis Summary: 05/22/2019-patient might have aspirated but the rapid response was called on 05/16/2019. She was started on the antibiotics immediately CT chest was done initially shows consolidations repeat CAT scan shows today indicating persistence of the bilateral consolidations. Today patient had a CAT scan without contrast. sputum cultures came back positive for staph aureus. - Transfer Medications Home Medications: Chlorpromazine HCl [Chlorpromazine HCL 200 mg Tablet] 1 tab PO Q12 05/15/19 Divalproex Sodium [Depakote ER 500 mg Tab.sr] 1,000 mg PO QPM 05/15/19 Divalproex Sodium [Depakote ER 500 mg Tab.sr] 500 mg PO QAM 05/15/19 Guanfacine HCl 1 mg PO QAM 05/15/19 Guanfacine HCl 2 mg PO QHS 05/15/19 Natrexone 50 mg PO BID 05/15/19 Norethindrone-E.estradiol-Iron [Cntwnjjf-Pfxmfg-Xjri 1-0.02 mg] 1 each PO DAILY 05/15/19 Propranolol HCl [Inderal 10 mg Tablet] 10 mg PO Q12 05/15/19 Quetiapine Fumarate [Seroquel] 50 mg PO QAM 05/15/19 Quetiapine Fumarate [Seroquel] 150 mg PO QHS 05/15/19 Trazodone HCl [Desyrel] 300 mg PO QHS 05/15/19 Trihexyphenidyl HCl [Artane 5 mg Tablet] 5 mg PO DAILY 05/15/19 Transfer Medications: Current Medications Al Hydrox/Mg Hydrox/Simethicone (Maalox Plus Susp 30 Udcup) 30 ml NG Q6HP PRN PRN Reason: HEARTBURN Stop: 06/13/19 20:06 Bumetanide (Bumex Inj/Pf 1 Mg/4 Ml Sdv) 1 mg IV Q8 [facility] Stop: 06/21/19 05:59 Last Admin: 05/22/19 06:29 Dose: 1 mg Documented by: Chlorpromazine HCl (Thorazine 50 Mg Tablet) 100 mg NG Q8 ЕЛЕНА Stop: 06/20/19 21:59 Last Admin: 05/22/19 06:17 Dose: 100 mg Documented by: Dextrose (Dextrose Inj 50% Syringe (25 Gm/50 Ml)) 25 gm IV PRN PRN; Protocol PRN Reason: PER PROTOCOL Stop: 06/17/19 07:47 Dextrose (Dextrose Inj 50% Syringe (25 Gm/50 Ml)) 12.5 gm IV PRN PRN; Protocol PRN Reason: FOR BG 50-69 IN ALERT PATIENT Stop: 06/17/19 07:47 Docusate Sodium (Colace Udc 100 Mg/10 Ml Oral Soln) 100 mg NG BID [facility] Stop: 06/16/19 09:59 Last Admin: 05/22/19 09:32 Dose: 100 mg Documented by: Glucagon (Glucagen Inj 1 Mg Vial) 1 mg IM PRN PRN; Protocol PRN Reason: Evaluate for BG < 70 Stop: 06/17/19 07:47 Glucose (Glutose 40% Gel 15 Gm Tube) 15 gm PO PRN PRN; Protocol PRN Reason: FOR BG 50-69 IN ALERT PATIENT Stop: 06/17/19 07:47 Glucose (Glutose 40% Gel 15 Gm Tube) 30 gm PO PRN PRN; Protocol PRN Reason: FOR BG < 50 IN ALERT PATIENT Stop: 06/17/19 07:47 Heparin Sodium (Porcine) (Heparin Inj 5,000 Units/Ml 1 Ml Vial) 5,000 unit SUBCUT Q8 [facility] Stop: 06/13/19 21:59 Last Admin: 05/22/19 06:16 Dose: 5,000 unit Documented by: Heparin Sodium (Porcine) (Heparin Flush 10 Unit/Ml 5 Ml Disp.Syrg) 30 unit IV Q 12 ЕЛЕНА Stop: 06/18/19 21:59 Last Admin: 05/22/19 09:35 Dose: 30 unit Documented by: Heparin Sodium (Porcine) (Heparin Flush 10 Unit/Ml 5 Ml Disp.Syrg) 30 unit IV .AFTER EACH USE PRN Stop: 06/18/19 15:29 Hydralazine HCl (Apresoline Inj/Pf 20 Mg/1 Ml Sdv) 20 mg IV Q4HP PRN PRN Reason: Sbp >160 &/or Dbp >100 Stop: 06/16/19 10:58 Last Admin: 05/22/19 12:16 Dose: 20 mg Documented by: Albumin Human (Albuminar-25 Rtu Inj 12.5 Gm/50 Ml Premix) 12.5 gm in 50 mls @ 50 mls/hr IV Q8A [facility] Stop: 05/25/19 08:59 Last Infusion: 05/22/19 10:45 Dose: Infused Documented by: Piperacillin Sod/Tazobactam (Sod 2.25 gm/ Sodium Chloride) 50 mls @ 100 mls/hr IV Q6 [facility] Stop: 05/26/19 11:59 Last Infusion: 05/22/19 12:12 Dose: Infused Documented by: Fentanyl Citrate ([employer]ist/Pf 600 Mcg/60 Ml Rtu Vial) 600 mcg in 60 mls @ 7.5 mls/hr IV ASDIR PRN; Protocol PRN Reason: THIS MED IS NOT "PRN" Stop: 05/26/19 10:09 Last Admin: 05/21/19 16:37 Dose: 2.5 mls/hr Documented by: Dexmedetomidine/Sodium Chloride (Precedex 400 Mcg/Ns 100 Ml Iv Premix) 400 mcg in 100 mls @ 0 mls/hr IV CONTINUOUS PRN; Protocol PRN Reason: THIS MED IS NOT "PRN" Stop: 06/19/19 15:17 Last Titration: 05/22/19 11:45 Dose: 1.5 mcg/kg/hr, 40.43 mls/hr Documented by: Clindamycin Phosphate/Dextrose (Cleocin Rtu 600 Mg/D5w 50 Ml Premix) 600 mg in 50 mls @ 50 mls/hr IV Q8A [facility] Stop: 05/29/19 09:59 Last Infusion: 05/22/19 10:45 Dose: Infused Documented by: Insulin Human Regular (Humulin R (Pyxis) Insulin 100 Unit/Ml 3ml) 0 - 12 unit SUBCUT Q6 [facility]; Protocol Stop: 06/17/19 08:29 Last Admin: 05/22/19 11:19 Dose: Not Given Documented by: Ipratropium [place] (Atrovent 0.02% Neb 0.5 Mg/2.5 Ml Ampul) 0.5 mg NEB RTQ8 [facility] Stop: 06/18/19 07:59 Last Admin: 05/22/19 08:01 Dose: 0.5 mg Documented by: Levalbuterol HCl (Xopenex Neb 0.63 Mg/3 Ml Ampul) 0.63 mg NEB RTQ2HP PRN PRN Reason: SHORTNESS OF BREATH Stop: 06/18/19 04:49 Levalbuterol HCl (Xopenex Neb 1.25 Mg/3 Ml Ampul) 1.25 mg NEB RTQ8 [facility] Stop: 06/18/19 07:59 Last Admin: 05/22/19 08:01 Dose: 1.25 mg Documented by: Lorazepam (Ativan Inj 2 Mg/1 Ml Vial) 3 mg IV Q4HP PRN PRN Reason: AGITATION Stop: 05/28/19 20:07 Last Admin: 05/22/19 03:56 Dose: 3 mg Documented by: Metoprolol Tartrate (Lopressor Inj/Pf 5 Mg/5 Ml Sdv) 5 mg IV Q6HP PRN PRN Reason: GIVE FOR SBP > [] / DBP > [] Stop: 06/18/19 06:48 Last Admin: 05/21/19 05:27 Dose: 5 mg Documented by: Metoprolol Tartrate (Lopressor 25 Mg Tablet) 25 mg GT Q12 [facility] Stop: 06/18/19 10:59 Last Admin: 05/22/19 09:32 Dose: 25 mg Documented by: Pantoprazole Sodium (Protonix Iv Inj 40 Mg Vial) 40 mg IV Q12 ЕЛЕНА Stop: 05/25/19 21:59 Last Admin: 05/22/19 09:35 Dose: 40 mg Documented by: Patient Own Medication (Guanfacine Hcl [Guanfacine Hcl]) 2 mg PO .QHS ЕЛЕНА Stop: 06/14/19 21:59 Patient Own Medication (Natrexone) 50 mg PO .BID ЕЛЕНА Stop: 06/14/19 17:59 Patient Own Medication (Guanfacine Hcl [Guanfacine Hcl]) 1 mg PO .QAM ЕЛЕНА Stop: 06/15/19 07:59 Norethindrone-E. Estradiol-Iron [ Xxshoo-Ojosrg-Eh 1-0 .02(21)-75 1 dose PO DAILY ЕЛЕНА Stop: 06/16/19 14:59 Last Admin: 05/22/19 09:34 Dose: 1 tab Documented by: Pharmacy Profile Note (Medication Communication Order) 1 each [facility] .NOTICE NR Stop: 06/15/19 18:09 Polymyxin/Trimethoprim Sulfate (Polytrim Oph Soln 10 Ml) 1 drop OD Q3 ЕЛЕНА Stop: 05/25/19 14:59 Last Admin: 05/22/19 11:19 Dose: 1 drop Documented by: Propranolol HCl (Inderal 10 Mg Tablet) 10 mg NG Q8 ЕЛЕНА Stop: 06/20/19 21:59 Last Admin: 05/22/19 06:17 Dose: 10 mg Documented by: Quetiapine Fumarate (Seroquel 25 Mg Tablet) 50 mg NG Q8 ЕЛЕНА Stop: 06/20/19 21:59 Last Admin: 05/22/19 06:17 Dose: 50 mg Documented by: Sodium Chloride (Nacl 0.9% Inj/Pf 10 Ml Sdv) 10 ml IV Q12 ЕЛЕНА Stop: 06/18/19 21:59 Last Admin: 05/22/19 09:35 Dose: 10 ml Documented by: Sodium Chloride (Nacl 0.9% Inj/Pf 10 Ml Sdv) 10 ml IV .AFTER EACH USE PRN Stop: 06/18/19 15:29 Trazodone HCl (Desyrel 50 Mg Tablet) 300 mg NG QHS ЕЛЕНА Stop: 06/20/19 21:59 Last Admin: 05/21/19 21:12 Dose: 300 mg Documented by: Trihexyphenidyl HCl (Artane 5 Mg Tablet) 5 mg NG BID [facility] Stop: 06/21/19 11:29 Last Admin: 05/22/19 10:46 Dose: 5 mg Documented by: Valproate Sodium (Depakene Syrup 250 Mg/5 Ml Udcup) 500 mg NG Q8 [facility] Stop: 06/20/19 21:59 Last Admin: 05/22/19 06:16 Dose: 500 mg Documented by: - Allergies Allergies/Adverse Reactions: No Known Allergies Allergy (Verified 05/14/19 11:48) Hospital Course Hospital Course: 18 year old female with a past medical history of autism, obesity and nonverbal state at baseline. She presents with 2 episodes of vomiting and constipation prompting evaluation that required Ativan and ketamine sedation she is found to have acute pancreatitis and constipation with a lipase of 1800, CT with inflammatory changes about the pancreas and moderate stool retention. She is referred to the hospitalist for admission. She is in a drowsy state and uncooperative. Patient's family at bedside denies recent change in medications. Denies previous episode. -18-year-old female with history of autism morbid obesity, nonverbal at baseline admitted for pancreatitis on 05/15/19 . In the emergency room patient was given Ativan and ketamine sedation. Lipase at the time of admission is 1800 CT scan shows inflammatory changes involving the pancreas. Patient was admitted to medical floor kept n.p.o., on IV fluids, and IV pain management. Patient has history of autism and Abilify, valproic acid and she was started on Haldol as needed. on 05/16/2019-Called the patient room by nursing staff patient lethargic and having sonorous and guppy breathing. Upon entering room patient unable to be aroused. This need for patient as patient 18-year-old and has severe and profound autism and is typically quite livid yelling, throwing things and screaming. Sternal rub was not able to arouse patient. Upon hooking up pulse ox patient had a O2 sat of 30%. I immediately called a code. Started bagging patient with 100% O2. Gave patient Narcan 0.4 mg IV x1. Patient did perk up some from this as she was getting morphine for acute pancreatitis. Patient subsequently received 0.5 mg of Romazicon IV for reversal of IV Ativan. After this was accomplished patient became extremely irate requiring 5 people to hold her down in the bed and trying to get herself out of the bed at the same time. Patient was unmanageable and decision made after talk to patient's family to place patient in ICU, intubate patient and sedate patient so that treatment could be easier for patient. I discussed this with partners and the medical staff they agree with assessment and plan. Patient was placed in ICU and emergently intubated with a #7.5 ET tube placed 22 at the lip showed 1.5 cm across above the wilda after chest x-ray. Initial ventilator settings IMV 14 tidal volume 450 and PEEP of 5 with 40% FiO2. I am awaiting an ABG at this time. Patient is on propofol IV for sedation, she is getting PRN fentanyl 50 mics every 2 hours for pain. IV hydration with normal saline 125 mL an hour for her acute patient has a repeat lipase in the a.m. Salguero cath was placed, NG tube was placed. At this time patient is stable sedate and able to be treated appropriately for her acute pancreatitis. 8.7-pt was started on vanc/zosyn Abdomen/Pelvis CT 05/17/19 00:00 IMPRESSION: 1. There is dense bibasilar consolidation and/or atelectasis of the bilateral lower lobes, with scattered clustered pulmonary nodules elsewhere, for example in the lingula. Findings are most consistent with multifocal infection or aspiration, however there is no appearance characteristic for ARDS, particularly no evidence of pulmonary edema or alveolar pattern airspace disease. 2. Redemonstrated inflammatory fat stranding about the pancreas, not s ignificant change compared to prior examination. Findings are again consistent with pancreatitis and there is no evidence of focal fluid collection or other complication. 3. Small volume fluid in the abdomen and pelvis, likely reactive. Chest CT 05/17/19 00:00 IMPRESSION: 1. There is dense bibasilar consolidation and/or atelectasis of the bilateral lower lobes, with scattered clustered pulmonary nodules elsewhere, for example in the lingula. Findings are most consistent with multifocal infection or aspiration, however there is no appearance characteristic for ARDS, particularly no evidence of pulmonary edema or alveolar pattern airspace disease. 2. Redemonstrated inflammatory fat stranding about the pancreas, not significant change compared to prior examination. Findings are again consistent with pancreatitis and there is no evidence of focal fluid collection or other complication. 3. Small volume fluid in the abdomen and pelvis, likely reactive. Chest X-Ray 05/17/19 07:43 IMPRESSION: Low lung volumes without evidence of new cardiopulmonary process. Satisfactory lines and tubes as above. [id number] started rising went up to 1.26 patient to remain intubated. 05/19/19- renal ultra sound .. normal kidneys... Creatinine went up to 2.5. nephrology consult was requested. Nephrology consult was requested. Patient remained nonoliguric =-graphic art technician impression is patient developed acute tubular necrosis secondary to IV contrast and vancomycin. Chest X-Ray 05/19/19 06:00 IMPRESSION: Low lung volumes with patchy opacities in the perihilar and left basilar region. Trace right effusion. Satisfactory position of the lines and tubes as above. dobbhoff was placed for tube feedings LIpase remain more than 900 May 20, 2019-patient remains intubated and sedated at this time. I got her ventilator settings as SIMV of 4 she is overbreathing to 24. I decreased her PEEP to 0 and she has no need for PEEP at this time as her blood gas remained stable. Patient was placed on Precedex in order to keep her calm so that we could easily extubate her by Wednesday. May 21, 2019-patient remains intubated. Sedated with Precedex and 25 mcg/h of fentanyl. Plan is to extubate in the a.m. Right now patient is on SIMV of 14 tidal volume 421% and 5 of PEEP. Patient chest x-ray this a.m. showed gross overload secondary to massive amounts of fluid she was getting for her pancreatitis. IV fluids been held at this time started patient on Lasix this morning 80 mg initially followed by 40 mg IV 3 times daily. Will repeat chest x-ray in a.m. and continue to follow patient. 05/22/2019- ct scan shows pesrsistent marisela consolidations with air bronchograms and slightly worsening effusions ABG ph 7.41/lxs705/po257/ox 92% cultures positive for e.coli in urine and sputum positive for staph aureus. presently on zosyn and clind .. vanco is stopped 2m days ago. Because of the persistent bilateral consolidations with air bronchograms and worsening pleural effusions and association with increasing lipase to 1200 today even the patient is n.p.o. and on IV fluids, urine culture showing E. coli sputum cultures growing MSSA and there is a question of fall patient may developing ARDS and there is a possibility patient may need ERCP I placed a call to hospital for possible transfer to admitted to the NICU under contract design agent. We do not have the services available but positive for ERCP. Patient's mother is also in the hospital patient's dad is requesting me to transfer they if possible. Patient's overall Condition is critical. pt remained nonoliguric. Physical Exam Vital Signs: Temp Pulse Resp BP Pulse Ox 98.4 F 85 14 144/102 H 95 05/22/19 12:00 05/22/19 12:00 05/22/19 12:28 05/22/19 12:28 05/22/19 12:28 Intake & Output 05/21/19 05/22/19 05/23/19 06:59 06:59 06:59 Intake Total 4650 1901 386 Output Total 3080 8990 1100 Balance 2395 -1365 -660 Weight 110.2 kg 104.6 kg General appearance: PRESENT: no acute distress, morbidly obese, other - Patient is intubated under sedation. Patient is presently on Precedex and on fentanyl for sedation. Head exam: PRESENT: atraumatic Eye exam: PRESENT: PERRLA Mouth exam: PRESENT: moist, tongue midline Neck exam: ABSENT: carotid bruit, JVD, lymphadenopathy, thyromegaly Respiratory exam: PRESENT: crackles, decreased breath sounds Cardiovascular exam: PRESENT: RRR. ABSENT: diastolic murmur, rubs, systolic murmur GI/Abdominal exam: PRESENT: normal bowel sounds, other - Patient has NG tube receiving NG tube feeds. Rectal exam: PRESENT: deferred Gentrourinary exam: PRESENT: indwelling catheter Extremities exam: PRESENT: full ROM. ABSENT: calf tenderness, clubbing, pedal edema Neurological exam: PRESENT: alert, awake, oriented to person, oriented to place, oriented to time, oriented to situation, CN II-XII grossly intact, other - Patient is intubated under sedation unable to do neuro exam.. ABSENT: motor sensory deficit Results Laboratory Results: 05/22/19 03:50 05/22/19 03:50 05/21/19 05/21/19 05/22/19 15:12 17:29 03:50 WBC 7.1 RBC 2.70 L Hgb 8.8 L Hct 26.1 L MCV 97 MCH 32.7 MCHC 33.9 RDW 15.4 H Plt Count 166 Carbonic Acid 1.03 L HCO3/H2CO3 Ratio 20:1 ABG pH 7.42 ABG pCO2 34.2 L ABG pO2 80.7 ABG HCO3 21.6 ABG O2 Saturation 96.2 ABG Base Excess -2.4 FiO2 21% Sodium 146.3 H Potassium 3.8 Chloride 116 H Carbon Dioxide 20 L Anion Gap 10 BUN 23 H Creatinine 2.95 H Est GFR ( Amer) 25 L Est GFR (Non-Af Amer) 20 L Glucose 123 H Calcium 8.8 Magnesium Total Bilirubin AST Alkaline Phosphatase Total Protein Albumin Lipase 05/22/19 05/22/19 05/22/19 03:50 03:50 04:00 WBC RBC Hgb Hct MCV MCH MCHC RDW Plt Count Carbonic Acid 1.10 HCO3/H2CO3 Ratio 20:1 ABG pH 7.41 ABG pCO2 36.5 ABG pO2 57.3 L ABG HCO3 22.5 ABG O2 Saturation 90.2 L ABG Base Excess -1.8 FiO2 21% Sodium 148.6 H Potassium 3.8 Chloride 114 H Carbon Dioxide 25 Anion Gap 10 BUN 26 H Creatinine 3.24 H Est GFR ( Amer) 22 L Est GFR (Non-Af Amer) 18 L Glucose 117 H Calcium 9.0 Magnesium 1.8 Total Bilirubin 0.6 AST 19 Alkaline Phosphatase 67 Total Protein 6.4 Albumin 3.5 L Lipase 1191.4 H 05/17/19 10:20 Blood Blood Culture - Final NO GROWTH IN 5 DAYS 05/17/19 11:06 Blood Blood Culture - Final Staphylococcus Epidermidis 05/19/19 09:07 Troponin I < 0.012 Impressions: Abdomen/Pelvis CT 05/17/19 00:00 IMPRESSION: 1. There is dense bibasilar consolidation and/or atelectasis of the bilateral lower lobes, with scattered clustered pulmonary nodules elsewhere, for example in the lingula. Findings are most consistent with multifocal infection or aspiration, however there is no appearance characteristic for ARDS, particularly no evidence of pulmonary edema or alveolar pattern airspace disease. 2. Redemonstrated inflammatory fat stranding about the pancreas, not significant change compared to prior examination. Findings are again consistent with pancreatitis and there is no evidence of focal fluid collection or other complication. 3. Small volume fluid in the abdomen and pelvis, likely reactive. Gastrostomy Tube Placement 05/18/19 00:00 IMPRESSION: Successful fluoroscopic guided placement of a NJ tube. Guidance Fluoroscopy 05/18/19 00:00 IMPRESSION: Successful fluoroscopic guided placement of a NJ tube. Interventional Vascular Procedure 05/19/19 00:00 IMPRESSION: SUCCESSFUL PLACEMENT OF A 5 FR DUAL LUMEN 39 CM PICC IN THE RIGHT BASILIC VEIN. PICC Line Insertion 05/19/19 00:00 IMPRESSION: SUCCESSFUL PLACEMENT OF A 5 FR DUAL LUMEN 39 CM PICC IN THE RIGHT BASILIC VEIN. Renal Ultrasound 05/19/19 00:00 IMPRESSION: 1. NORMAL RENAL ULTRASOUND. 2. The patient has a Salguero catheter. 3. Incidentally, gallstones. KUB X-Ray 05/19/19 06:00 IMPRESSION: Enteric tube tip overlies left abdomen, likely proximal jejunum. Chest CT 05/22/19 00:00 IMPRESSION: BILATERAL LOWER LOBE CONSOLIDATIONS WITH AIR BRONCHOGRAMS. SLIGHTLY WORSE COMPARED TO THE PRIOR CT. SMALL PLEURAL EFFUSIONS. Chest X-Ray 05/22/19 06:00 IMPRESSION: NO CHANGE IN APPEARANCE OF THE CHEST. Plan Discharge Plan: Hospital to hospital once contract design agent accepted the patient. Time Spent: Greater than 30 Minutes
[2019-05-22] MEDS: FENTANYL CITRATE/PF 600 MCG/60 ML BAG IV PRN (16:24)
[2019-05-22 17:18] VITALS: BP 131/88
--- NOTE | 2019-05-22 17:49 | PDOC PROGRESS REPORT ---
Subjective Progress Note for:: 05/22/19 Reason For Visit: Patient seen in the ICU today. She remains intubated and sedated. She has just returned from having a CT scan of her chest and abdomen. She was admitted with acute pancreatitis and severe constipation. Dependent respiratory failure may be after certain medications and had to be intubated and transferred to the ICU from the floor. She apparently now has also been diagnosed with aspiration pneumonia/pneumonitis. Patient however seems to be quite unstable. Admission creatinine was 0.9 on the fourth of this month and enrique up to 2.6 on 05/19 and today 3.2. Good urine output and in fact large volume urine output of 8 L. I was told by the nurse that she had been given IV Lasix yesterday. Case was discussed with the treating nurse as well as Dr. Banuelos/hospitalist.Patient remains unstable and possibility clinically deteriorating and decision is being made for possible transfer to tertiary care. Labs and medications were reviewed. Physical Exam Vital Signs: Temp Pulse Resp BP Pulse Ox 97.9 F 87 19 131/88 H 95 05/22/19 16:00 05/22/19 16:00 05/22/19 16:29 05/22/19 16:29 05/22/19 16:29 Intake & Output 05/21/19 05/22/19 05/23/19 06:59 06:59 06:59 Intake Total 4650 1901 602 Output Total 3080 8990 1825 Balance 0548 -4462 -5951 Weight 110.2 kg 104.6 kg Exam: Patient remains intubated and sedated. Respiratory exam: PRESENT: clear to auscultation marisela, crackles Cardiovascular exam: PRESENT: +S1, +S2 GI/Abdominal exam: PRESENT: normal bowel sounds, soft. ABSENT: organomegaly, tenderness Extremities exam: ABSENT: pedal edema Neurological exam: PRESENT: altered - Intubated and sedated. Skin exam: ABSENT: cyanosis, erythema, mottled, rash Results Laboratory Results: 05/22/19 03:50 05/22/19 03:50 05/21/19 05/22/19 05/22/19 17:29 03:50 03:50 WBC 7.1 RBC 2.70 L Hgb 8.8 L Hct 26.1 L MCV 97 MCH 32.7 MCHC 33.9 RDW 15.4 H Plt Count 166 Carbonic Acid 1.03 L HCO3/H2CO3 Ratio 20:1 ABG pH 7.42 ABG pCO2 34.2 L ABG pO2 80.7 ABG HCO3 21.6 ABG O2 Saturation 96.2 ABG Base Excess -2.4 FiO2 21% Sodium 148.6 H Potassium 3.8 Chloride 114 H Carbon Dioxide 25 Anion Gap 10 BUN 26 H Creatinine 3.24 H Est GFR ( Amer) 22 L Est GFR (Non-Af Amer) 18 L Glucose 117 H Calcium 9.0 Magnesium 1.8 Total Bilirubin 0.6 AST 19 Alkaline Phosphatase 67 Total Protein 6.4 Albumin 3.5 L Lipase 05/22/19 05/22/19 03:50 04:00 WBC RBC Hgb Hct MCV MCH MCHC RDW Plt Count Carbonic Acid 1.10 HCO3/H2CO3 Ratio 20:1 ABG pH 7.41 ABG pCO2 36.5 ABG pO2 57.3 L ABG HCO3 22.5 ABG O2 Saturation 90.2 L ABG Base Excess -1.8 FiO2 21% Sodium Potassium Chloride Carbon Dioxide Anion Gap BUN Creatinine Est GFR ( Amer) Est GFR (Non-Af Amer) Glucose Calcium Magnesium Total Bilirubin AST Alkaline Phosphatase Total Protein Albumin Lipase 1191.4 H 05/17/19 10:20 Blood Blood Culture - Final NO GROWTH IN 5 DAYS 05/19/19 09:07 Troponin I < 0.012 Impressions: Abdomen/Pelvis CT 05/17/19 00:00 IMPRESSION: 1. There is dense bibasilar consolidation and/or atelectasis of the bilateral lower lobes, with scattered clustered pulmonary nodules elsewhere, for example in the lingula. Findings are most consistent with multifocal infection or aspiration, however there is no appearance characteristic for ARDS, particularly no evidence of pulmonary edema or alveolar pattern airspace disease. 2. Redemonstrated inflammatory fat stranding about the pancreas, not significant change compared to prior examination. Findings are again consistent with pancreatitis and there is no evidence of focal fluid collection or other complication. 3. Small volume fluid in the abdomen and pelvis, likely reactive. Gastrostomy Tube Placement 05/18/19 00:00 IMPRESSION: Successful fluoroscopic guided placement of a NJ tube. Guidance Fluoroscopy 05/18/19 00:00 IMPRESSION: Successful fluoroscopic guided placement of a NJ tube. Interventional Vascular Procedure 05/19/19 00:00 IMPRESSION: SUCCESSFUL PLACEMENT OF A 5 FR DUAL LUMEN 39 CM PICC IN THE RIGHT BASILIC VEIN. PICC Line Insertion 05/19/19 00:00 IMPRESSION: SUCCESSFUL PLACEMENT OF A 5 FR DUAL LUMEN 39 CM PICC IN THE RIGHT BASILIC VEIN. Renal Ultrasound 05/19/19 00:00 IMPRESSION: 1. NORMAL RENAL ULTRASOUND. 2. The patient has a Salguero catheter. 3. Incidentally, gallstones. KUB X-Ray 05/19/19 06:00 IMPRESSION: Enteric tube tip overlies left abdomen, likely proximal jejunum. Chest CT 05/22/19 00:00 IMPRESSION: BILATERAL LOWER LOBE CONSOLIDATIONS WITH AIR BRONCHOGRAMS. SLIGHTLY WORSE COMPARED TO THE PRIOR CT. SMALL PLEURAL EFFUSIONS. Chest X-Ray 05/22/19 06:00 IMPRESSION: NO CHANGE IN APPEARANCE OF THE CHEST. Assessment & Plan - Diagnosis (1) LAISHA (acute kidney injury) Is this a current diagnosis for this admission?: Yes Plan: Nonoliguric. Clinically patient looks dry eyes/euvolemic. Suggest continuation with vigorous hydration especially in the setting of severe acute pancreatitis. Had a normal renal ultrasound done couple of days ago. Discussed with hospitalist. (2) Acute respiratory failure Qualifiers: Respiratory failure complication: hypoxia and hypercapnia Qualified Code(s): J96.01 - Acute respiratory failure with hypoxia; J96.02 - Acute respiratory failure with hypercapnia Is this a current diagnosis for this admission?: Yes Plan: Currently intubated and sedated.Possible underlying aspiration pneumonia/pneumonitis. (3) Aspiration pneumonia Is this a current diagnosis for this admission?: Yes Plan: Likely cause of her respiratory failure. (4) Pancreatitis, acute Is this a current diagnosis for this admission?: Yes Plan: Status quo. Has gallstones on renal ultrasound. Lipase is still remaining pretty high. May be she might need an ERCP. Management as per hospitalist.
== END 2019-05-22 17:10 | disposition short-term general hospital (02) | DRG 438 ==
LOC: ER 11:47 → EH 20:24 → 4N 23:39 → ICU 05-16 13:51
PROVIDERS: ADMIT Internal Medicine; ATTEND Internal Medicine
PROC: 5A1955Z Respiratory Ventilation, Greater than 96 Consecutive Hours (ICD-10-PCS; principal; 2019-05-16)
PROC: 0BH17EZ Insertion of Endotracheal Airway into Trachea, Via Natural or Artificial Opening (ICD-10-PCS; 2019-05-16)
PROC: 0DHA7UZ Insertion of Feeding Device into Jejunum, Via Natural or Artificial Opening (ICD-10-PCS; 2019-05-18)
PROC: BD16ZZZ Fluoroscopy of Upper GI and Small Bowel (ICD-10-PCS; 2019-05-18)
PROC: 02HV33Z Insertion of Infusion Device into Superior Vena Cava, Percutaneous Approach (ICD-10-PCS; 2019-05-19)
PROC: B548ZZA Ultrasonography of Superior Vena Cava, Guidance (ICD-10-PCS; 2019-05-19)
DX: K85.90 Acute pancreatitis without necrosis or infection, unspecified (principal); J96.01 Acute respiratory failure with hypoxia; J96.02 Acute respiratory failure with hypercapnia; J69.0 Pneumonitis due to inhalation of food and vomit; F84.0 Autistic disorder; N39.0 Urinary tract infection, site not specified; G93.40 Encephalopathy, unspecified; N17.9 Acute kidney failure, unspecified; E87.2 Acidosis; E83.42 Hypomagnesemia; E88.09 Other disorders of plasma-protein metabolism, not elsewhere classified; R45.1 Restlessness and agitation; B96.20 Unspecified Escherichia coli [E. coli] as the cause of diseases classified elsewhere; R26.89 Other abnormalities of gait and mobility; T40.605A Adverse effect of unspecified narcotics, initial encounter; T42.4X5A Adverse effect of benzodiazepines, initial encounter; Y92.230 Patient room in hospital as the place of occurrence of the external cause
CPT/HCPCS: 36415; 36569; 36600; 44500; 51701; 71045; 71250; 71260; 74018; 74177; 74340; 76770; 76937; 80048; 80053; 80061; 80076; 80164; 80202; 81001; 82140; 82150; 82570; 82803; 82962; 83036; 83605; 83690; 83735; 84100; 84300; 84478; 84484; 85025; 85027; 87040; 87070; 87077; 87086; 87088; 87186; 87205; 94002; 94003; 94640; 96361; 96372; 96374; 96375; 99285; C1769; J0360; J0696; J1642; J1644; J1800; J1885; J1940; J2060; J2250; J2270; J2310; J2543; J2704; J3010; J3230; J3370; J3475; J3490; J7030; J7050; J7060; J7620; P9047; S0164